=== PATIENT | female | born 1960 | race African-American/Black ===

== ENCOUNTER 2017-10-23 12:53 | Emergency (ER) | payer MEDICARE, MEDICAID ==
[2017-10-23 13:30] LABS: #Eosinphils 0.1 thou/uL (0.0-0.7); #Lymphocytes 1.9 thou/uL (1.20-3.40); #Monocytes 0.5 thou/uL (0.11-0.59); #Neutrophils 2.9 thou/uL (1.40-6.50); %Basophils 0.7 % (0.0-1.0); %Lymphocytes 34.4 % (21.0-51.0); %Monocytes 9.3 % (0.0-10.0); %Neutrophils 53.6 % (42.0-75.0); Hemoglobin 14.3 g/dL (12.0-16.0); Mean Corpuscular HGB CONC 33.9 g/dL (32.0-36.0); Mean Corpuscular Volume 85.5 fl (81.0-99.0); Mean Platelet Volume 9.1 fL (7.4-10.4); Platelet Count 198 thou/uL (130-400); RBC Distribution Width 12.7 % (11.5-14.5); Red Blood Cell (RBC) Count 4.93 mill/uL (4.20-5.40); White Blood Cell (WBC) Count 5.4 thou/uL (4.8-10.8)
[2017-10-23 13:50] LABS: ALT (SGPT) 30 U/L (8-55); AST (SGOT) 22 U/L (5-34); Albumin 3.6 g/dL (3.5-5.0); Alkaline Phosphatase 57 U/L (40-150); Anion Gap 14 mmol/L (10-20); BUN (Urea Nitrogen) 12 mg/dL (9.8-20.1); Bilirubin, Total 0.2 mg/dL (0.2-1.2); CK (CPK) 47 U/L (29-168); CKMB 0.8 ng/mL (0-6.6); Calc. Creatinine Clearance 0 mL/min (70-130); Calcium 10.7 mg/dL (7.8-10.44); Carbon Dioxide 22 mmol/L (22-29); Chloride 106 mmol/L (98-107); Estimated GFR-MDRD Greater than 90; Globulin 3.6 g/dL (2.4-3.5); Glucose 102 mg/dL (70-105); Lipase 40 U/L (8-78); Protein, Total 7.2 g/dL (6.0-8.3); Sodium 138 mmol/L (136-145); Troponin I Less than 0.010 ng/mL (< 0.028)
--- NOTE | 2017-10-23 13:58 | RAD ---
PORTABLE CHEST: HISTORY: Cough. FINDINGS: Comparison is made to a chest film from May 2012. There is new left perihilar opacity worrisome for left perihilar infiltrate or mass lesion. This nadir uld be closely followed with medical treatment to ensure clearing. The lungs are otherwise clear. No effusion. Heart size within normal range. IMPRESSION: Abnormal left perihilar opacity, probably representing perihilar infiltrate given history of cough. Close followup is recommended to ensure clearing. Followup exam should be performed with upright PA and lateral views of chest. POS: [facility]
[2017-10-23] MEDS ORDERED: ISOVUE-370 76%-LOCM 1 ML ONE (15:08)
--- NOTE | 2017-10-23 15:26 | CT ---
CT ANGIO CHEST WITH CONTRAST: INDICATIONS: Left perihilar mass/infiltrate noted on plain film. Assess the damage performed to assess for pulmon carl embolus and further assess this mass density seen on plain film. TECHNIQUE: Multiple axial tomograms obtained through the chest with arterial enhancement, following pulmonary an vicenta protocol. Multiplanar reconstruction and 3D post processing performed. FINDINGS: The pulmonary arteries show adequate opacification. No evidence of pulmonary embolus identified. The thoracic aorta shows atherosclerotic change and some irregularity of the lumen of the descending thoracic aorta. No dissection. There is a left infrahilar mass, measuring approximately 4 cm in diameter. This mass encircles the l eft descending pulmonary artery. The lungs are otherwise clear. The mediastinum is unremarkable. The imaged upper abdomen is unremar kable. The osseous structures are unremarkable. IMPRESSION: 1. No evidence of pulmonary embolus. 2. Left infrahilar mass, suspicious for neoplasm. Surrounding infiltrate cannot be excluded. Findi ngs were discussed with Dr. Yoon. POS: [facility]
--- NOTE | 2017-11-10 15:43 | EKG ---
Test Reason : Blood Pressure : / mmHG Vent. Rate : 086 BPM Atrial Rate : 086 BPM P-R Int : 140 ms QRS Dur : 084 ms QT Int : 386 ms P-R-T Axes : 069 065 074 degrees QTc Int : 461 ms Sinus rhythm with occasional Premature ventricular complexes Possible Left atrial enlargement Borderline ECG Confirmed by PRINCE ALFREDO, TAMIE ([id number]), scientific publications editor HARLEY CID ([id number]) on 11/10/2017 3:43:06 PM Referred By: Confirmed By:TAMIE MORRISON MD
== END 2017-10-23 15:21 | disposition home or self-care (01) ==
LOC: ERS 12:53
DX: R91.8 Other nonspecific abnormal finding of lung field (principal); E11.9 Type 2 diabetes mellitus without complications; I10 Essential (primary) hypertension; F17.210 Nicotine dependence, cigarettes, uncomplicated; Z79.899 Other long term (current) drug therapy; Z79.84 Long term (current) use of oral hypoglycemic drugs; Z86.718 Personal history of other venous thrombosis and embolism
CPT/HCPCS: 36416; 71045; 71275; 80053; 82550; 82553; 83690; 83880; 84484; 85025; 93005; 96360

== ENCOUNTER 2017-10-26 23:30 | Inpatient (IN) | payer MEDICARE, MEDICAID ==
[2017-10-26 23:57] LABS: #Basophils 0.1 thou/uL (0.0-0.2); #Eosinphils 0.2 thou/uL (0.0-0.7); #Lymphocytes 2.2 thou/uL (1.20-3.40); #Monocytes 0.7 thou/uL (0.11-0.59); #Neutrophils 3.9 thou/uL (1.40-6.50); %Basophils 1.3 % (0.0-1.0); %Eosinophils 2.1 % (0.0-10.0); %Lymphocytes 31.4 % (21.0-51.0); %Monocytes 10.1 % (0.0-10.0); %Neutrophils 55.1 % (42.0-75.0); Hemoglobin 14.6 g/dL (12.0-16.0); Mean Corpuscular HGB CONC 36.3 g/dL (32.0-36.0); Mean Corpuscular Hemoglobin 30.4 pg (27.0-31.0); Mean Corpuscular Volume 83.9 fl (81.0-99.0); Mean Platelet Volume 8.5 fL (7.4-10.4); Platelet Count 187 thou/uL (130-400); RBC Distribution Width 12.5 % (11.5-14.5)
[2017-10-27 00:03] LABS: PTT 27.9 SEC (22.9-36.1)
[2017-10-27 00:13] LABS: ALT (SGPT) 39 U/L (8-55); AST (SGOT) 28 U/L (5-34); Albumin 3.8 g/dL (3.5-5.0); Alkaline Phosphatase 54 U/L (40-150); Anion Gap 13 mmol/L (10-20); BUN (Urea Nitrogen) 18 mg/dL (9.8-20.1); Bilirubin, Total 0.3 mg/dL (0.2-1.2); CK (CPK) 53 U/L (29-168); Calc. Creatinine Clearance 0 mL/min (70-130); Carbon Dioxide 20 mmol/L (22-29); Chloride 106 mmol/L (98-107); Estimated GFR-MDRD 85; Globulin 3.7 g/dL (2.4-3.5); Glucose 118 mg/dL (70-105); Potassium 4.1 mmol/L (3.5-5.1); Protein, Total 7.5 g/dL (6.0-8.3); Sodium 135 mmol/L (136-145)
[2017-10-27 00:14] LABS: CKMB 1.3 ng/mL (0-6.6); Troponin I Less than 0.010 ng/mL (< 0.028)
[2017-10-27 00:33] LABS: Acetaminophen Less than 6.0 mcg/mL (10.0-30.0); Alcohol 79 mg/dL (Less than 10); Salicylate Less than 8.0 mg/dL (15.0-30.0)
[2017-10-27 00:49] LABS: Bilirubin Negative (Negative); Blood, Urine Negative (Negative); Clarity CLEAR (Clear); Glucose, Urine (Dipstick) Negative (Negative); Leukocyte Negative (Negative); Nitrite Negative (Negative); Protein, Urine (Dipstick) Negative (Neg-Trace); Specific Gravity, Urine 1.007 (1.002-1.036); pH, Urine 5.5 (5.0-9.0)
[2017-10-27 00:59] LABS: Amphetamine Not Detected (NotDetected); Barbiturates Screen Not Detected (NotDetected); Benzodiazepine Screen Not Detected (NotDetected); Cocaine Metabolite Screen Not Detected (NotDetected); Medtox Control Line Valid? VALID (VALID); Medtox Reader # READER 4; Methadone Not Detected (NotDetected); Methamphetamine Not Detected (NotDetected); Opiate Screen Not Detected (NotDetected); Oxycodone Screen Not Detected (NotDetected); Phencyclidine (PCP) Not Detected (NotDetected); THC/Cannabinoid Screen Detected (NotDetected); Tricyclic Screen Not Detected (NotDetected)
[2017-10-27] MEDS ORDERED: HumaLOG 300 UNITS/3 ML VIAL SC PRN ×2 (04:48→09:08)
[2017-10-27] MEDS ORDERED: Dextrose 50% Abboject 50 ML SYRINGE SLOW IVP PRN ×2 (04:48→09:08)
[2017-10-27] MEDS ORDERED: Dextrose 5% in Water 1,000 ML IV PRN ×2 (04:48→09:08)
[2017-10-27 04:54] LABS: Troponin I Less than 0.010 ng/mL (< 0.028)
[2017-10-27 05:00] LABS: Lavender RECEIVED; Red RECEIVED
[2017-10-27 06:54] VITALS: BMI 30.9
[2017-10-27 07:59] LABS: Troponin I Less than 0.010 ng/mL (< 0.028)
[2017-10-27] MEDS ORDERED: Aspirin 81 mg Enteric Coated Tablet PO SCH (09:00)
--- NOTE | 2017-10-27 09:06 | PDOC.PN ---
- Subjective Encounter Start Date: 10/27/17 Encounter Start Time: 09:05 Subjective: poor historian, i'm ok. oriented X 3 - Objective MAR Reviewed: Yes Vital Signs & Weight: Vital Signs (12 hours) Temp Pulse Resp BP Pulse Ox 10/27/17 07:34 97.4 F L 69 20 139/66 95 10/27/17 06:12 98.1 F 79 20 136/89 96 Weight Weight 174 lb 14.4 oz Result Diagrams: 10/26/17 23:48 10/26/17 23:48 Phys Exam - Physical Examination Neck: no JVD Respiratory: clear to auscultation bilateral Cardiovascular: RRR, no significant murmur Gastrointestinal: soft, positive bowel sounds Musculoskeletal: edema present L 7th palsy, weak L arm, follows directions poorly Dx/Plan (1) CVA (cerebral vascular accident) Code(s): I63.9 - CEREBRAL INFARCTION, UNSPECIFIED Status: Acute Qualifiers: CVA mechanism: unspecified Qualified Code(s): I63.9 - Cerebral infarction, unspecified (2) Hypercalcemia Code(s): E83.52 - HYPERCALCEMIA Status: Acute (3) DM type 2 (diabetes mellitus, type 2) Status: Acute Qualifiers: Diabetes mellitus snf insulin use: unspecified snf insulin use status Diabetes mellitus complication status: with unspecified complications Qualified Code(s): E11.8 - Type 2 diabetes mellitus with unspecified complications (4) HTN (hypertension) Code(s): I10 - ESSENTIAL (PRIMARY) HYPERTENSION Status: Chronic (5) Lung mass Code(s): R91.8 - OTHER NONSPECIFIC ABNORMAL FINDING OF LUNG FIELD Status: Acute - Plan MRI brain, ASA, Statin -: accu/ss -: need home meds, FU -: Bx lung mass ordered * .
--- NOTE | 2017-10-27 09:39 | CT ---
PRELIMINARY REPORT/[facility]/EMERGENCY AFTER HOURS PROCEDURE: EXAM: CT Head Without Intravenous Contrast CLINICAL HISTORY: 57 years old, female; Signs and symptoms; Altered mental status/memory loss; Patient HX: AMS f59 pres ents to the ed with family who states that pt. Has been confused and has not been acting normal today . Pt. Family states that pt. Was seen in the ed 3 days ago. Pt. Denies having pain anywhere. Pt. Stat es that cough has persisted for several days. Pt. Denies having any trouble w her eyes or ears. Pt. A dmits to having consumed alcohol today. TECHNIQUE: Axial computed tomography images of the head/brain without intravenous contrast. COMPARISON: No relevant prior studies available. FINDINGS: Brain: Scattered areas of hypoattenuation, likely chronic small vessel ischemic change, demyelination , or gliosis. Ventricles: Normal. Bones/joints: Normal. No acute fracture. Soft tissues: Normal. Sinuses: Normal. Mastoid air cells: Normal as visualized. No mastoid effusion. IMPRESSION: 1. No acute findings. 2. Non-acute findings are described above. Thank you for allowing us to participate in the care of your patient. Dictated and Authenticated by: Pasquale Chino MD 10/27/2017 1:08 AM Central Time ([place] & [place]) FINAL REPORT CT HEAD NONCONTRAST: DATE: 10/27/17. TIME: Performed on an emergency basis at 0036 hours. HISTORY: Altered mental status. COMPARISON: 06/11/12. FINDINGS: Agree with the preliminary report by Dr. Chino range of [facility]. Chronic-type find ings are stable. No acute intracranial abnormalities are demonstrated on noncontrast CT head. POS: [facility]
--- NOTE | 2017-10-27 09:41 | RAD ---
CHEST 1 VIEW: History Dyspnea. Altered mental status. COMPARISON: 10/23/17. FINDINGS: Cardiac silhouette is magnified by projection. Pulmonary vasculature upper limits of normal. Promin ence of the right hilum is less apparent. No lobar consolidation or evidence of pneumothorax. Posto perative changes left neck. IMPRESSION: No active cardiopulmonary abnormalities are demonstrated. POS: [facility]
--- NOTE | 2017-10-27 10:44 | HP ---
CHIEF COMPLAINT: Generalized weakness/altered mental status. HISTORY OF PRESENT ILLNESS: Patient is a 57-year-old female with a history of strokes, hypertension, history of diabetes who comes in to the hospital with some altered mental status. Patient's family is at the bedside, which is her brother and her [id number] who states that patient has been living with a roommate who called and stated that they were concerned since the patient has been acting str anastasiia. The patient upon review of the documents was here in the ER a couple days ago for hypoglycem ia. Patient's family states that she has been acting strange and has not been able to do certain thi ngs for the past 2-3 days. Patient has been having trouble opening jars, also has been having worsen ing weakness of her right side. Patient's family stated that she has had a stroke with right-sided w eakness in the past; however, normally she is able to ambulate without any difficulties. No weight l oss has been noticed per family and patient. The patient denies any abdominal pain or diarrhea or an y chest pain or shortness of breath. PAST MEDICAL HISTORY: History of diabetes and also hypertension. There is a mention of deep vein th rombosis; however, the family is not sure about that and there is some history of vascular disease. PAST SURGICAL HISTORY: She has had a left carotid endarterectomy and bilateral neck surgery for bloo d clots, partial hysterectomy. SOCIAL HISTORY: The patient drinks socially and also smokes and has used occasional marijuana in the past. ALLERGIES: She is allergic to CODEINE. HOME MEDICATIONS: Gabapentin 300 mg 3 capsules at bedtime, Ventolin HFA 1 inhalation twice a day, pr avastatin 40 mg daily, lisinopril 10 mg daily, metformin 500 mg daily. PHYSICAL EXAMINATION: VITAL SIGNS: Temperature of 97.7, 20, pulse 92, 96% on room air, blood pressure 161/99. GENERAL: She is awake, oriented x2; however, cognitive ability is decline. She is unable to continu e a normal conversation with me. HEENT: Normocephalic, atraumatic. Mucous membranes are dry and intact. NECK: No lymphadenopathy noted. LUNGS: Clear to auscultation. No rhonchi, wheezes noted. CARDIOVASCULAR: S1, S2 present. No murmurs, rubs or gallops. ABDOMEN: Obese. Bowel sounds are present x2. EXTREMITIES: No edema. Pedal pulses are present x2. NEUROVASCULAR: She has got some decreased strength on the right side in the upper extremity and decr eased strength on her right lower extremity. She does follow commands. Cranial nerves II through XI are intact. Unable to do cerebellum test. The patient is unable to focus. SKIN: No lesions noted. PSYCHIATRIC: Her affect is flat. REVIEW OF SYSTEMS: All negative except for the ones mentioned above in the HPI. LABORATORY DATA AND IMAGING: WBC of 7.0, hemoglobin of 14.6, hematocrit of 40.3, and platelets of 18 7. Sodium 135, potassium of 4.1, bicarbonate of 20, gap of 13, BUN of 18, creatinine of 0.83. Her c alcium level is 11. Her BNP is normal at 15. TSH is 2.8. Her urine that was done yesterday was neg ative. Urine that was done today indicated marijuana and her plasma alcohol level was 79. The patie nt had a CT head, which was negative. Chest x-ray indicated some left hilar prominence. ASSESSMENT AND PLAN: The patient is a very pleasant 57-year-old female who comes to the hospital wit h altered mental status. 1. Altered mental status, could be secondary to electrolyte abnormalities like hypercalcemia versus stroke versus something metabolic. Upon reviewing the patient's chart, the patient was in the ER on 10/23 of this year, just a few days ago. She came in with hypoglycemia. X-ray indicated some left h ilar prominence, so she underwent a CTA of the chest which indicated a left hilar mass. At this time , the patient was notified about this mass and indicated to follow up with Oncology and Oncology also was called about this. We will get a CT-guided biopsy of this mass. The patient has a known histor y of smoking. We will also check a paraneoplastic syndrome panel. I am not sure if maybe that could be causing the patient's change in mentation since she is not taking any new medications. She does not have a UTI. Also, hypercalcemia could be causing the patient's confusion. We will check a PTH l evel. Also, we will start the patient on some IV hydration. In terms of a stroke, CT head was negat maria e. The patient has had a history of strokes in the past. We will also do an MRI just to make sure that she did not have a new stroke. In terms of aspirin, we will kind hold her aspirin for now. Gi umberto the fact of doing a CT-guided biopsy, if radiology feels that the aspirin does not need to be hel d, we will continue the aspirin and also go ahead with the CT-guided biopsy of her lung. 2. Hypercalcemia could be secondary to dehydration or elevated PTH. We will check a PTH. We will a lso hydrate the patient. We will check a vitamin D. 3. Diabetes. We will put the patient on sliding scale insulin and continue to monitor. 4. Hypertension. We will start the patient's home medications and continue to monitor. 5. Deep venous thrombosis prophylaxis. We will hold subcutaneous heparin. We will put the patient on sequential compression devices. Of note, there is a mention that the patient has had deep venous thrombosis in the past. I would want to clarify in regards to this and the patient is currently not on any anticoagulation at home either.
[2017-10-27 10:47] LABS: Troponin I Less than 0.010 ng/mL (< 0.028)
--- NOTE | 2017-10-27 11:36 | MRI ---
MRI BRAIN NONCONTRAST: History CVA. Altered mental status. FINDINGS: Centered within the cortex of the anterior aspect left parietal lobe is a gyriform focus of restricte d diffusion measuring up to 2.1 cm with corresponding defect on the ADC mapping images. Smaller foci of acute infarct are also present within the left parietal and frontal white matter. There is no ma ss effect or shift of midline structures. Chronic ischemic small-vessel disease is apparent within t he periventricular white matter of each cerebral hemisphere. IMPRESSION: 1. Small areas of acute infarct involving the left parietal and frontal lobes as detailed above, lik erick related to a recent showering phenomenon with small peripheral arterial occlusions. No large ves ana distribution defect is apparent. 2. Additional chronic ischemic small-vessel disease is consistent with vascular disease. POS: [facility]
[2017-10-27] MEDS: Sodium Chloride 0.9% 1,000 ML IV SCH ×2 (11:55→15:04)
--- NOTE | 2017-10-27 13:03 | CON ---
DATE OF CONSULTATION: 10/26/2017 CONSULTING PHYSICIAN: Hospitalist Service. IMPRESSION: 1. Prior history of stroke with extensive small vessel ischemic changes. 2. Hypercalcemia. PLAN: 1. Continue aspirin. 2. Address hypercalcemia. HISTORY OF PRESENT ILLNESS: Ms. Piña is a 57-year-old black female, who reports having a past his tory of a stroke several years ago, resulting in some left-sided weakness. She has not had any recur rent focal symptoms recently. She came to the hospital with a vague complaint that she did not feel well. There were notable abnormalities on her lab work with a calcium level of 11 and an elevated PT H. She had her CT done, which showed fairly extensive small vessel changes on the right more so than on the left. She denies any risk factors for stroke, but she reportedly was taking medication for d iabetes as well as hypertension and hyperlipidemia. PAST MEDICAL HISTORY: Reportedly negative despite her medication list. ALLERGIES: CODEINE. SOCIAL HISTORY: Positive for tobacco and alcohol use. She denies any illicit drug use. FAMILY HISTORY: Noncontributory. REVIEW OF SYSTEMS: No complaint of headache, nausea, vomiting, chest pain, abdominal pain, shortness of breath, lateralized weakness, or numbness. PHYSICAL EXAMINATION: GENERAL: She is a well-nourished middle-aged woman, who is resting and otherwise appropriate in her demeanor. She seemed a bit sleepy, but followed commands appropriately. HEENT: Pupils are equal and reactive. Conjunctivae clear. Oropharynx clear. NECK: Supple. EXTREMITIES: No cyanosis or edema noted. NEUROLOGIC EXAM: She was alert and cooperative. She was oriented to person, place, and time. Her s peech was fluent and clear. Cranial nerves II-XII are intact. Motor exam showed symmetric strength. Sensation was symmetric to light touch. There was no tremor or dysmetria present. No abnormal mov ements were seen. Reflexes were symmetric. IMAGING: Reviewed. SUMMARY: This is a middle-aged woman with apparent well-controlled hypertension, diabetes, and hyper lipidemia with a prior stroke. There was apparently some alteration of consciousness reported by gómez corby, but there is nothing clear at this point based on her history from her. She feels like things are better today than yesterday. Workup thus far is only notable for the hypercalcemia and prior sma ll vessel ischemia, but continue addressing risk factors and patient can be discharged home at your d iscretion.
--- NOTE | 2017-10-27 14:22 | ULT ---
CAROTID DUPLEX SONOGRAM: HISTORY: TIA. Vascular disease. FINDINGS: RIGHT: Mild plaque. Color and spectral Doppler evaluation, peak systolic velocity of 103 cm/s, and IC to CC ratio of 1.1 suggests no hemodynamically significant stenosis within the extracranial right ICA. An tegrade flow within the vertebral artery. LEFT: Prominent plaque at the carotid bifurcation. No flow visible within the internal carotid artery. No rmal velocities within the common carotid and external carotid artery. No flow is apparent within th e vertebral artery. IMPRESSION: 1. Complete or near-complete occlusion of the left internal carotid artery. Please consider correla tion with conventional or CT arteriography. 2. Nonvisualization left vertebral artery. POS: [facility]
[2017-10-27] MEDS ORDERED: ISOVUE-370 76%-LOCM 1 ML ONE (16:39)
--- NOTE | 2017-10-27 16:40 | PDOC.EVN ---
Event Note - Event Note Event Note: MRI pos for acute CVA. carotid US near or complete L carotid stonosis. will get CTA of neck
--- NOTE | 2017-10-27 19:55 | CT ---
CT ANGIOGRAM NECK WITH CONTRAST: 10/27/17 HISTORY: Left sided carotid stenosis. COMPARISON: Ultrasound same day. FINDINGS: CT angiogram of the neck performed after the intravenous administration of contrast. 3D rendering pro vided. There is an abnormal mass within the superior segment left lower lobe incompletely evaluated o n this examination. Moderate emphysematous changes in the lung apices. Thyroid is unremarkable. There are surgical clips along the left anterior neck. Mild degenerative disc space narrowing at C5-6. VESSELS: RIGHT SIDE: The right vertebral artery is patent. The right common carotid artery is patent. Mild atherosclerotic plaque. Internal carotid artery is patent. No hemodynamically significant stenosis using NASCET criteria. The re is approximately 40-50% stenosis of the cavernous right ICA. LEFT SIDE: The vertebral artery is patent. The vertebral arteries are codominant. The visualized portions of the basilar artery is patent. There is multilevel less than 50% area of stenosis due to soft plaque of the left common carotid ray ry. Complete occlusion of the left internal carotid artery with multiple adjacent surgical clips. Rec onstitution is seen at the level of the carotid terminus. IMPRESSION: 1. Complete occlusion left internal carotid artery with left neck surgical clips. 2. Incompletely evaluated mass in the superior segment left lower lobe concerning for malignancy . POS: [facility]
[2017-10-27] MEDS ORDERED: Atorvastatin Calcium 20 MG TAB PO SCH (21:00)
[2017-10-28] MEDS: hydrALAZINE 20 MG/ML VIAL SLOW IVP PRN ×2 (00:15→10:52)
[2017-10-28] MEDS: Sodium Chloride 0.9% 1,000 ML IV SCH ×2 (00:19→10:49)
[2017-10-28 05:16] LABS: Cardiac Risk 4.5 (Less than 4.5)
[2017-10-28 07:07] LABS: ALT (SGPT) 36 U/L (8-55); AST (SGOT) 26 U/L (5-34); Albumin 3.5 g/dL (3.5-5.0); Alkaline Phosphatase 52 U/L (40-150); Anion Gap 11 mmol/L (10-20); BUN (Urea Nitrogen) 10 mg/dL (9.8-20.1); Bilirubin, Total 0.5 mg/dL (0.2-1.2); Calc. Creatinine Clearance 126 mL/min (70-130); Calcium 10.7 mg/dL (7.8-10.44); Carbon Dioxide 21 mmol/L (22-29); Chloride 109 mmol/L (98-107); Estimated GFR-MDRD Greater than 90; Globulin 3.4 g/dL (2.4-3.5); Glucose 116 mg/dL (70-105); Potassium 3.9 mmol/L (3.5-5.1); Protein, Total 6.9 g/dL (6.0-8.3); Sodium 137 mmol/L (136-145)
--- NOTE | 2017-10-28 08:12 | PDOC.PN ---
- Subjective Encounter Start Date: 10/28/17 (f/u stroke) Encounter Start Time: 08:11 Subjective: Pt denies any pain or problems, states her strength feels normal this morn -: She denies any problems speaking/swallowing - Objective MAR Reviewed: Yes Vital Signs & Weight: Vital Signs (12 hours) Temp Pulse Resp BP Pulse Ox 10/28/17 03:14 98.4 F 96 20 142/70 H 92 L 10/28/17 00:55 146/110 H 10/27/17 23:35 97.9 F 85 20 184/104 H 95 I&O: 10/27/17 10/28/17 10/29/17 06:59 06:59 06:59 Intake Total 3090 Balance 3090 Result Diagrams: 10/26/17 23:48 10/28/17 04:55 Additional Labs: Accuchecks 10/28/17 10/27/17 10/27/17 04:59 20:25 17:25 POC Glucose 121 H 112 H 126 H Radiology Reviewed by me: Yes (MRI - acute infarct left parietal/frontal with showering phenomena) EKG Reviewed by me: Yes (tele -sinus 60's, occ pvc's) Phys Exam - Physical Examination Constitutional: NAD HEENT: moist MMs, sclera anicteric pupils equal and round Respiratory: no wheezing, no rales, no rhonchi Cardiovascular: RRR, no significant murmur Gastrointestinal: soft, non-tender, no distention, positive bowel sounds Musculoskeletal: no edema clubbing of fingers right side 4/5 upper and lower extremity Deviation from normal: speech slowed -uncertain if this is new or normal, pt appears to comprehend Skin: no rash Dx/Plan (1) CVA (cerebral vascular accident) Code(s): I63.9 - CEREBRAL INFARCTION, UNSPECIFIED Status: Acute Qualifiers: CVA mechanism: unspecified Qualified Code(s): I63.9 - Cerebral infarction, unspecified (2) Mass of left lung Code(s): R91.8 - OTHER NONSPECIFIC ABNORMAL FINDING OF LUNG FIELD Status: Acute (3) Occlusion of left internal carotid artery Code(s): I65.22 - OCCLUSION AND STENOSIS OF LEFT CAROTID ARTERY Status: Chronic (4) Dyslipidemia Code(s): E78.5 - HYPERLIPIDEMIA, UNSPECIFIED Status: Chronic (5) DM type 2 (diabetes mellitus, type 2) Status: Chronic Qualifiers: 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 Follow mental status - uncertain if pt is at baseline or this is new related to stroke or something else. * Hx of breathing problems - uncertain if asthma/copd - resume albuterol for prn use * Lung mass - CT guided bx ordered for tomorrow - concern for malignancy per CT report * DM - controlled, mild ssi * Dyslipidemia - increase statin * Left ICA occlusion - with complete occlusion no tx available per discussion with Vascular surgery. * * dvt prophy - scd's * GI prophy - not indicated * code status - full * * Reviewed the plan of care with patient who demonstrated understanding. Offered to contact family - she declines. No questions or further needs at end of eval.
[2017-10-28] MEDS: Lisinopril 5 MG TAB PO SCH (09:00)
[2017-10-28] MEDS: Aspirin 325 MG TAB PO SCH (09:00)
[2017-10-28] MEDS: Albuterol Sulfate 1.25 MG/3 ML NEB NEB SCH ×4 (10:29→23:20)
[2017-10-28] MEDS ORDERED: Labetalol HCl 100 MG/20 ML VIAL SLOW IVP PRN (11:07)
--- NOTE | 2017-10-28 12:20 | CON ---
DATE OF ADMISSION: 10/27/2017 DATE OF CONSULTATION: 10/28/2017 HISTORY OF PRESENT ILLNESS: Ms. Piña was admitted through the emergency department on 10/27/2017. She has history of previous strokes, hypertension, diabetes, and a left carotid endarterectomy in 2012. On review of Dr. Falcon's operative report, the carotid at the time of the endarterectomy was small distally, admitting only #8 shunt. Endarterectomy was performed with patch angioplasty without incident or postoperative problem. The patient never followed up with Dr. Falcon postoperatively. The patient has had worsening weakness of her right side over the past 3 to 4 days and also had speech problems. She has had a stroke in the past with right- sided weakness. She currently is having decreased strength on her right upper extremity and the lower extremity. She also had speech difficulties. She has had a carotid ultrasound followed by a CT angiogram confirming left internal carotid artery occlusion. The right carotid system has a less than 50% of stenosis. PAST MEDICAL HISTORY: 1. Diabetes. 2. Hypertension. 3. Carotid disease. 4. ? DVT history. 5. Vascular disease. 6. Left Lung mass. PAST SURGICAL HISTORY: 1. Left carotid endarterectomy. 2. Hysterectomy. SOCIAL HISTORY: She continues to smoke and use marijuana in the past. ALLERGIES: CODEINE. HOME MEDICINES: 1. Gabapentin 300 mg 3 capsules at bedtime. 2. Ventolin inhaler twice a day. 3. Pravastatin 40 mg at bedtime. 4. Lisinopril 10 mg every day. 5. Metformin 500 mg every day. PHYSICAL EXAMINATION: VITAL SIGNS: Temperature is 97.4, pulse is 87 and regular, blood pressure is 200/90. NECK: Supple. She has soft bruits. LUNGS: Clear bilaterally with diminished breath sounds. HEART: Rhythm is regular. ABDOMEN: Soft and nontender. NEUROLOGIC: She has a weak right upper and lower extremity and difficulty with her speech, difficulty focusing. ASSESSMENT AND PLAN: Status post cerebrovascular accident involving the left hemisphere with an occluded left carotid. I have reviewed her US and CTA and agree with the assessment. There is no treatment available for an occluded carotid. She also has a left lung mass, for which she is due to get a left CT-guided biopsy on tomorrow. [facility]
[2017-10-28] MEDS: Atorvastatin Calcium 40 MG TAB PO SCH (21:20)
[2017-10-29] MEDS: Albuterol Sulfate 1.25 MG/3 ML NEB NEB SCH ×6 (03:50→23:17)
[2017-10-29 05:01] LABS: #Eosinphils 0.1 thou/uL (0.0-0.7); #Lymphocytes 1.8 thou/uL (1.20-3.40); #Monocytes 0.7 thou/uL (0.11-0.59); #Neutrophils 3.1 thou/uL (1.40-6.50); %Basophils 0.5 % (0.0-1.0); %Eosinophils 2.6 % (0.0-10.0); %Lymphocytes 31.1 % (21.0-51.0); %Monocytes 11.6 % (0.0-10.0); %Neutrophils 54.3 % (42.0-75.0); Hemoglobin 13.5 g/dL (12.0-16.0); Mean Corpuscular HGB CONC 35.9 g/dL (32.0-36.0); Mean Corpuscular Hemoglobin 30.1 pg (27.0-31.0); Mean Corpuscular Volume 83.9 fl (81.0-99.0); Mean Platelet Volume 9.1 fL (7.4-10.4); Platelet Count 179 thou/uL (130-400); RBC Distribution Width 12.5 % (11.5-14.5); White Blood Cell (WBC) Count 5.6 thou/uL (4.8-10.8)
[2017-10-29 05:05] LABS: Anion Gap 11 mmol/L (10-20); BUN (Urea Nitrogen) 7 mg/dL (9.8-20.1); Calc. Creatinine Clearance 120 mL/min (70-130); Calcium 10.3 mg/dL (7.8-10.44); Carbon Dioxide 22 mmol/L (22-29); Chloride 109 mmol/L (98-107); Estimated GFR-MDRD Greater than 90; Glucose 122 mg/dL (70-105); Potassium 3.8 mmol/L (3.5-5.1); Sodium 138 mmol/L (136-145)
[2017-10-29] MEDS: Sodium Chloride 0.9% 1,000 ML IV SCH ×3 (05:36→21:41)
--- NOTE | 2017-10-29 08:22 | PDOC.PN ---
- Subjective Encounter Start Date: 10/29/17 Encounter Start Time: 08:21 Still has a cough. Mentation is better, but she is not sure if she is at her baseline. She has a good understanding of the clinical situation. - Objective Vital Signs & Weight: Vital Signs (12 hours) Temp Pulse Resp BP Pulse Ox 10/29/17 08:00 98.5 F 90 18 94 L 10/29/17 07:07 83 16 95 10/29/17 04:00 98.1 F 84 16 176/86 H 96 10/29/17 03:50 95 10/28/17 23:56 98.0 F 87 16 151/78 H 97 10/28/17 23:20 95 10/28/17 21:10 137/87 10/28/17 21:00 97.9 F 84 16 188/87 H 94 L 10/28/17 20:59 97.9 F 84 16 94 L I&O: 10/28/17 10/29/17 10/30/17 06:59 06:59 06:59 Intake Total 3090 Balance 3090 Result Diagrams: 10/29/17 04:16 10/29/17 04:16 Additional Labs: Accuchecks 10/29/17 10/28/17 10/28/17 05:22 22:00 16:41 POC Glucose 105 126 H 127 H 10/28/17 10:38 POC Glucose 106 Phys Exam - Physical Examination Constitutional: NAD HEENT: PERRLA, oral pharynx no lesions Neck: no nodes, no JVD Respiratory: no wheezing Mild, scattered rales Cardiovascular: RRR, no significant murmur Gastrointestinal: soft, non-tender, no distention Musculoskeletal: no edema, pulses present Profound clubbing of the fingers Very minimal weakness RUE Psychiatric: normal affect Skin: no rash Dx/Plan (1) CVA (cerebral vascular accident) Code(s): I63.9 - CEREBRAL INFARCTION, UNSPECIFIED Status: Acute Qualifiers: CVA mechanism: unspecified Qualified Code(s): I63.9 - Cerebral infarction, unspecified Plan: Appears stable after the acute CVA. Mentation appears to be close to baseline. Continue therapy, statin, asa, bp control. (2) Hypercalcemia Code(s): E83.52 - HYPERCALCEMIA Status: Acute Plan: Improved with hydration. Suspect related to lung mass. (3) Mass of left lung Code(s): R91.8 - OTHER NONSPECIFIC ABNORMAL FINDING OF LUNG FIELD Status: Acute Plan: CT guided biopsy of lung mass. Suspicious for malignancy. 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 Continue SSI. (5) Dyslipidemia Code(s): E78.5 - HYPERLIPIDEMIA, UNSPECIFIED Status: Chronic Plan: High potency statin. (6) HTN (hypertension) Code(s): I10 - ESSENTIAL (PRIMARY) HYPERTENSION Status: Chronic Qualifiers: Hypertension type: essential hypertension Qualified Code(s): I10 - Essential (primary) hypertension Plan: On appropriate meds. May need further titration. Continue to monitor. (7) Occlusion of left internal carotid artery Code(s): I65.22 - OCCLUSION AND STENOSIS OF LEFT CAROTID ARTERY Status: Chronic Plan: Evaluated by vasc surg. No good interventional options. - Plan * As above.
[2017-10-29] MEDS: Lisinopril 5 MG TAB PO SCH (08:56)
[2017-10-29] MEDS ORDERED: Atropine Sulfate 0.4 mg/1 ml Vial IM SCH (10:30)
[2017-10-29] MEDS ORDERED: Lidocaine 4% PF 5 ML AMP NEB SCH (10:30)
[2017-10-29] MEDS: Aspirin 325 MG TAB PO SCH (11:29)
--- NOTE | 2017-10-29 16:06 | CON ---
DATE OF CONSULTATION: 10/29/2017 Entirety of the consultation was 70 minutes. At that time, greater than 50% was spent with the patie nt and/or in the patient's unit in the hospital. REASON FOR CONSULTATION: Lung mass. CONSULTING PHYSICIAN: Dr. Luis Antonio Osborne from Radiology. HISTORY OF PRESENT ILLNESS: This is a 57-year-old female, who was hospitalized at this facility 2 da ys ago. At that time, she was having a right-sided weakness. Workup demonstrated a left hilar lung mass. Initially, Dr. Ciro Bowers was consulted and ordered a CT needle biopsy of the lung mass. I was called by Dr. Osborne this morning stating he thought that this lesion might be more amenable to b ronchoscopy. The CT shows a mass in the left hilum. It looks like it is circumferentially around the takeoff to t he left lower lobe. She has had no hemoptysis or weight loss. She says she has a 1 pack per day his tory of smoking for the last 40 years. She also smokes marijuana. PAST MEDICAL HISTORY: 1. Diabetes mellitus. 2. Hypertension. 3. Stroke. 4. Carotid artery disease. 5. Deep venous thrombosis. 6. Left carotid endarterectomy. 7. Hysterectomy. SOCIAL HISTORY: See above. The patient would not state her occupation. ALLERGIES: CODEINE. MEDICATIONS PRIOR TO ADMISSION: Gabapentin, Ventolin metered dose inhaler, pravastatin, lisinopril, metformin. INPATIENT MEDICATIONS: Have the additional component of aspirin 325 mg daily. REVIEW OF SYSTEMS: She says her right side is weak, but she is able to walk, grasp things with her r ight arm. PHYSICAL EXAMINATION: VITAL SIGNS: Temperature is 98.5, pulse 90, respirations 16, O2 sat 94%, and blood pressure 178/86. GENERAL: The patient is awake, alert, fully conversant, is in no distress. HEENT: Remarkable for slight left facial droop. Oropharynx is clear. NECK: Without adenopathy, JVD, or bruits. LUNGS: Clear without wheezing or rhonchi. CARDIAC: S1 and S2 regular. No audible murmur, rub, or gallop. ABDOMEN: Soft, nontender, nondistended. EXTREMITIES: No clubbing, cyanosis, or edema. 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 She also has clubbing noted in all fingers. LABORATORY DATA: White blood cell count 5.6, hematocrit 37.8, platelet count 179. INR 1.0, sodium 1 30, potassium 3.8, chloride 109, CO2 of 22, BUN 7, creatinine 0.6, glucose 122. Drug screen was posi tive for marijuana. CT, I have reviewed the report and the films in detail. ASSESSMENT: 1. Left hilar lung mass. 2. Recent stroke. 3. Peripheral vascular disease. 4. Tobacco abuse. RECOMMENDATIONS: Discussed with the patient about the prospect perform bronchoscopy to diagnose the lung mass. Described the potential complications including bleeding, infection, accidental lung punc ture, and reaction to sedation. She understands the complications and agrees to undergo the procedur e tomorrow. I will ask Anesthesia to be involved for general endotracheal anesthesia for the procedu re. Aspirin will continue in the perioperative period.
[2017-10-29] MEDS: Atorvastatin Calcium 40 MG TAB PO SCH (21:41)
[2017-10-29] MEDS: hydrALAZINE 20 MG/ML VIAL SLOW IVP PRN (22:11)
[2017-10-30] MEDS: hydrALAZINE 20 MG/ML VIAL SLOW IVP PRN ×2 (03:17→11:30)
[2017-10-30] MEDS: Albuterol Sulfate 1.25 MG/3 ML NEB NEB SCH ×6 (03:50→23:43)
[2017-10-30] MEDS: Sodium Chloride 0.9% 1,000 ML IV SCH ×3 (05:36→17:51)
[2017-10-30] MEDS ORDERED: Fentanyl 100 MCG/2 ML VIAL ONE (08:01)
--- NOTE | 2017-10-30 09:26 | OP ---
DATE OF PROCEDURE: 10/30/2017 PROCEDURE: Bronchoscopy. PREOPERATIVE DIAGNOSIS: Left hilar lung mass. POSTOPERATIVE DIAGNOSIS: Left hilar lung mass. ANESTHESIA: General endotracheal anesthesia. DESCRIPTION OF PROCEDURE: The patient was brought to the OR and placed on cardiopulmonary monitoring . She was intubated by Anesthesia with 8.0 endotracheal tube and placed under general anesthesia for the procedure. A 2.8-mm Olympus bronchoscope was placed through an adapter into the patient's endot nils tube while she was on mechanical ventilation. The distal trachea was normal in appearance. The right mainstem bronchus, right upper lobe, right middle lobe, and right lower lobe were normal in appearance. The left mainstem bronchus was normal in appearance. The left upper lobe including the superior lingular segment was normal in appearance. The left lower lobe looked normal aside from st enotic superior segment of the left lower lobe. A series of transbronchial biopsies and endobronchia l brushings were performed in the superior segment. There was a small amount of bleeding resulted in the procedure, which was self-limited. Scope was then withdrawn. The patient was extubated and sen t to the recovery room in stable condition.
[2017-10-30 10:05] LABS: Ref Lab Test Ordered PAVAL
[2017-10-30] MEDS: Lisinopril 5 MG TAB PO SCH (10:31)
[2017-10-30] MEDS: Aspirin 325 MG TAB PO SCH (10:31)
--- NOTE | 2017-10-30 10:59 | PDOC.PN ---
- Subjective Encounter Start Date: 10/30/17 Encounter Start Time: 10:56 Feels fine. Tolerated bronch well. Upon questioning, the patient feels that she is back to her baseline neurologically and functionally. She feels she is well enough to care for herself at home. She lives with a roommate. Her sister is visiting her and has concerns about her ability to care for herself. - Objective Vital Signs & Weight: Vital Signs (12 hours) Temp Pulse Resp BP BP Pulse Ox 10/30/17 10:31 90 16 138/73 100 10/30/17 09:42 97.9 F 82 16 138/73 95 10/30/17 05:22 172/94 H 10/30/17 04:00 98.7 F 101 H 18 192/84 H 94 L 10/30/17 03:50 97 10/30/17 03:17 100 192/84 H 10/30/17 00:00 97.7 F 100 18 178/92 H 95 10/29/17 23:17 97 I&O: 10/29/17 10/30/17 10/31/17 06:59 06:59 06:59 Intake Total 1339 Balance 1339 Result Diagrams: 10/29/17 04:16 10/29/17 04:16 Additional Labs: Accuchecks 10/30/17 10/30/17 10/29/17 10:29 05:27 20:16 POC Glucose 113 H 143 H 141 H 10/29/17 10/29/17 16:45 10:44 POC Glucose 151 H 119 H Phys Exam - Physical Examination Constitutional: NAD HEENT: PERRLA, oral pharynx no lesions Respiratory: no wheezing, no rales, no rhonchi, clear to auscultation bilateral Cardiovascular: RRR, no significant murmur Gastrointestinal: soft, non-tender, no distention, positive bowel sounds Musculoskeletal: no edema Some right sided weakness, but 4/5. Psychiatric: normal affect Dx/Plan (1) CVA (cerebral vascular accident) Code(s): I63.9 - CEREBRAL INFARCTION, UNSPECIFIED Status: Acute Qualifiers: CVA mechanism: unspecified Qualified Code(s): I63.9 - Cerebral infarction, unspecified Plan: APPEARS STABLE. FEELS LIKE SHE IS BACK TO HER BASELINE. ANTICIPATE SHE WILL BE ABLE TO RETURN HOME. WILL CHECK WITH PT AND CM. (2) Hypercalcemia Code(s): E83.52 - HYPERCALCEMIA Status: Resolved (3) Mass of left lung Code(s): R91.8 - OTHER NONSPECIFIC ABNORMAL FINDING OF LUNG FIELD Status: Acute Plan: HAD BRONCH WITH BIOPSIES TODAY. LIKELY CANCER GIVEN THE CLINICAL PICTURE. AWAIT BIOPSY RESULTS. DOES NOT NEED TO STAY IN HOSPITAL FOR THAT. (4) DM type 2 (diabetes mellitus, type 2) Status: Chronic Qualifiers: Diabetes mellitus longterm insulin use: unspecified acid condenser insulin use status Diabetes mellitus complication status: with circulatory complication (5) Dyslipidemia Code(s): E78.5 - HYPERLIPIDEMIA, UNSPECIFIED Status: Chronic (6) HTN (hypertension) Code(s): I10 - ESSENTIAL (PRIMARY) HYPERTENSION Status: Chronic Qualifiers: Hypertension type: essential hypertension Qualified Code(s): I10 - Essential (primary) hypertension (7) Occlusion of left internal carotid artery Code(s): I65.22 - OCCLUSION AND STENOSIS OF LEFT CAROTID ARTERY Status: Chronic Plan: NO INTERVENTION POSSIBLE. - Plan * DISCUSSED WITH CM. PATIENT IS AMBULATING WELL. SHE WILL NEED TO GO HOME WITH HOME HEALTH. WILL OBSERVE HER TODAY AND MAKE SURE SHE DOES OK AFTER THE BIOPSY. HOME LATER TODAY OR IN AM.
[2017-10-30] MEDS ORDERED: Lidocaine 1% PF 5 ML VIAL ONE (13:21)
[2017-10-30] MEDS ORDERED: PHENYLEPHRINE-NS 100 MCG/ML 10 ML SYRINGE ONE (13:21)
[2017-10-30] MEDS ORDERED: PROPOFOL 200 MG/20 ML VIAL ONE (13:21)
[2017-10-30] MEDS: Atorvastatin Calcium 40 MG TAB PO SCH (21:36)
[2017-10-31] MEDS: hydrALAZINE 20 MG/ML VIAL SLOW IVP PRN (00:24)
[2017-10-31] MEDS: Albuterol Sulfate 1.25 MG/3 ML NEB NEB SCH ×2 (02:04→06:34)
[2017-10-31] MEDS: Sodium Chloride 0.9% 1,000 ML IV SCH ×3 (03:22→03:24)
[2017-10-31 07:58] VITALS: BP 145/93; TEMP 98.9
--- NOTE | 2017-10-31 09:05 | PRG ---
DATE OF SERVICE: 10/31/2017 She is doing well, had no acute complaints. PHYSICAL EXAMINATION: VITAL SIGNS: Temperature 98.9, pulse 92, respirations 18, O2 sat 95%, blood pressure 145/93. HEENT: Unremarkable except for slight left facial droop. NECK: No JVD. LUNGS: Clear. CARDIAC: S1 and S2 regular. ABDOMEN: Soft. EXTREMITIES: No edema. ASSESSMENT: 1. Lung mass -- biopsy results still pending. 2. Stroke. PLAN: Awaiting results of bronchoscopy. The patient gave me her cell phone number and I will call h er. There is a conceivable chance that the bronchoscopy will be negative and she will require a CT n eedle biopsy at a later date.
[2017-10-31] MEDS: Lisinopril 5 MG TAB PO SCH (09:12)
[2017-10-31] MEDS: Aspirin 325 MG TAB PO SCH (09:13)
--- NOTE | 2017-11-01 06:07 | DIS ---
DATE OF ADMISSION: 10/27/2017 DATE OF DISCHARGE: 10/31/2017 DISCHARGE DIAGNOSES: 1. Cerebrovascular accident with right-sided weakness. 2. Hypercalcemia. 3. Left lung mass. 4. Diabetes mellitus. 5. Dyslipidemia. 6. Hypertension. 7. Occlusion of the left internal carotid artery. HISTORY: This patient is a 57-year-old female with a history of prior strokes who was having some al terations in mentation and possibly some increased difficulty with her right-sided weakness. She was brought to the hospital initially a couple of days prior and her workup at that time revealed hyperc alcemia with a right-sided possible hilar lung mass. On presentation at this time, the patient was n oted to have the hypercalcemia and concern for possible worsening of cerebrovascular accident. She h ad a CT and ultimately MRI of the brain which revealed a small area of acute infarct involving the le ft parietal and frontal lobes that was likely related to showering phenomenon peripheral arterial occ lusion. The patient had additional chronic ischemic small vessel disease consistent with vascular di sease. Subsequently, the patient had evaluation by Neurology. He felt the patient should be treated for her hypercalcemia. A followup carotid Doppler revealed complete occlusion of the left carotid a rtery. Vascular Surgery was consulted and felt that there was no surgical intervention possible for this patient given the complete occlusion of the artery. CT angiogram of the neck was obtained to fu rther evaluate carotids and confirm the complete occlusion. The patient's lung mass was initially to be biopsied through a percutaneous transthoracic biopsy; however, it was felt that this might be mor e amenable to bronchoscopic evaluation and Pulmonology was consulted. Subsequently, the patient did undergo a bronchoscopic biopsy of the lesion. She tolerated this well. Also, the patient's calcium improved as she was hydrated throughout her hospital stay and it normalized. She did have an elevate d PTH level. This is concerning for possibly being related to her lung mass. The patient was contin uing to work with physical therapy, up and ambulating the halls well. She felt like she was back to her baseline and could function normally at home. She was desirous of going home and it was felt mariza t she would be stable to do this. DISPOSITION: PHYSICAL EXAMINATION: VITAL SIGNS: On the day of discharge, temperature 98.9, pulse 92, respirations 18, O2 sat 95% on louann m air, BP 145/93. GENERAL: The patient was awake and alert, oriented and pleasant. HEART: Regular rate and rhythm without murmurs. LUNGS: Slightly diminished, but otherwise clear. ABDOMEN: Soft, nontender. EXTREMITIES: Warm and dry with significant clubbing of the fingertips. She is to be discharged to home. She is to have home health. She will continue with aspirin 81 mg e very day, atorvastatin 40 mg every day, gabapentin 300 mg at bedtime, lisinopril 10 mg every day, met formin 500 mg every day, Ventolin inhaler 1 puff b.i.d. p.r.n. She is to follow up with her PCP to have results of the biopsy and she should return to the emergency department should she have any problems prior to that time.
== END 2017-10-31 10:17 | disposition home health service (06) | DRG 65 ==
LOC: ERS 23:30 → 2SE 10-27 04:35 → OBSVTOIN 10-27 12:13
PROVIDERS: ADMIT Internal Medicine; ATTEND Internal Medicine
PROC: 0BDG8ZX Extraction of Left Upper Lung Lobe, Via Natural or Artificial Opening Endoscopic, Diagnostic (ICD-10-PCS; principal; 2017-10-30)
DX: I63.232 Cerebral infarction due to unspecified occlusion or stenosis of left carotid arteries (principal); G81.91 Hemiplegia, unspecified affecting right dominant side; E83.52 Hypercalcemia; R29.708 NIHSS score 8; R47.1 Dysarthria and anarthria; E11.51 Type 2 diabetes mellitus with diabetic peripheral angiopathy without gangrene; E11.649 Type 2 diabetes mellitus with hypoglycemia without coma; I10 Essential (primary) hypertension; J42 Unspecified chronic bronchitis; R91.8 Other nonspecific abnormal finding of lung field; F17.210 Nicotine dependence, cigarettes, uncomplicated; Z86.718 Personal history of other venous thrombosis and embolism; Z79.84 Long term (current) use of oral hypoglycemic drugs; Z88.6 Allergy status to analgesic agent
CPT/HCPCS: 36415; 36416; 51701; 70450; 70498; 70551; 71045; 76000; 80048; 80053; 80061; 80306; 80307; 81003; 82140; 82306; 82310; 82553; 83690; 83880; 83970; 84443; 84484; 85025; 85610; 85730; 88112; 88305; 93005; 93880; 94640; 94760; 96360; 96361; A4216; A4353; G8978-GP-CK; G8979-GP-CJ; G8987-GO-CI; G8988-GO-CI; G8989-GO-CI; G8996-GN-CJ; G8996-GN-CK; G8997-GN-CH; G8997-GN-CI; J0360; J2001; J2704; J3010

== ENCOUNTER 2017-11-06 13:28 | Outpatient (CLI) | payer MEDICARE, MEDICAID ==
--- NOTE | 2017-11-06 16:36 | PET ---
PET CT: 11/06/18 HISTORY: 57-year-old female with suspected lung cancer. Left lung mass on CT angiogram of 11/06/17. TECHNIQUE: PET scan with CT attenuation correction was performed from the base of the brain through the proximal thighs following the intravenous administration of 13 millicuries of 15-fluorodeoxyglucose in the le ft antecubital fossa. Imaging was performed after an uptake interval of 55 minutes. COMPARISON: None. CORRELATION: CTA neck of 10/27/17. FINDINGS: A 4.3 cm left hilar/perihilar mass is seen. There is intense FDG localization in the lateral 2 cm of this mass with an SUV of 19.3. The medial aspect has lower FDG uptake with SUV of 5.5. No hypermetabolic lymph nodes are seen in the neck, mediastinum, right hilar regions, bilateral axill carl regions, abdomen or pelvis. No hypermetabolic right sided lung nodules, liver, adrenal glands, or skeletal lesions are seen. There is physiologic activity in the GI and tracts and visualized portions of the brain. The CT scan used for attenuation correction demonstrates no evidence of pleural effusions or ascites. There is colonic diverticulosis. IMPRESSION: Hypermetabolic left hilar/perihilar mass consistent with malignancy. No evidence of distant metastase s. POS: [facility]
== END 2017-11-06 13:29 | disposition home or self-care (01) ==
LOC: PET 13:28
PROVIDERS: ATTEND Internal Medicine Critical Care Medicine
DX: C34.90 Malignant neoplasm of unspecified part of unspecified bronchus or lung (principal)
CPT/HCPCS: 78815; A9552

== ENCOUNTER 2017-12-04 08:47 | Day surgery (SDC) | payer MEDICARE, MEDICAID ==
[2017-11-16 13:10] VITALS: BMI 32.1
[2017-12-04 09:10] LABS: #Eosinphils 0.1 thou/uL (0.0-0.7); #Lymphocytes 1.9 thou/uL (1.20-3.40); #Monocytes 0.4 thou/uL (0.11-0.59); #Neutrophils 2.3 thou/uL (1.40-6.50); %Basophils 0.8 % (0.0-1.0); %Eosinophils 2.4 % (0.0-10.0); %Lymphocytes 39.6 % (21.0-51.0); %Monocytes 7.8 % (0.0-10.0); %Neutrophils 49.5 % (42.0-75.0); Hemoglobin 14.1 g/dL (12.0-16.0); Mean Corpuscular HGB CONC 35.7 g/dL (32.0-36.0); Mean Corpuscular Hemoglobin 29.4 pg (27.0-31.0); Mean Corpuscular Volume 82.4 fL (78.0-98.0); Mean Platelet Volume 8.3 fL (7.4-10.4); Platelet Count 199 thou/uL (130-400); RBC Distribution Width 12.3 % (11.5-14.5); White Blood Cell (WBC) Count 4.7 thou/uL (4.8-10.8)
[2017-12-04 09:16] LABS: PTT 28.9 SEC (22.9-36.1)
[2017-12-04] MEDS ORDERED: Midazolam HCl 2 mg/2 ml Vial ONE (10:16)
[2017-12-04] MEDS ORDERED: Sodium Bicarbonate 2.5 MEQ/5 ML VIAL ONE (10:16)
[2017-12-04] MEDS ORDERED: Fentanyl 100 MCG/2 ML VIAL ONE (10:17)
[2017-12-04] MEDS ORDERED: HYDROcodone/Acetaminophen 5/325 mg Tablet ONE (10:19)
--- NOTE | 2017-12-04 11:41 | RAD ---
TWO VIEW CHEST SERIES INSPIRATORY/EXPIRATORY VIEWS: Indication: Status post left lung biopsy. FINDINGS: Inspiratory and expiratory views reveal no evidence of significant pneumothorax. There is left perihi lar density related to patient's recent biopsied nodule. IMPRESSION: No significant post procedural pneumothorax. POS: [facility]
[2017-12-04 11:49] VITALS: BP 164/82; TEMP 96.8
--- NOTE | 2017-12-04 12:17 | CT ---
CT GUIDED LEFT LUNG MASS BIOPSY: HISTORY: Left lung mass. TECHNIQUE: After explaining the procedure and answering all questions, the patient was placed on the CT table in the left lateral decubitus position. Limited CT imaging was performed. A left posterior approach w as planned. A sterile technique, buffered local anesthesia, CT guidance, and a posterior intercostal approach were used to carefully advance a 19 gauge needle to the left hilar mass. Position was conf irmed with CT. A total of three 20 gauge core biopsy specimens were obtained and eventually submitte d to pathology for evaluation. The needle was removed. FINDINGS: Post procedure imaging showed a small amount of hemorrhage within the lung parenchyma immediately yamil rounding the biopsy site. No evidence of pneumothorax. The patient tolerated the procedure well and was returned to the holding area in good condition for further monitoring. IMPRESSION: Technically successful CT guided biopsy, left lung mass. Pathology is pending. POS: MELANIE
--- NOTE | 2017-12-04 13:03 | RAD ---
SINGLE VIEW OF THE CHEST: Comparison: 12-04-17 at 11:14 a.m. History: Two hours status post left lung biopsy. FINDINGS: Single view of the chest shows normal sized cardiomediastinal silhouette. There is no evidence of con solidation, pleural effusion, or pneumothorax. There is fullness in the left infrahilar region which represents the abnormality biopsied. IMPRESSION: No evidence of pneumothorax status post left lung mass biopsy. POS: [facility]
== END 2017-12-04 13:10 | disposition home or self-care (01) ==
LOC: CT 08:47
PROVIDERS: ATTEND Internal Medicine Critical Care Medicine
PROC: 0BBL3ZX Excision of Left Lung, Percutaneous Approach, Diagnostic (ICD-10-PCS; principal; 2017-12-04)
DX: C34.92 Malignant neoplasm of unspecified part of left bronchus or lung (principal); I10 Essential (primary) hypertension; E11.9 Type 2 diabetes mellitus without complications; E78.5 Hyperlipidemia, unspecified; Z87.891 Personal history of nicotine dependence; Z86.73 Personal history of transient ischemic attack (TIA), and cerebral infarction without residual deficits; Z88.5 Allergy status to narcotic agent
CPT/HCPCS: 32405; 36415; 71045; 77012; 85025; 85610; 85730; 88305; 88313; 88341; 88342; J2250; J3010

== ENCOUNTER 2017-12-10 12:11 | Emergency (ER) | payer MEDICARE, MEDICAID ==
[2017-12-10 13:11] LABS: #Eosinphils 0.1 thou/uL (0.0-0.7); #Lymphocytes 1.7 thou/uL (1.20-3.40); #Monocytes 0.4 thou/uL (0.11-0.59); #Neutrophils 2.5 thou/uL (1.40-6.50); %Basophils 0.6 % (0.0-1.0); %Eosinophils 1.7 % (0.0-10.0); %Lymphocytes 35.8 % (21.0-51.0); %Monocytes 8.6 % (0.0-10.0); %Neutrophils 53.4 % (42.0-75.0); Hemoglobin 13.8 g/dL (12.0-16.0); Mean Corpuscular HGB CONC 36.1 g/dL (32.0-36.0); Mean Corpuscular Hemoglobin 29.5 pg (27.0-31.0); Mean Corpuscular Volume 81.6 fL (78.0-98.0); Mean Platelet Volume 8.5 fL (7.4-10.4); Platelet Count 206 thou/uL (130-400); RBC Distribution Width 12.3 % (11.5-14.5); Red Blood Cell (RBC) Count 4.68 mill/uL (4.20-5.40); White Blood Cell (WBC) Count 4.7 thou/uL (4.8-10.8)
[2017-12-10 13:32] LABS: ALT (SGPT) 53 U/L (8-55); AST (SGOT) 28 U/L (5-34); Albumin 3.7 g/dL (3.5-5.0); Alkaline Phosphatase 69 U/L (40-150); Anion Gap 12 mmol/L (10-20); BUN (Urea Nitrogen) 12 mg/dL (9.8-20.1); Bilirubin, Total 0.5 mg/dL (0.2-1.2); CK (CPK) 51 U/L (29-168); Calc. Creatinine Clearance 0 mL/min (70-130); Calcium 10.9 mg/dL (7.8-10.44); Carbon Dioxide 23 mmol/L (22-29); Chloride 106 mmol/L (98-107); Estimated GFR-MDRD Greater than 90; Globulin 3.7 g/dL (2.4-3.5); Glucose 112 mg/dL (70-105); Lipase 39 U/L (8-78); Potassium 3.8 mmol/L (3.5-5.1); Protein, Total 7.4 g/dL (6.0-8.3); Sodium 137 mmol/L (136-145)
[2017-12-10 13:38] LABS: Troponin I Less than 0.010 ng/mL (< 0.028)
[2017-12-10] MEDS ORDERED: HYDROcodone/Acetaminophen 10/325 mg Tablet ONE (14:26)
--- NOTE | 2017-12-10 14:33 | CT ---
CT ANGIO CHEST WITH CONTRAST: Technique: Multiple contiguous axial images were obtained through the chest with IV enhancement [facility] pulmonary angio protocol with multiplanar reconstruction and 3D post processing. Indications: Cough, shortness of breath. Patient has known left lung mass and is post CT biopsy from 12-04-17. FINDINGS: The left perihilar lung mas is again seen and is unchanged in size and appearance when compared to 10-23-17. Both lungs are well expanded there is no evidence of pneumothorax or effusion. No evidence of a cute infiltrate. The pulmonary arteries show adequate enhancement. No evidence of pulmonary embolus identified. Slight rib deformity is seen posteriorly involving the posterior left 11th and 12th ribs. These are s table from 10-23-17 exam and probably represent old fractures sites. IMPRESSION: 1. Left perihilar lung mass is unchanged. 2. No evidence of acute lung process. 3. No evidence of pulmonary embolus. POS: [facility]
[2017-12-10] MEDS ORDERED: ISOVUE-370 76%-LOCM 1 ML ONE (14:40)
== END 2017-12-10 14:25 | disposition home or self-care (01) ==
LOC: ERS 12:11
DX: G89.18 Other acute postprocedural pain (principal); M54.9 Dorsalgia, unspecified; E11.9 Type 2 diabetes mellitus without complications; I10 Essential (primary) hypertension; Z87.891 Personal history of nicotine dependence; Z79.899 Other long term (current) drug therapy; Z79.84 Long term (current) use of oral hypoglycemic drugs
CPT/HCPCS: 36415; 71275; 80053; 82553; 83690; 83880; 84484; 85025; 93005; 99406

== ENCOUNTER → 2017-12-26 | Day surgery (SDC) | payer MEDICARE, MEDICAID ==
--- NOTE | 2017-12-25 12:08 | HP ---
HISTORY: Opal Piña, 57-year-old female with left lung adenocarcinoma, needs MediPort right subcla vian vein for chemotherapy access and planned radiation therapy, followed by Dr. Bell and oncologi , Dr. Lawrence. Stroke in 2012 with left hemiparesis, stroke 2 to 3 weeks or stroke earlier this ye ar, undergoing physical therapy. Smoked 1 pack per day until tobacco cessation four weeks ago. CT-g uided biopsy reveals adenocarcinoma. PAST MEDICAL HISTORY: Diabetes mellitus noninsulin dependent, elevated cholesterol, hypertension. PAST SURGICAL HISTORY: Left carotid endarterectomy, DVT in 2015. Partial hysterectomy in 2005. FAMILY HISTORY: Father has a history of cancer of unknown type, history of diabetes and hypertension . REVIEW OF SYSTEMS: Noncontributory. GYNECOLOGIC HISTORY: Menarche 2013, menopause 2005; 23 years of age first . MEDICATIONS: Ellipta 62.5 mcg inhalation powder, aspirin 81 mg a day, gabapentin 300 mg at bedtime, lisinopril 10 a day, metformin 500 mg a day, Ventolin inhaler. ALLERGIES: CODEINE, pruritus. ALCOHOL: Rarely. PHYSICAL EXAMINATION: VITAL SIGNS: Weight 172 pounds, 83, 191/89, 81, 97.2 degrees. HEENT: Remarkable. LUNGS: Clear to auscultation. ASSESSMENT: Left lung adenocarcinoma. PLAN: MediPort right subclavian vein. Risks and benefits discussed.
[2017-12-25 13:01] VITALS: BMI 29.5
[~2017-12-26] MED LIST: Bupivacaine HCl 0.5%/Epinephrine 1:200,000/PF 30 ml Vial ONE; CEFAZOLIN/Water 2 GM/20 ML SYRINGE ONE; Fentanyl 100 MCG/2 ML VIAL ONE; Lidocaine 2% Jelly 5 ML TUBE ONE; Lidocaine 2% w/Epinephrine 1:200K 20 ML VIAL ONE; Midazolam HCl 2 mg/2 ml Vial ONE; PROPOFOL 200 MG/20 ML VIAL ONE; Propofol 500 MG/50 ML VIAL ONE
--- NOTE | 2017-12-26 09:41 | RAD ---
CHEST 1 VIEW: Date: 12/26/17 HISTORY: MediPort insertion. FINDINGS: Right-sided MediPort catheter with distal tip over the superior vena cava. No pneumothorax. There is a left hilar mass. Atherosclerosis of aorta is noted. Normal cardiac silhouette. No significant pleur al fluid. IMPRESSION: 1. Right-sided MediPort catheter placement. No pneumothorax. 2. Left hilar mass. POS: [facility]
--- NOTE | 2017-12-26 11:38 | OP ---
DATE OF OPERATION: 12/26/2017 PREOPERATIVE DIAGNOSIS: Left lung adenocarcinoma. POSTOPERATIVE DIAGNOSIS: Left lung adenocarcinoma. PROCEDURE: Right subclavian vein low profile MediPort. SURGEON: Jason Victor M.D. ANESTHESIA: TIVA. Local 0.5% Marcaine with epinephrine, 30 mL, mixed with 2% Xylocaine, 10 mL. Fluoroscopy used. PROCEDURE: The patient was taken to the operating room under intravenous sedation, neck and chest pr epared with ChloraPrep, draped in routine fashion. Local anesthetic infiltrated in the skin and subc utaneous tissue about the operative site. Infraclavicular approach used to cannulate the right subcl rebeca vein obtaining good return of venous blood. J-wire threaded, trocar catheter removed. Skin in cised and enlarged sharply to accommodate the MediPort, carried down skin and subcutaneous tissue and subcutaneous pocket dissected free with blunt and sharp dissection using cautery for hemostasis. Di lator and pull-away sheath placed over the J-wire into the subclavian vein and dilator and J-wire rem vinay. Catheter placed through the pull-away sheath and fluoroscopic images revealed good placement o f the tip of the catheter as the catheter connected to the MediPort and the MediPort secured to the s ubcutaneous tissues with interrupted sutures of 3-0 Prolene and subcutaneous tissues approximated wit h 3-0 Monocryl, skin with subdermal 4-0 Monocryl and DermaGlue applied. Femur needle used to access the MediPort aspirating blood, flushed with heparinized saline solution. Fluoroscopic images reveale d good line placement and MediPort placement.
--- NOTE | 2018-03-18 16:56 | EKG ---
Test Reason : PREOP Blood Pressure : / mmHG Vent. Rate : 072 BPM Atrial Rate : 072 BPM P-R Int : 150 ms QRS Dur : 086 ms QT Int : 396 ms P-R-T Axes : 069 068 077 degrees QTc Int : 433 ms Normal sinus rhythm Normal ECG Confirmed by TERA DE SOUZA M.D. ([id number]) on 03/18/2018 4:55:46 PM Referred By: EMILY Confirmed By:TERA DE SOUZA M.D.
== END ==
LOC: SDC 05:37
PROVIDERS: ATTEND Specialist
PROC: 05H533Z Insertion of Infusion Device into Right Subclavian Vein, Percutaneous Approach (ICD-10-PCS; principal; 2017-12-26)
DX: C34.92 Malignant neoplasm of unspecified part of left bronchus or lung (principal); E11.9 Type 2 diabetes mellitus without complications; I10 Essential (primary) hypertension; E78.00 Pure hypercholesterolemia, unspecified; Z88.5 Allergy status to narcotic agent; Z79.82 Long term (current) use of aspirin; Z79.84 Long term (current) use of oral hypoglycemic drugs; Z79.899 Other long term (current) drug therapy
CPT/HCPCS: 36561; 71045; 93005; C1788; 93010; J0670; J1642; J2250; J2704; J3010

== ENCOUNTER 2018-02-07 11:10 | Observation (INO) | payer MEDICARE, MEDICAID ==
[2018-02-07] MEDS ORDERED: ISOVUE-370 76%-LOCM 1 ML ONE (11:14)
--- NOTE | 2018-02-07 11:27 | CT ---
NONCONTRAST HEAD CT: Date: 02/07/18 COMPARISON: 10/27/17. HISTORY: Stroke alert. Left-sided weakness, starting at 0700 hours. History of breast cancer. TECHNIQUE: A noncontrast head CT is performed from the skull base to the skull vertex. FINDINGS: There is evidence of malacic change involving the right frontal lobe and posterolateral left frontal lobe. Remainder of the cerebrum demonstrates preservation of cortical alas-white matter differentiati on. No evidence of hydrocephalus. Remote lacunar infarct involving the left lentiform nucleus. Chroni c small vessel ischemic changes of the white matter identified. Calvarium is intact. Adequate aeration of the sinuses and mastoid air cells. IMPRESSION: Areas of malacia in the right frontal lobe and left frontal lobe are noted. The right frontal lobe ar ea of malacia is unchanged. The findings in the left frontal lobe have developed since the previous e xamination. Chronic small vessel ischemic changes of the white matter. No acute intracranial process. Results of study discussed with Dr. Mcnamara on 02/07/18 at 1122 hours. CODE CR. POS: [facility]
[2018-02-07 11:32] LABS: #Lymphocytes 0.5 thou/uL (1.20-3.40); #Monocytes 0.3 thou/uL (0.11-0.59); %Basophils 0.1 % (0.0-1.0); %Eosinophils 0.3 % (0.0-10.0); %Lymphocytes 11.1 % (21.0-51.0); %Monocytes 6.6 % (0.0-10.0); %Neutrophils 81.9 % (42.0-75.0); Mean Corpuscular HGB CONC 34.4 g/dL (32.0-36.0); Mean Corpuscular Hemoglobin 28.8 pg (27.0-31.0); Mean Corpuscular Volume 83.7 fL (78.0-98.0); Mean Platelet Volume 8.7 fL (7.4-10.4); Platelet Count 131 thou/uL (130-400); RBC Distribution Width 15.3 % (11.5-14.5); Red Blood Cell (RBC) Count 3.83 mill/uL (4.20-5.40); White Blood Cell (WBC) Count 4.9 thou/uL (4.8-10.8)
[2018-02-07 11:37] LABS: Prothrombin Time 13.2 SEC (12.0-14.7)
[2018-02-07 11:39] LABS: PTT 22.1 SEC (22.9-36.1)
[2018-02-07 11:55] LABS: CKMB 1.3 ng/mL (0-6.6); Troponin I Less than 0.010 ng/mL (< 0.028)
[2018-02-07 12:00] LABS: ALT (SGPT) 22 U/L (8-55); AST (SGOT) 13 U/L (5-34); Albumin 3.9 g/dL (3.5-5.0); Alkaline Phosphatase 62 U/L (40-150); Anion Gap 9 mmol/L (10-20); BUN (Urea Nitrogen) 12 mg/dL (9.8-20.1); Bilirubin, Total 0.6 mg/dL (0.2-1.2); CK (CPK) 45 U/L (29-168); Calc. Creatinine Clearance 0 mL/min (70-130); Calcium 10.6 mg/dL (7.8-10.44); Carbon Dioxide 26 mmol/L (22-29); Chloride 107 mmol/L (98-107); Estimated GFR-MDRD Greater than 90; Globulin 3.4 g/dL (2.4-3.5); Glucose 88 mg/dL (70-105); Potassium 4.2 mmol/L (3.5-5.1); Protein, Total 7.3 g/dL (6.0-8.3); Sodium 138 mmol/L (136-145)
--- NOTE | 2018-02-07 12:01 | CT ---
CT ANGIOGRAM OF THE HEAD CT ANGIOGRAM OF THE NECK: HISTORY: Left-sided weakness, starting at 7:00. Stroke alert. History of breast cancer. COMPARISON: None. TECHNIQUE: A CT angiogram of the head and neck is performed in the axial plane. Three-dimensional reformatted i mages are submitted for interpretation. FINDINGS: Postcontrast head CT demonstrates preservation of cortical alas-white matter differentiation with the exception of the left frontal and right frontal lobe which have also been described on the noncontra st head CT. Adequate aeration of the visualized sinuses and mastoid air cells. Aerodigestive tract is patent. No mucosal abnormality. Midline fatty raphae of the tongue is preser hitesh. Epiglottis is normal caliber. Preepiglottic fat is preserved. There is no prevertebral soft tissue swelling. Parotid and submandibular glands are unremarkable. Symmetric attenuation of the sternocleidomastoid muscles. No evidence of lymphadenopathy by size criteria. Cervical spine vertebral body height is maintained. No mild fracture. There is mild degenerative ch mohinder throughout the cervical spine with varying degrees of central canal stenosis and neural foramina l narrowing. Upper mediastinum is unremarkable. There is an incompletely evaluated left hilar mass measuring 1.[address] ANGIOGRAM: There is a common origin to the left and right carotid artery. The common origin is unremarkable. RIGHT CAROTID: The right common carotid artery, carotid bifurcation, and internal carotid artery have appropriate en hancement and luminal diameter. LEFT CAROTID: There is adequate contrast opacification and luminal diameter of the left common carotid artery. Lef t carotid bifurcation is unremarkable. There is occlusion of the entire left internal carotid artery which may be chronic. Surgical clips due to previous endarterectomy are suggested. Bilateral subclavian arteries are unremarkable. Both cervical vertebra arteries appear to be patent throughout the course of the neck. The right vertebral artery is dominant. CT ANGIOGRAM: There is atherosclerosis with mild to moderate narrowing of the right cavernous segment and right par aclinoid segment. Absence of contrast in the left intracranial internal carotid artery. ANTERIOR CIRCULATION: There is irregular appearance with mild enhancement of the left A1 and M1 segments, likely due to col lateral flow via what is likely the ophthalmic artery. The right A2 segment is unremarkable. The ri ght M1 segment is absent. There is still evidence of some vascular flow in the right MCA distributio n. POSTERIOR CIRCULATION: Both PICA artery origins appear to be unremarkable. Both vertebral arteries supply a normal-appearin g basilar artery. The left and right P1 segments have symmetric enhancement and luminal diameter. IMPRESSION: 1. Likely chronic occlusion of the left internal carotid artery. 2. There is absence of opacification of the right M1 segment suggesting occlusion. There is still e vidence of some vascular flow in the right MCA distribution. 3. Spiculated left perihilar mass. 4. Results of the study were discussed with Dr. Mcnamara 02/07/18 at 11:39 a.m. CODE DAVID POS: [facility]
[2018-02-07 14:11] LABS: Bilirubin Negative (Negative); Blood, Urine Negative (Negative); Clarity CLEAR (Clear); Glucose, Urine (Dipstick) Negative (Negative); Leukocyte Negative (Negative); Nitrite Negative (Negative); Protein, Urine (Dipstick) Negative (Neg-Trace)
[2018-02-07] MEDS ORDERED: Acetaminophen 325 MG TAB PO PRN (16:42)
[2018-02-07] MEDS ORDERED: Ondansetron HCl/PF 4 MG/2 ML Vial IVP PRN (16:42)
[2018-02-07] MEDS ORDERED: Ondansetron ODT 4 MG TAB SL PRN (16:42)
[2018-02-07] MEDS ORDERED: Dextrose 50% Abboject 50 ML SYRINGE SLOW IVP PRN (17:05)
[2018-02-07] MEDS ORDERED: Dextrose 5% in Water 1,000 ML IV PRN (17:05)
[2018-02-07 17:23] VITALS: BMI 31.7
[2018-02-07] MEDS ORDERED: Gabapentin 300 MG CAP PO SCH (21:15)
[2018-02-07] MEDS ORDERED: Promethazine HCl 6.25 MG/5 ML Syrup PO SCH (21:15)
[2018-02-07] MEDS ORDERED: Promethazine HCl 6.25 MG/5 ML Syrup PO PRN (21:43)
[2018-02-07] MEDS ORDERED: Dextromethorphan Polistirex 30 MG/5 ML (89 ML BOTTLE) PO PRN (21:45)
[2018-02-07] MEDS ORDERED: Dextromethorphan Polistirex 30 MG/5 ML (89 ML BOTTLE) PO SCH (21:45)
--- NOTE | 2018-02-07 22:54 | HP ---
CHIEF COMPLAINT: Left-sided weakness. HISTORY OF PRESENT ILLNESS: The patient is a 57-year-old female with a lung cancer, undergoing chemo therapy and radiation therapy treatment. The patient got up this morning and walked her dog and star kenisha experiencing some weakness and numbness in her left side. Affecting both her arm and her leg. S he does not believe it involved her face at all and she is unaware of any changes in her speech patlynne rn. When she got back to her home, she went to her kitchen and tried to make a cup of coffee and sta kenisha that she was swaying back and forth, and her sister was concerned she was having a stroke and mad e her sit down when she did her symptoms resolved. She went on to radiation treatment as scheduled t his morning. She told her with a physician there about it and she was referred to the Emergency Depa rtment. In the Emergency Department, the patient appeared to be essentially resolved of all of her s ymptoms and at her baseline. Presently, the patient believes she has no further symptoms. Of note, the patient has history of peripheral vascular disease with apparent aortobifemoral bypasses and she also has a history of left carotid stenosis with complete occlusion based on workup that was done her e in October, at which time the patient was admitted for stroke affecting her right side. At that time, MRI findings did indicate that there was some new area of stroke. The patient has also had a PET sc an, which did not reveal any metastases other than the primary lung tumor. She also had an MRI of th e brain in October, which did not reveal any evidence of metastases. It did show a small area of infarc t involving the left parietal and frontal lobes concerning for a "showering phenomenon." Also, durin g her October admission, the patient had significant hypercalcemia with elevated PTH presumed to be rela kenisha to the lung cancer. REVIEW OF SYSTEMS: Notable for some chronic diarrhea since she has been on chemotherapy. Otherwise, a 10-system review was negative except for those things mentioned in the history of present illness. PAST MEDICAL HISTORY: Notable for the lung cancer without evidence of metastases on PET scan, histor y of diabetes, hypertension, peripheral vascular disease, and left carotid stenosis with complete occ lusion of the left carotid and the recent CVA as described above. PAST SURGICAL HISTORY: Left carotid endarterectomy, partial hysterectomy, and aortobifemoral bypass. FAMILY HISTORY: Reviewed and noncontributory. SOCIAL HISTORY: Social drinker. Prior history of smoking and marijuana use. The patient is a FULL CODE. ALLERGIES: CODEINE. CURRENT MEDICATIONS: Gabapentin 300 mg 3 p.o. at bedtime, Ventolin inhaler b.i.d. p.r.n., lisinopril 10 mg q. day, metformin 500 mg q. day, [place] t.i.d. p.r.n., aspirin 81 mg q. day, and Lipitor 40 mg at bedtime. PHYSICAL EXAMINATION: VITAL SIGNS: BP was 148/91, pulse 71, respirations 24, temperature 98.6, and O2 sat 100% on room air . GENERAL APPEARANCE: Age appropriate female, very pleasant, cooperative. She is in no distress. HEENT: She has some arcus senilis. No OP lesions, missing a number of teeth. NECK: Supple and symmetric, trachea is midline. CARDIOVASCULAR: Regular rate and rhythm without murmurs, gallops, or rubs. LUNGS: Clear to auscultation bilaterally with good chest wall expansion and air exchange. ABDOMEN: Soft, nontender, nondistended, positive bowel sounds. No organomegaly. Well-healed midlin e abdominal surgical incisional scar. EXTREMITIES: Warm and dry without edema. NEUROLOGIC: Patient's cranial nerves appear to be intact. She is awake, alert, and oriented. She h as 5/5 strength in all extremities with no ataxia noted. LABORATORY DATA: White count 4.9, hemoglobin 11.0, platelets 131. INR is 1.0, PTT 22.1. Sodium 138 , potassium 4.2, chloride 107, CO2 of 26, BUN 12, creatinine 0.73, glucose 88, calcium 10.6, AST 13, ALT 22, troponin less than 10. Albumin is 3.9. Urinalysis is negative. CT brain shows areas of mal acia in the right frontal lobe and left frontal lobe. The right frontal lobe area malacia is unchang ed. Findings of the left frontal lobe have developed since the previous exam. Chronic small vessel ischemic changes of the white matter. A CT angio shows likely chronic occlusion of the left internal carotid artery, absence of opacification of the right M1 segment, suggesting occlusion with some viola dence of vascular flow in the right MCA distribution. The spiculated hilar mass is also noted. IMPRESSION AND PLAN: 1. Transient ischemic attack. The patient had significant left-sided weakness, which completely res olved on its own. The only concerning factor in the workup thus far as the fact that she is showing some frontal malacia bilaterally, which is new from her previous exams. Unclear what the etiology of this is unless it is ischemic in nature. The patient previously had a full workup when she had her stroke symptoms back in October. At that time, she had a complete occlusion of the left internal caroti d artery without significant stenosis on the right. However, the patient seems to be a purely depend ent on the right carotid flow and symptoms that would impact that would likely affect the left side o f the brain prior to substantially affecting the right unless this was more of a small vessel event. We will recommend increasing her aspirin from 81 to 325 and consult Neurology. Keep the patient in observation for now. 2. Diabetes mellitus. We will continue with her metformin dose and monitor blood sugars. 3. Hypertension. Continue with the lisinopril. 4. Hyperlipidemia. Continue Lipitor. 5. Diabetic neuropathy. Continue gabapentin 900 mg at bedtime. 6. Pulmonary: The patient appears to have some underlying smoking-related chronic obstructive pulmo nary disease. We will continue with her bronchodilators as needed.
[2018-02-08] MEDS: Aspirin 325 MG TAB PO SCH (09:08)
--- NOTE | 2018-02-08 12:51 | PDOC.PN ---
- Subjective Encounter Start Date: 02/08/18 Encounter Start Time: 10:35 Subjective: has trouble finding and spelling words this am -: chronically weak on right side -: is sitting on bed, not in distress - Objective Resuscitation Status: Resuscitation Status FULL:Full Resuscitation MAR Reviewed: Yes Vital Signs & Weight: Vital Signs (12 hours) Temp Pulse Resp BP Pulse Ox 02/08/18 11:34 98.7 F 91 18 141/80 H 92 L 02/08/18 07:56 98.3 F 85 18 161/93 H 94 L 02/08/18 04:00 98.1 F 82 16 158/87 H 99 Weight Weight 173 lb 8 oz I&O: 02/07/18 02/08/18 02/09/18 06:59 06:59 06:59 Intake Total 240 50 Balance 240 50 Result Diagrams: 02/07/18 11:12 02/07/18 11:12 Additional Labs: Accuchecks 02/08/18 02/08/18 02/07/18 10:15 06:10 20:43 POC Glucose 152 H 114 H 226 H 02/07/18 02/07/18 18:06 14:16 POC Glucose 188 H 106 Phys Exam - Physical Examination HEENT: PERRLA, moist MMs Neck: no JVD, supple Respiratory: no wheezing, no rales rhonchi+ Cardiovascular: RRR, no significant murmur Gastrointestinal: soft, non-tender, positive bowel sounds Musculoskeletal: no edema, pulses present right hemiparesis with strength of 3-4/5 Dx/Plan (1) CVA (cerebral vascular accident) Code(s): I63.9 - CEREBRAL INFARCTION, UNSPECIFIED Status: Acute Qualifiers: CVA mechanism: unspecified Qualified Code(s): I63.9 - Cerebral infarction, unspecified Comment: b/l frontal lobe infarcts, likely right is new/subacute (2) Lung cancer Code(s): C34.90 - MALIGNANT NEOPLASM OF UNSP PART OF UNSP BRONCHUS OR LUNG Status: Chronic Qualifiers: Laterality: left Comment: on chemo/radiation (3) PVD (peripheral vascular disease) Code(s): I73.9 - PERIPHERAL VASCULAR DISEASE, UNSPECIFIED Status: Chronic Comment: h/o carotid disease, aortobifemoral bypass (4) DM type 2 (diabetes mellitus, type 2) Status: Chronic Qualifiers: Diabetes mellitus prison insulin use: without prison use Diabetes mellitus complication status: with circulatory complication (5) Dyslipidemia Code(s): E78.5 - HYPERLIPIDEMIA, UNSPECIFIED Status: Chronic (6) HTN (hypertension) Code(s): I10 - ESSENTIAL (PRIMARY) HYPERTENSION Status: Chronic Qualifiers: Hypertension type: essential hypertension Qualified Code(s): I10 - Essential (primary) hypertension (7) Occlusion of left internal carotid artery Code(s): I65.22 - OCCLUSION AND STENOSIS OF LEFT CAROTID ARTERY Status: Chronic - Plan is on asp and lipitor -: hold metformin due to contrast -: continue lisinopril -: has severe clubbing -: await neurology opinion, MRI with contrast * . Review of Systems - Medications/Allergies Allergies/Adverse Reactions: Allergies Allergy/AdvReac Type Severity Reaction Status Date / Time codeine Allergy Verified 02/07/18 17:13 Medications: Current Medications Aspirin (Aspirin) 325 mg PO DAILY [facility] Last Admin: 02/08/18 09:08 Dose: 325 mg Dextromethorphan Polistirix (Delsym) 15 mg PO HSPRN PRN PRN Reason: Cough Dextrose/Water (Dextrose 50%) 25 gm SLOW IVP PRN PRN PRN Reason: Hypoglycemia Glucagon (Glucagon) 1 mg IM PRN PRN PRN Reason: Hypoglycemia Dextrose/Water (D5w) 1,000 mls @ 0 mls/hr IV .Q0M PRN PRN Reason: Hypoglycemia Insulin Human Lispro (Humalog) 0 units SC .MILD SLIDING SCALE PRN PRN Reason: Mild Correctional Scale Promethazine HCl (Phenergan 6.25 Mg/5ml Syrup) 6.25 mg PO HSPRN PRN PRN Reason: Cough Sodium Chloride (Flush - Normal Saline) 10 ml IVF Q12HR [facility] Last Admin: 02/08/18 09:08 Dose: 10 ml Sodium Chloride (Flush - Normal Saline) 10 ml IVF PRN PRN PRN Reason: Saline Flush
[2018-02-08] MEDS ORDERED: PROVENTIL INHALER 6.7 G (200 INHALATIONS) INH PRN (12:54)
[2018-02-08] MEDS: HumaLOG 300 UNITS/3 ML VIAL SC PRN (13:54)
[2018-02-08] MEDS ORDERED: Enoxaparin Sodium 40 MG/0.4 ML SYRINGE SC SCH (16:30)
[2018-02-08] MEDS ORDERED: Gabapentin 300 MG CAP PO SCH (21:00)
[2018-02-09 08:30] VITALS: TEMP 97.4
[2018-02-09] MEDS: Aspirin 325 MG TAB PO SCH (08:52)
[2018-02-09] MEDS ORDERED: Atorvastatin Calcium 40 MG TAB PO SCH (09:00)
[2018-02-09] MEDS ORDERED: Enoxaparin Sodium 40 MG/0.4 ML SYRINGE SC SCH (09:00)
[2018-02-09] MEDS ORDERED: Calcium Carbonate 600 MG TAB PO SCH (09:00)
[2018-02-09] MEDS ORDERED: Lisinopril 10 MG TAB PO SCH (09:00)
--- NOTE | 2018-02-09 12:53 | MRI ---
MRI OF THE BRAIN WITHOUT AND WITH CONTRAST: COMPARISON: 10/27/17. HISTORY: History of stroke with left-sided weakness that has resolved. TECHNIQUE: Multiplanar, multisequence MR images were obtained of the brain without and with IV contrast. FINDINGS: There are multiple scattered foci of high FLAIR signal in the subcortical and periventricular white m atter, likely secondary to small-vessel ischemic disease. There are multifocal areas of restricted d iffusion associated with high FLAIR signal in the left subcortical and periventricular white matter, more prominent in the parietal region. The largest area measures 10 mm in size. When compared to th e prior examination, the areas of FLAIR signal and restricted diffusion are in a slightly different l ocation than on the prior examination and the areas of high FLAIR signal have increased in number com pared to the prior examination. These multifocal areas of restricted diffusion likely represent new multifocal infarcts. No restricted diffusion is seen in the right cerebral hemisphere. There is no evidence of hydrocephalus, intracranial hemorrhage, or extraaxial fluid collection. The left internal carotid artery flow void is abnormal. The right internal carotid artery flow void is p resent as well as the vertebral artery flow voids. The calvarium and overlying soft tissues are unremarkable. The visualized paranasal sinuses and mast oid air cells are well aerated. IMPRESSION: New multifocal infarctions in the left periventricular white matter. As noted previously, the patien t has an occluded left internal carotid artery and this may represent an area to an embolic phenomeno n. POS: [facility]
--- NOTE | 2018-02-09 13:04 | PDOC.PN ---
- Subjective Encounter Start Date: 02/09/18 Encounter Start Time: 09:20 Subjective: no new complaints, is amb in room -: is wanting to go home - Objective Resuscitation Status: Resuscitation Status FULL:Full Resuscitation MAR Reviewed: Yes Vital Signs & Weight: Vital Signs (12 hours) Temp Pulse Resp BP BP Pulse Ox 02/09/18 10:10 100 195/104 H 02/09/18 08:53 198/95 H 02/09/18 08:00 97.4 F L 93 18 198/95 H 98 02/09/18 07:19 79 12 02/09/18 03:57 98.0 F 94 16 182/83 H 98 02/09/18 01:51 97 Weight Weight 173 lb 8 oz I&O: 02/08/18 02/09/18 02/10/18 06:59 06:59 06:59 Intake Total 240 1450 240 Balance 240 1450 240 Result Diagrams: 02/07/18 11:12 02/07/18 11:12 Additional Labs: Accuchecks 02/09/18 02/09/18 02/08/18 10:57 05:46 20:44 POC Glucose 186 H 140 H 142 H 02/08/18 16:26 POC Glucose 136 H Phys Exam - Physical Examination HEENT: PERRLA, moist MMs Neck: no JVD, supple Respiratory: no wheezing, no rales Cardiovascular: RRR, no significant murmur Gastrointestinal: soft, non-tender, positive bowel sounds Musculoskeletal: no edema, pulses present Neurological: non-focal, moves all 4 limbs Psychiatric: normal affect, A&O x 3 Dx/Plan (1) CVA (cerebral vascular accident) Code(s): I63.9 - CEREBRAL INFARCTION, UNSPECIFIED Status: Acute Qualifiers: CVA mechanism: unspecified Qualified Code(s): I63.9 - Cerebral infarction, unspecified Comment: has periventricular ac infarcts, h/o b/l frontal lobe infarcts (2) Lung cancer Code(s): C34.90 - MALIGNANT NEOPLASM OF UNSP PART OF UNSP BRONCHUS OR LUNG Status: Chronic Qualifiers: Laterality: left Comment: on chemo/radiation (3) PVD (peripheral vascular disease) Code(s): I73.9 - PERIPHERAL VASCULAR DISEASE, UNSPECIFIED Status: Chronic Comment: h/o carotid disease, aortobifemoral bypass (4) DM type 2 (diabetes mellitus, type 2) Status: Chronic Qualifiers: Diabetes mellitus intermission coordinator insulin use: without intermission coordinator use Diabetes mellitus complication status: with circulatory complication (5) Dyslipidemia Code(s): E78.5 - HYPERLIPIDEMIA, UNSPECIFIED Status: Chronic (6) HTN (hypertension) Code(s): I10 - ESSENTIAL (PRIMARY) HYPERTENSION Status: Chronic Qualifiers: Hypertension type: essential hypertension Qualified Code(s): I10 - Essential (primary) hypertension (7) Occlusion of left internal carotid artery Code(s): I65.22 - OCCLUSION AND STENOSIS OF LEFT CAROTID ARTERY Status: Chronic - Plan MRI results noted -: is on asp and lipitor -: has occluded left carotids from many years -: dc pt home * . Review of Systems - Medications/Allergies Allergies/Adverse Reactions: Allergies Allergy/AdvReac Type Severity Reaction Status Date / Time codeine Allergy Verified 02/07/18 17:13 Medications: Current Medications Albuterol Sulfate (Proventil Hfa) 2 puff INH BID PRN PRN Reason: Wheezing or Cough Albuterol/Ipratropium (Duoneb) 3 ml NEB [id number] Last Admin: 02/09/18 07:19 Dose: 3 ml Aspirin (Aspirin) 325 mg PO DAILY [facility] Last Admin: 02/09/18 08:52 Dose: 325 mg Atorvastatin Calcium (Lipitor) 40 mg PO DAILY [facility] Last Admin: 02/09/18 08:53 Dose: 40 mg Calcium Carbonate (Caltrate) 600 mg PO DAILY [facility] Last Admin: 02/09/18 08:52 Dose: 600 mg Dextromethorphan Polistirix (Delsym) 15 mg PO HSPRN PRN PRN Reason: Cough Last Admin: 02/08/18 21:21 Dose: 15 mg Dextrose/Water (Dextrose 50%) 25 gm SLOW IVP PRN PRN PRN Reason: Hypoglycemia Enoxaparin Sodium (Lovenox) 40 mg SC 0900 [facility] Last Admin: 02/09/18 08:52 Dose: 40 mg Gabapentin (Neurontin) 900 mg PO HS [facility] Last Admin: 02/08/18 21:20 Dose: 900 mg Glucagon (Glucagon) 1 mg IM PRN PRN PRN Reason: Hypoglycemia Dextrose/Water (D5w) 1,000 mls @ 0 mls/hr IV .Q0M PRN PRN Reason: Hypoglycemia Insulin Human Lispro (Humalog) 0 units SC .MILD SLIDING SCALE PRN PRN Reason: Mild Correctional Scale Last Admin: 02/08/18 13:54 Dose: 2 unit Lisinopril (Zestril) 10 mg PO DAILY [facility] Last Admin: 02/09/18 08:53 Dose: 10 mg Promethazine HCl (Phenergan 6.25 Mg/5ml Syrup) 6.25 mg PO HSPRN PRN PRN Reason: Cough Last Admin: 02/08/18 21:21 Dose: 6.25 mg Sodium Chloride (Flush - Normal Saline) 10 ml IVF Q12HR [facility] Last Admin: 02/09/18 08:51 Dose: 10 ml Sodium Chloride (Flush - Normal Saline) 10 ml IVF PRN PRN PRN Reason: Saline Flush
[2018-02-09 13:05] VITALS: BP 185/99
[2018-02-09] MEDS: HumaLOG 300 UNITS/3 ML VIAL SC PRN (14:08)
--- NOTE | 2018-02-09 20:07 | DIS ---
DATE OF ADMISSION: 02/07/2018 DATE OF DISCHARGE: 02/09/2018 DISCHARGE DISPOSITION: To home. PRIMARY DISCHARGE DIAGNOSES: 1. Acute cerebrovascular accident in the periventricular area. 2. History of bilateral frontal lobe infarcts 3. History of lung cancer on chemo and radiation therapy. 4. Chronic occlusion of left carotid artery. 5. Hypertension. 6. Dyslipidemia. 7. Diabetes mellitus type 2. 8. Peripheral vascular disease with prior history of aortobifemoral bypass. PROCEDURES DONE DURING HOSPITALIZATION: CT angio of the brain done showed likely chronic occlusion o f left internal carotid artery. There was absence of opacification of the right M1 segment, suggesti ng occlusion. There is still evidence of some vascular flow in the right MCA distribution, spiculate d left perihilar mass was seen. CT brain without contrast on admission showed areas of malacia in th e right frontal lobe and left frontal lobe. Right frontal lobe malacia was unchanged. The findings in the left frontal lobe has developed since the previous examination. Chronic small vessel ischemic changes of the white matter. No acute intracranial process was seen. MRI with and without contrast done showed new multifocal infarcts in the left periventricular white matter, likely this is due to an area of an embolic phenomenon due to chronic occlusion of left internal carotid artery. H&H 11 an d 32, platelet count 131, BUN 12, creatinine 0.7. DISCHARGE MEDICATIONS: Aspirin 325 mg p.o. daily, Lipitor 40 mg p.o. daily, calcium carbonate 600 mg p.o. daily, gabapentin 900 mg p.o. at bedtime, lisinopril 10 mg daily, metformin 500 mg p.o. daily t o start from day after due to contrast given with MRI, Ventolin inhaler twice daily p.r.n. ALLERGIES: CODEINE. INPATIENT CONSULTS: Dr. Christianson for Neurology. BRIEF COURSE DURING HOSPITALIZATION: Patient initially got admitted on 02/07/2018 with complaints of left-sided weakness. She has known history of bilateral frontal lobe infarcts in the past. Patient also has chronic occlusion of left carotid artery. In view of this, she was initially placed under observation for TIA. The patient has history of lung cancer and is on chemo and radiation therapy. In view of this, an MRI with and without contrast was obtained, which revealed left periventricular a cute infarcts. Patient was adamant of going home. She has been ambulating in the hallway per staff without any difficulty. She is also tolerating oral solid diet. The patient's acute infarct, likely is due to chronic occlusion of the internal carotid artery. She is neurologically stable at the torrey e of discharge. Please see a [id number] documentation on [facility] for the day of discharge. The ramón valerio needs follow up with Oncology group here with Dr. Lawrence as before.
--- NOTE | 2018-02-10 18:06 | CON ---
DATE OF CONSULTATION: 02/08/2018 REFERRING PHYSICIAN: Vargas West M.D. REASON FOR CONSULTATION: Left-sided weakness. HISTORY OF PRESENT ILLNESS: Ms. Piña is a 57-year-old female, who has been consulted for evaluation of left-sided weakness. History is obtained from the patient as well as her medical chart. The patient has multiple medical problems including lung cancer who is undergoing chemo and radiation therapy. She also had a recent stroke, which resulted in right-sided weakness. She was found to have bilateral cerebral hemispheric stroke with more prominent on the left middle cerebral artery distribution. She reports that she was doing well over the past week; however, yesterday, she had sudden onset of numbness on her left side. Left upper and left lower extremity numbness, but did not have any weakness. She did not have any changes in her speech or vision. There was no difficulty with her gait and balance. As these symptoms came on, she decided to present to the [facility] emergency room. She reports that her symptoms have now resolved since being admitted to the hospital. She currently denies any headache, chest pain, palpitation, fever or chills. PAST MEDICAL HISTORY: Significant for lung cancer, hypertension, diabetes, peripheral vascular disease, history of left carotid artery stenosis with occlusion. PAST SURGICAL HISTORY: Significant for left carotid endarterectomy, partial hysterectomy and aortofemoral bypass surgery. FAMILY HISTORY: Noncontributory. SOCIAL HISTORY: She does report of having a history of smoking and marijuana use. Social drinker. REVIEW OF SYSTEMS: As mentioned above in HPI, otherwise negative. PHYSICAL EXAMINATION: VITAL SIGNS: Blood pressure of 160/80, temperature 99.1, respirations of 18, O2 sats of 93% on room air. GENERAL: Well-developed, well-nourished female, in no apparent distress. RESPIRATORY: Clear to auscultation bilaterally. CARDIOVASCULAR: Regular rate and rhythm. NEUROLOGIC: Mental status: The patient is awake, alert and oriented x3. Speech and language, fluent speech. Cranial nerves: Pupils are 3 mm and reactive. Visual nielsen are intact. Extraocular muscle movement are intact. No nystagmus noted. Face is symmetric. Tongue and uvula are midline. Motor exam showed increased tone of the right upper and right lower extremities. She has a 3-4/5 strength in the right upper and right lower extremities. Strength in the left upper and left lower extremities is 5/5. Sensory: Sensation is intact and symmetric in both upper and lower extremities. Deep tendon reflexes , somewhat brisk reflexes on the right upper extremity. Gait and Romberg are not tested. Coordination, intact to [id number] and finger tapping bilaterally. LABORATORY DATA: I reviewed, which included CBC, CMP and urinalysis, which is significant for hemoglobin of 11, hematocrit of 32.1, otherwise unremarkable. IMAGING STUDIES: CT head without contrast was reviewed, which showed bilateral MCA distribution ischemic infarct, more so on the left than the right. CT angiogram of the neck was reviewed, which showed chronic occlusion of the left internal carotid artery. There is also absence of opacification in the right M1 segment suggesting occlusion. IMPRESSION: 1. Left-sided numbness, now resolved, likely suggestive of transient ischemic attack. 2. Right M1 occlusion. 3. Hypertension. ASSESSMENT AND PLAN: Ms. Piña is a pleasant 57-year-old female who presented with acute onset of left-sided numbness, this has now resolved. Based on the presentation this could be transient ischemic attack or acute ischemic infarct involving the right side. I would recommend obtaining MRI brain without contrast. If this does not show any acute ischemic event, then patient is okay to be discharged to home. The patient will continue on current antiplatelet therapy. I have discussed with the patient about secondary stroke risk factors and explained that she needs to control them to prevent future stroke. Consult PT, OT for rehab evaluation. No further neurological workup needed from my standpoint. Thank you for your consultation. NELLY
== END 2018-02-09 15:15 | disposition home or self-care (01) ==
LOC: ERS 11:10 → 2SE 14:56
PROVIDERS: ADMIT Internal Medicine; ATTEND Internal Medicine
DX: I63.9 Cerebral infarction, unspecified (principal); C34.90 Malignant neoplasm of unspecified part of unspecified bronchus or lung; I65.22 Occlusion and stenosis of left carotid artery; I10 Essential (primary) hypertension; E78.5 Hyperlipidemia, unspecified; E11.40 Type 2 diabetes mellitus with diabetic neuropathy, unspecified; I73.9 Peripheral vascular disease, unspecified; Z86.73 Personal history of transient ischemic attack (TIA), and cerebral infarction without residual deficits; Z87.891 Personal history of nicotine dependence; Z79.82 Long term (current) use of aspirin; Z79.84 Long term (current) use of oral hypoglycemic drugs; Z79.899 Other long term (current) drug therapy; Z88.5 Allergy status to narcotic agent
CPT/HCPCS: 70450; 70496; 70498; 70553; 80053; 81003; 82550; 82553; 82962 ×3; 84484; 85025; 85610; 85730; 93005; 94640 ×2; 96372 ×2; 99285; G0378 ×2; 36416; A4216; J1650; J7620

== ENCOUNTER 2018-04-25 08:23 | Outpatient (CLI) | payer MEDICARE, MEDICAID ==
--- NOTE | 2018-04-25 13:08 | PET ---
NUCLEAR MEDICINE FDG PET CT: (Positron Emission Tomography) DATE: 04/25/18 HISTORY: 57-year-old female with left lower lobe lung cancer. Restaging. COMPARISON: 11/06/17. TECHNIQUE: IV injection F-18 Fluorodeoxyglucose (FDG) dose: 12.9 mCi PET and attenuation-correction CT performed from skull base to proximal thighs. FINDINGS: SUV (standard uptake value) numbers given are QCLR maximum SUV's: The previously demonstrated hypermetabolic activity in the left hilum and parahilar lower lobe lung p kimyma, which had previous SUV of 19.3, is now smaller in size. Measurements are difficult to obta ined because there is no IV contrast that would allow separation of central hilar blood vessels from the mass, but it is approximately 2 cm currently. SUV is now 3.5, whereas previously it was 19.3. There are no hypermetabolic mediastinal lymph nodes. No other abnormally hypermetabolic lesions in th e rest of the chest, abdomen, or pelvis. In the neck, there is asymmetrical hypermetabolic activity in the lingual tonsil, left nasopharyngeal airway, and left palatine tonsil. The region of the left palatine tonsil appears larger than the rig ht on the current study. These are nonspecific findings and could represent infectious/inflammatory c hanges. Recommend direct visualization. These findings were present previously, but the asymmetry of the left palatine tonsil appears greater on the current study compared to previous. IMPRESSION: 1. Partial response to therapy. The left hilar/perihilar superior segment left lower lobe mass has d ecreased in size and greatly decreased in the degree of FDG uptake compared to 11/06/17. 2. No evidence of distant metastasis. 3. Increased uptake in Waldeyer's ring. Recommend clinical correlation and direct visualization, ted ecially of the left palatine tonsil region. KELTON Cox POS: MELANIE
== END 2018-04-25 08:24 | disposition home or self-care (01) ==
LOC: PET 08:23
PROVIDERS: ATTEND Internal Medicine Hematology & Oncology
DX: C34.92 Malignant neoplasm of unspecified part of left bronchus or lung (principal)
CPT/HCPCS: 78815; A9552

== ENCOUNTER 2018-05-23 13:46 | Day surgery (SDC) | payer MEDICARE, MEDICAID ==
[2018-05-23] MEDS ORDERED: Sodium Chloride 0.9% 10 ML ONE (14:27)
[2018-05-23] MEDS ORDERED: SODIUM CHLORIDE 0.9% IV SCH (14:30)
[2018-05-23] MEDS ORDERED: DURVALUMAB IV SCH (14:30)
== END 2018-05-23 15:57 | disposition home or self-care (01) ==
LOC: ONC/OP 13:46
PROVIDERS: ATTEND Internal Medicine Hematology & Oncology
DX: Z51.11 Encounter for antineoplastic chemotherapy (principal); C34.82 Malignant neoplasm of overlapping sites of left bronchus and lung; Z88.5 Allergy status to narcotic agent; Z79.899 Other long term (current) drug therapy
CPT/HCPCS: 36415; 80053; 82248; 83615; 84100; 84436; 84443; 84550; 96413; C9492; J1642; J7050; J9173

== ENCOUNTER 2018-06-06 13:23 | Day surgery (SDC) | payer MEDICARE, MEDICAID ==
[2018-06-06 13:39] VITALS: BP 134/80; TEMP 98.8
[2018-06-06] MEDS ORDERED: Sodium Chloride 0.9% 20 ML ONE (13:48)
[2018-06-06] MEDS ORDERED: SODIUM CHLORIDE 0.9% IV SCH ×2 (14:00)
[2018-06-06] MEDS ORDERED: DURVALUMAB IV SCH ×2 (14:00)
== END 2018-06-06 17:19 | disposition home or self-care (01) ==
LOC: ONC/OP 13:23
PROVIDERS: ATTEND Internal Medicine Hematology & Oncology
DX: Z51.11 Encounter for antineoplastic chemotherapy (principal); C34.82 Malignant neoplasm of overlapping sites of left bronchus and lung; Z88.5 Allergy status to narcotic agent; Z79.84 Long term (current) use of oral hypoglycemic drugs; Z79.82 Long term (current) use of aspirin; Z79.899 Other long term (current) drug therapy
CPT/HCPCS: 96413; C9492; J1642; J7050; J9173

== ENCOUNTER 2018-06-20 10:51 | Day surgery (SDC) | payer MEDICARE, MEDICAID ==
[2018-06-20] MEDS ORDERED: Sodium Chloride 0.9% 20 ML ONE (10:56)
[2018-06-20 11:04] VITALS: BP 135/79; TEMP 97.4
[2018-06-20] MEDS ORDERED: SODIUM CHLORIDE 0.9% IV SCH (11:15)
[2018-06-20] MEDS ORDERED: DURVALUMAB IV SCH (11:15)
== END 2018-06-20 12:55 | disposition home or self-care (01) ==
LOC: ONC/OP 10:51
PROVIDERS: ATTEND Internal Medicine Hematology & Oncology
DX: Z51.12 Encounter for antineoplastic immunotherapy (principal); C34.82 Malignant neoplasm of overlapping sites of left bronchus and lung; I69.351 Hemiplegia and hemiparesis following cerebral infarction affecting right dominant side; I10 Essential (primary) hypertension; E11.9 Type 2 diabetes mellitus without complications; E78.00 Pure hypercholesterolemia, unspecified; Z87.891 Personal history of nicotine dependence; Z79.82 Long term (current) use of aspirin; Z79.84 Long term (current) use of oral hypoglycemic drugs; Z79.899 Other long term (current) drug therapy; Z88.5 Allergy status to narcotic agent
CPT/HCPCS: 36415; 80053; 82248; 83615; 84100; 84436; 84443; 84550; 96413; C9492; J1642; J7050; J9173

== ENCOUNTER 2018-07-04 01:13 | Day surgery (SDC) | payer MEDICARE, MEDICAID ==
[2018-07-04] MEDS ORDERED: SODIUM CHLORIDE 0.9% IV SCH (06:00)
[2018-07-04] MEDS ORDERED: DURVALUMAB IV SCH (06:00)
[2018-07-04] MEDS ORDERED: Sodium Chloride 0.9% 20 ML ONE (12:51)
[2018-07-04 12:59] VITALS: BP 158/76; TEMP 98.4
== END 2018-07-04 14:35 | disposition home or self-care (01) ==
LOC: ONC/OP 01:13
PROVIDERS: ATTEND Internal Medicine Hematology & Oncology
DX: Z51.12 Encounter for antineoplastic immunotherapy (principal); C34.82 Malignant neoplasm of overlapping sites of left bronchus and lung; I69.351 Hemiplegia and hemiparesis following cerebral infarction affecting right dominant side; E11.9 Type 2 diabetes mellitus without complications; I10 Essential (primary) hypertension; E78.00 Pure hypercholesterolemia, unspecified; Z88.2 Allergy status to sulfonamides; Z87.891 Personal history of nicotine dependence
CPT/HCPCS: 96413; C9492; J1642; J7050; J9173

== ENCOUNTER 2018-07-18 10:35 | Day surgery (SDC) | payer MEDICARE, MEDICAID ==
[~2018-07-18 10:35] MED LIST changes: -Bupivacaine HCl 0.5%/Epinephrine 1:200,000/PF 30 ml Vial ONE; -CEFAZOLIN/Water 2 GM/20 ML SYRINGE ONE; +DURVALUMAB IV SCH; -Fentanyl 100 MCG/2 ML VIAL ONE; -Lidocaine 2% Jelly 5 ML TUBE ONE; -Lidocaine 2% w/Epinephrine 1:200K 20 ML VIAL ONE; -Midazolam HCl 2 mg/2 ml Vial ONE; -PROPOFOL 200 MG/20 ML VIAL ONE; -Propofol 500 MG/50 ML VIAL ONE; +SODIUM CHLORIDE 0.9% IV SCH; +Sodium Chloride 0.9% 20 ML ONE
[2018-07-18 14:00] VITALS: BP 161/90; TEMP 97.6
== END 2018-07-18 14:01 | disposition home or self-care (01) ==
LOC: ONC/OP 10:35
PROVIDERS: ATTEND Internal Medicine Hematology & Oncology
DX: Z51.12 Encounter for antineoplastic immunotherapy (principal); C34.82 Malignant neoplasm of overlapping sites of left bronchus and lung; E11.9 Type 2 diabetes mellitus without complications; I10 Essential (primary) hypertension; E78.00 Pure hypercholesterolemia, unspecified; Z86.73 Personal history of transient ischemic attack (TIA), and cerebral infarction without residual deficits; Z79.84 Long term (current) use of oral hypoglycemic drugs; Z79.82 Long term (current) use of aspirin; Z79.899 Other long term (current) drug therapy; Z88.5 Allergy status to narcotic agent
CPT/HCPCS: 36415; 80053; 82248; 83615; 84100; 84436; 84443; 84550; 96413; C9492; J1642; J7050; J9173

== ENCOUNTER 2018-08-01 13:28 | Day surgery (SDC) | payer MEDICARE, MEDICAID ==
[~2018-08-01 13:28] MED LIST changes: -Sodium Chloride 0.9% 20 ML ONE
[2018-08-01 13:37] VITALS: BP 169/80; TEMP 98
== END 2018-08-01 15:53 | disposition home or self-care (01) ==
LOC: ONC/OP 13:28
PROVIDERS: ATTEND Internal Medicine Hematology & Oncology
DX: Z51.12 Encounter for antineoplastic immunotherapy (principal); C34.82 Malignant neoplasm of overlapping sites of left bronchus and lung; Z88.5 Allergy status to narcotic agent
CPT/HCPCS: 96413; C9492; J7050; J9173

== ENCOUNTER 2018-08-15 12:07 | Day surgery (SDC) | payer MEDICARE, MEDICAID ==
[2018-08-15 12:20] VITALS: BP 132/81; TEMP 97.6
[2018-08-15] MEDS ORDERED: Sodium Chloride 0.9% 30 ML ONE (12:24)
== END 2018-08-15 14:44 | disposition home or self-care (01) ==
LOC: ONC/OP 12:07
PROVIDERS: ATTEND Internal Medicine Hematology & Oncology
DX: Z51.12 Encounter for antineoplastic immunotherapy (principal); C34.82 Malignant neoplasm of overlapping sites of left bronchus and lung; I10 Essential (primary) hypertension; E11.9 Type 2 diabetes mellitus without complications; E78.00 Pure hypercholesterolemia, unspecified; Z90.711 Acquired absence of uterus with remaining cervical stump; Z88.5 Allergy status to narcotic agent; Z79.84 Long term (current) use of oral hypoglycemic drugs; Z79.82 Long term (current) use of aspirin; Z79.899 Other long term (current) drug therapy; Z98.890 Other specified postprocedural states
CPT/HCPCS: 36415; 80053; 82248; 83615; 84100; 84436; 84443; 84550; 96413; C9492; J1642; J7050; J9173

== ENCOUNTER 2018-08-29 13:06 | Day surgery (SDC) | payer MEDICARE, MEDICAID ==
[2018-08-29 13:56] VITALS: BP 180/77; TEMP 98.1
[2018-08-29] MEDS ORDERED: Sodium Chloride 0.9% 20 ML ONE (14:07)
== END 2018-08-29 15:28 | disposition home or self-care (01) ==
LOC: ONC/OP 13:06
PROVIDERS: ATTEND Internal Medicine Hematology & Oncology
DX: Z51.12 Encounter for antineoplastic immunotherapy (principal); C34.82 Malignant neoplasm of overlapping sites of left bronchus and lung; Z88.5 Allergy status to narcotic agent
CPT/HCPCS: 96413; C9492; J1642; J3490; J9173

== ENCOUNTER 2018-09-12 14:05 | Day surgery (SDC) | payer MEDICARE, MEDICAID ==
[2018-09-12] MEDS ORDERED: Sodium Chloride 0.9% 20 ML ONE (14:16)
[2018-09-12 14:20] VITALS: BP 115/69; TEMP 97.7
== END 2018-09-12 15:30 | disposition home or self-care (01) ==
LOC: ONC/OP 14:05
PROVIDERS: ATTEND Internal Medicine Hematology & Oncology
DX: Z51.12 Encounter for antineoplastic immunotherapy (principal); C34.82 Malignant neoplasm of overlapping sites of left bronchus and lung; Z88.5 Allergy status to narcotic agent
CPT/HCPCS: 36415; 80053; 82248; 83615; 84100; 84436; 84443; 84550; 96413; C9492; J1642; J3490; J9173

== ENCOUNTER 2018-09-13 16:16 | Observation (INO) | payer MEDICARE, MEDICAID ==
--- NOTE | 2018-09-13 17:01 | CT ---
CT Brain WO Con: 09/13/2018 12:00 AM CLINICAL HISTORY: Stroke, weakness. COMPARISON: None. FINDINGS: Hemorrhage: None. Ventricular system: Normal in size and morphology for the patient's age. Cerebral parenchyma: Microvascular ischemic disease, with superimposed multifocal encephalomalacia Midline shift: None. Mass: No mass effect. Calvarium: Normal. Visualized Paranasal sinuses: Clear. IMPRESSION: No acute intracranial hemorrhage or mass effect Notification placed to ER physician at time of dictation, 1635 hours
[2018-09-13 17:06] LABS: #Basophils 0.1 thou/uL (0.0-0.2); #Eosinphils 0.1 thou/uL (0.0-0.7); #Lymphocytes 1.6 thou/uL (1.20-3.40); #Monocytes 0.6 thou/uL (0.11-0.59); #Neutrophils 2.5 thou/uL (1.40-6.50); %Basophils 1.5 % (0.0-1.0); %Eosinophils 2.3 % (0.0-10.0); %Lymphocytes 32.7 % (21.0-51.0); %Monocytes 12.5 % (0.0-10.0); %Neutrophils 50.9 % (42.0-75.0); Hemoglobin 12.2 g/dL (12.0-16.0); Mean Corpuscular HGB CONC 34.5 g/dL (32.0-36.0); Mean Corpuscular Hemoglobin 28.2 pg (27.0-31.0); Mean Corpuscular Volume 81.9 fL (78.0-98.0); Mean Platelet Volume 9.1 fL (7.4-10.4); Platelet Count 189 thou/uL (130-400); RBC Distribution Width 13.9 % (11.5-14.5); Red Blood Cell (RBC) Count 4.33 mill/uL (4.20-5.40)
[2018-09-13 17:37] LABS: ALT (SGPT) 43 U/L (8-55); AST (SGOT) 22 U/L (5-34); Albumin 3.7 g/dL (3.5-5.0); Alkaline Phosphatase 57 U/L (40-150); Anion Gap 11 mmol/L (10-20); BUN (Urea Nitrogen) 24 mg/dL (9.8-20.1); Bilirubin, Total 0.4 mg/dL (0.2-1.2); Calc. Creatinine Clearance 0 mL/min (70-130); Calcium 10.9 mg/dL (7.8-10.44); Carbon Dioxide 25 mmol/L (22-29); Chloride 106 mmol/L (98-107); Estimated GFR-MDRD 48; Globulin 3.5 g/dL (2.4-3.5); Glucose 101 mg/dL (70-105); Potassium 4.4 mmol/L (3.5-5.1); Protein, Total 7.2 g/dL (6.0-8.3); Sodium 138 mmol/L (136-145)
[2018-09-13] MEDS ORDERED: Aspirin Chewable 81 MG TAB ONE (18:57)
[2018-09-13] MEDS ORDERED: Sodium Chloride 0.9% 1,000 ML IV SCH (21:32)
[2018-09-13] MEDS ORDERED: Acetaminophen 325 MG TAB PO PRN (21:32)
[2018-09-13] MEDS ORDERED: Ondansetron ODT 4 MG TAB SL PRN (21:32)
[2018-09-13] MEDS ORDERED: Ondansetron PF 4 MG/2 ML Vial IVP PRN (21:32)
[2018-09-13] MEDS ORDERED: Dextrose 50% Abboject 50 ML SYRINGE SLOW IVP PRN (21:37)
[2018-09-13] MEDS ORDERED: Dextrose 5% in Water 1,000 ML IV PRN (21:37)
[2018-09-13] MEDS ORDERED: HumaLOG 300 UNITS/3 ML VIAL SC PRN (21:37)
[2018-09-13 22:48] LABS: Bilirubin Negative (Negative); Blood, Urine Negative (Negative); Clarity CLEAR (Clear); Glucose, Urine (Dipstick) Negative (Negative); Leukocyte Negative (Negative); Nitrite Negative (Negative); Protein, Urine (Dipstick) Negative (Neg-Trace); Specific Gravity, Urine 1.021 (1.002-1.036)
[2018-09-13 22:50] LABS: Bacteria/HPF None Seen HPF (None Seen); Hyaline Casts/LPF 0-3 HYALINE CAST LPF (0-3 Hyaline); Pathc Cast-AUWi Flag 0.54 (0-2.49); RBC/HPF 0-3 HPF (0-3)
--- NOTE | 2018-09-13 23:09 | HP ---
PRIMARY CARE PHYSICIAN: The patient goes to [facility]. CODE STATUS: Full code. TIME OF EVALUATION: 8:00 p.m. CHIEF COMPLAINT: Change in mental status and aphasia. HISTORY OF PRESENT ILLNESS: This is a 57-year-old female patient with past medical history of previous DVTs, diabetes type 2, hypertension, lung cancer, still on chemo, came to the hospital after having acute aphasia. The patient was unable to find words, associated with some change in mental status reported as per family. These symptoms have been getting worse during the day; however, has been fluctuating. By the time of my examination, the patient has had some recovery. Still not at baseline. No other significant deficits were found. No clear triggers, no alleviating factors, symptoms were severe. The patient was unable to talk. REVIEW OF SYSTEMS: CONSTITUTIONAL: No fever, chills, or generalized weakness. RESPIRATORY: No cough, sputum production, or shortness of breath. CARDIOVASCULAR: No chest pain, or palpitation. GASTROINTESTINAL: No nausea, vomiting, diarrhea, or abdominal pain. 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 By the time of my examination, this has improved. No headache, or feeling lightheaded. GENITOURINARY: No burning on urination. EXTREMITIES: No leg swelling. All other systems were reviewed and negative except for the findings mentioned above. PAST MEDICAL HISTORY: As mentioned in the HPI. FAMILY HISTORY: Reviewed, noncontributory to this case. PAST SURGICAL HISTORY: Positive for left carotid endarterectomy, bilateral leg surgery for blood clot, surgical history of partial hysterectomy, left neck artery surgery, recent lung biopsy. PSYCHIATRIC HISTORY: No previous psychiatric history. SOCIAL HISTORY: The patient denies alcohol use, or drug use. Former tobacco user. Smokes cigarettes. The patient quit smoking in the past year. Lives at home alone. KNOWN ALLERGIES: Codeine phosphate. REPORTED MEDICATIONS: 1. Gabapentin. 2. Ventolin. 3. Pravastatin. 4. Lisinopril. 5. Metformin. 6. Aspirin. PHYSICAL EXAMINATION: VITAL SIGNS: On presentation, blood pressure 169/88 with heart rate 99, respiratory rate was 18, temperature 98.7, oxygen saturation was 97% on room air. GENERAL APPEARANCE: The patient is alert, oriented, not in acute distress. HEENT: Eyes, normal conjunctivae. Moist oral mucosa. Anicteric. No JVD. RESPIRATORY: Bilateral air entry. No rales. No wheezes. Symmetric expansion. CARDIOVASCULAR: Normal rate, regular rhythm. No murmurs. No gallop. No edema. ABDOMEN: Soft. Normal bowel sounds. MUSCULOSKELETAL: Baseline range of motion and strength. No tenderness. SKIN: Warm, intact. No pallor. No rash. No redness. Peripheral pulses are present. Capillary refill seems to be intact. NEUROLOGIC: The patient has still some aphasia, although she is able to express herself that was not the case earlier. No any specific focal weakness. Cranial nerves seems to be intact. PSYCHIATRIC: The patient is in good mood. No anxiety. Optimal judgment. DIAGNOSTIC DATA: EKG was reviewed. The patient has normal sinus rhythm, ventricular rate 90, NE 136, QRS 82, QT corrected 445. Radiology; head CT was negative. Hematology, white count 5.0, hemoglobin 12.2, MCV 81.9, platelet count 289. Chemistry; sodium 138, potassium 4.4, chloride 106 carbon dioxide 25, anion gap 11, BUN 24, creatinine 1.37, previous creatinine was 0.81, GFR was 48, glucose 101, calcium 10.9, total bilirubin 0.4. AST was 22, ALT was 43, alkaline phosphatase 57. Troponin was negative. Serum total protein 7.2, albumin 3.7, globulin 3.5, albumin globulin ratio is 1.1. ASSESSMENT AND PLAN: The patient will be placed in the hospital with following medical problems: 1. Possible transient ischemic attack. The patient has some infusion that was complete, she was unable to speak. Symptoms were severe. These have recovered by the time of my examination. She still have some changes, but she is able to speak, we will do a stroke workup, we will consult Neurology. 2. Acute kidney injury. The patient has 1.37 creatinine that initially was 0.8 yesterday. We will monitor kidney function, we will treat accordingly. 3. History of lung cancer, receiving chemo, MRI is warranted just to rule out metastatic disease. 4. Controlled diabetes. We will reconcile home medications, we will adjust sliding scale for optimal control. 5. Uncontrolled hypertension on presentation with systolic blood pressure 169. We will allow permissive hypertension due to new onset of neurological symptoms. 6. Deep venous thrombosis prophylaxis. Job ID: [id number] [facility]
[2018-09-14 05:25] LABS: #Eosinphils 0.1 thou/uL (0.0-0.7); #Lymphocytes 1.4 thou/uL (1.20-3.40); #Monocytes 0.5 thou/uL (0.11-0.59); %Basophils 1.1 % (0.0-1.0); %Eosinophils 3.3 % (0.0-10.0); %Lymphocytes 34.3 % (21.0-51.0); %Monocytes 12.3 % (0.0-10.0); Hemoglobin 11.1 g/dL (12.0-16.0); Mean Corpuscular HGB CONC 34.7 g/dL (32.0-36.0); Mean Corpuscular Hemoglobin 29.3 pg (27.0-31.0); Mean Corpuscular Volume 84.2 fL (78.0-98.0); Mean Platelet Volume 8.9 fL (7.4-10.4); Platelet Count 170 thou/uL (130-400); Red Blood Cell (RBC) Count 3.81 mill/uL (4.20-5.40); White Blood Cell (WBC) Count 4.1 thou/uL (4.8-10.8)
[2018-09-14 05:57] LABS: Anion Gap 9 mmol/L (10-20); BUN (Urea Nitrogen) 17 mg/dL (9.8-20.1); Calc. Creatinine Clearance 103 mL/min (70-130); Calcium 10.3 mg/dL (7.8-10.44); Carbon Dioxide 26 mmol/L (22-29); Chloride 109 mmol/L (98-107); Cholesterol 178 mg/dl (< 200 Desired); Estimated GFR-MDRD Greater than 90; Glucose 98 mg/dL (70-105); HDL Cholesterol 44 mg/dL (>60 Neg Risk); LDL Cholesterol, Calculated 122 mg/dL; Potassium 4.6 mmol/L (3.5-5.1); Sodium 138 mmol/L (136-145); Triglycerides 60 mg/dL (Less than 150)
[2018-09-14] MEDS: Enoxaparin Sodium 40 MG/0.4 ML SYRINGE SC SCH (08:55)
[2018-09-14] MEDS: Aspirin 81 mg Enteric Coated Tablet PO SCH (08:55)
--- NOTE | 2018-09-14 10:30 | ULT ---
BILATERAL CAROTID DUPLEX ULTRASOUND: Date: 09/14/18 HISTORY: TIA. FINDINGS: Real-time color Doppler evaluation of the right and left carotid systems was performed. On the right side, there is intimal thickening involving the common carotid and internal carotid ray ry. Patient has a known left ICA occlusion. On the right side, peak systolic velocities of the common carotid were 84 cm/second. Internal carotid velocities were 79 cm/second and external carotid velocities were 91 cm/second. On the left side, peak systolic velocities of the common carotid were 41 cm/second. No flow seen with in the internal carotid. External carotid velocities were 161 cm/second. IMPRESSION: 1. Occlusion of the left internal carotid artery. 2. No significant stenosis of the right internal carotid artery noted. 3. Vertebral flow antegrade bilaterally. POS: C
[2018-09-14] MEDS ORDERED: ISOVUE-370 76%-LOCM 1 ML ONE (11:34)
--- NOTE | 2018-09-14 12:04 | MRI ---
MRI BRAIN WITHOUT CONTRAST: Date: 09/14/18 Multiplanar, multisequential imaging of brain obtained. INDICATION: TIA. Comparison made to prior brain MRI from 10/27/17. That exam revealed acute infarct in the left fronto parietal region. FINDINGS: On today's exam, there is moderately severe chronic ischemic white matter changes seen in both cerebr al hemispheres. There is gliosis and volume loss in the left frontoparietal lobe region at the site o f the previously noted infarct. There is no evidence of restricted diffusion seen today. No acute infarct identified on today's study . There is no mass, edema, or hemorrhage identified. IMPRESSION: Severe chronic ischemic white matter changes seen. Evidence of old left parietal infarct. No acute pr ocess. POS: OFF
--- NOTE | 2018-09-14 15:32 | CON ---
DATE OF CONSULTATION: CHIEF COMPLAINT: Speech difficulty. HISTORY OF PRESENT ILLNESS: The patient is a 57-year-old lady, who is currently going through chemotherapy for lung cancer. She reports she could not talk and those symptoms last about 2 hours yesterday. She also had similar episodes for the past 1 month and her family urged her to come to the hospital. The patient does not report any weakness. She also has been off balance and fell a few times. She has headaches for the last 2 days on and off. PREVIOUS MEDICAL HISTORY: Positive for lung cancer with chemotherapy and she had Mohs surgery for this lung cancer and she also has history of diabetes, previous history of DVTs, and hypertension. Three CVAs in the past with residual right-sided weakness and ambulates with a cane at baseline. PAST SURGICAL HISTORY: The patient had left carotid endarterectomy, bilateral leg surgery with blood clots, partial hysterectomy, and recent lung biopsy. FAMILY HISTORY: Positive for lung cancer in her father, who at 69. She does not know much about her mother because she was adopted. The patient has 3 biological brothers, one has diabetes. REVIEW OF SYSTEMS: PULMONARY: Negative for shortness of breath or cough. CARDIOVASCULAR: Negative for palpitations or chest pain. GI: Negative for bowel dysfunction such as diarrhea or vomiting or nausea. GENITOURINARY: Negative for bladder dysfunction. NEUROLOGIC: Positive for CVA and right-sided weakness and spells of aphasia. ENDOCRINE: Positive for diabetes. PULMONARY: Positive for lung cancer. LABORATORY WORKUP: White count 4.1, hemoglobin 11.1, hematocrit 32, platelets 170. Sodium 138, potassium 4.6, chloride 106, bicarb 26, BUN 17, creatinine 0.75, and glucose 98. Cholesterol panel and lipid profile are within normal limits. Liver functions are within normal limits. Her MRI of the brain was performed. MRI showed severe chronic white matter changes. Evidence of old left parietal infarct. No acute process. Echocardiogram shows EF at 55% to 60%, normal size left atrium and carotid Doppler study was also completed and there is occlusion of left ICA. No significant stenosis of the right ICA noted. PHYSICAL EXAMINATION: VITAL SIGNS: Blood pressure 135/83, temperature 97.6, pulse 77, respiratory rate 18, and O2 sats 98%. GENERAL APPEARANCE: Well-built, well-nourished lady. CHEST: Clear vesicular breathing. CARDIOVASCULAR: S1 and S2 heard. No murmurs. ABDOMEN: Soft. NEUROLOGICAL: Higher intellectual functions normal. Normal orientation to time, place, and person. Cranial nerves 2 through 12 are normal with normal extraocular movements. Decreased facial sensation on the right side normal. No facial asymmetry. Tongue midline. No atrophy noted. Normal elevation of palate. Normal hearing to finger rub bilaterally. Motor, bulk normal. Tone normal. Strength 5/5, mostly except for slight generalized weakness with 4/5 in the upper extremities as well as left lower extremity and 3/5 strength in the right leg. Muscle groups tested are deltoid, biceps, triceps, wrist extension and flexion, finger extension and flexion bilaterally. Deep tendon reflexes 2+ throughout. Cerebellar, normal [id number] and slight asymmetry with [id number] on the right side. Sensory decreased sensation on the right side, upper and lower extremities. IMPRESSION: The patient is a 57-year-old with numerous white matter ischemic changes on the MRI of the brain. She is presenting with 1-month history of intermittent aphasia. She is also having some balance problems. She is on chemotherapy, so it is unclear whether there is some effect from chemotherapy as well. However, on her carotid Dopplers, it is ICA occlusion which needs to be explored further. Her neurological examination shows generalized weakness and nonspecific sensory symptoms. RECOMMENDATIONS: I would like to obtain a CT angiogram of the neck and head, so we can confirm the ICA occlusion seen on the ultrasound. For now, continue her aspirin and statin and I will see her again tomorrow once CTA is complete. Job ID: [id number]
--- NOTE | 2018-09-14 22:17 | CT ---
CT BRAIN WITHOUT CONTRAST CTA BRAIN WITH IV CONTRAST AND 3D POSTPROCESSING CTA NECK WITH IV CONTRAST AND 3D POSTPROCESSING 09/14/18 HISTORY: CVA, TIA. COMPARISON: 02/07/18. Changes of old infarcts in the frontal lobes are again seen along with chronic small vessel ischemic disease in the periventricular white matter. The ventricular size is stable and the basilar cisterns patent. No evidence of acute infarct, hemorrhage, midline shift, or abnormal extra-axial fluid selvin ections noted. There is continued chronic occlusion of the left internal carotid artery and the right M1 segment. Co llateral flow into the left A1 and M1 segments is again seen. Remainder of the arteriogram is also stable. IMPRESSION: No CT evidence of acute intracranial process. Stable exam since 02/07/18. POS: MELANIE
[2018-09-14] MEDS ORDERED: PROVENTIL INHALER 6.7 G (200 INHALATIONS) INH PRN (22:32)
[2018-09-14] MEDS ORDERED: diphenhydrAMINE 25 MG CAP PO PRN (23:05)
[2018-09-14] MEDS ORDERED: Gabapentin 300 MG CAP PO SCH (23:15)
[2018-09-14] MEDS ORDERED: Lisinopril 10 MG TAB PO SCH (23:15)
--- NOTE | 2018-09-14 23:25 | PDOC.PN ---
- Subjective Encounter Start Date: 09/14/18 Encounter Start Time: 10:00 Doing well. completely back to baseline. no neuro deficits. - Objective Resuscitation Status - Order Detail: 09/13/18 21:33 Resuscitation Status Routine Resuscitation Status: FULL: Full Resuscitation Vital Signs & Weight: Vital Signs (12 hours) Temp Pulse Resp BP BP Pulse Ox 09/14/18 23:19 142/65 H 09/14/18 19:00 98.9 F 78 16 175/79 H 95 09/14/18 15:20 98.6 F 88 18 154/85 H 96 09/14/18 11:43 98.3 F 85 18 146/73 H 97 Weight Weight 178 lb 1.6 oz I&O: 09/13/18 09/14/18 09/15/18 06:59 06:59 06:59 Intake Total 1750 Output Total 700 Balance -700 1750 Result Diagrams: 09/14/18 04:54 09/14/18 04:54 Additional Labs: Accuchecks 09/14/18 09/14/18 09/14/18 20:43 16:41 10:35 POC Glucose 140 H 112 H 97 09/14/18 05:30 POC Glucose 108 Phys Exam - Physical Examination Constitutional: NAD Respiratory: no wheezing, no rhonchi mild rales left base Gastrointestinal: soft, non-tender, no distention Musculoskeletal: no edema Neurological: non-focal Psychiatric: normal affect, A&O x 3 Dx/Plan (1) TIA (transient ischemic attack) Code(s): G45.9 - TRANSIENT CEREBRAL ISCHEMIC ATTACK, UNSPECIFIED Status: Acute (2) DM type 2 (diabetes mellitus, type 2) Status: Chronic Qualifiers: Diabetes mellitus [facility] insulin use: without terminologist use Diabetes mellitus complication status: with circulatory complication (3) HTN (hypertension) Code(s): I10 - ESSENTIAL (PRIMARY) HYPERTENSION Status: Chronic Qualifiers: Hypertension type: essential hypertension Qualified Code(s): I10 - Essential (primary) hypertension (4) Lung cancer Code(s): C34.90 - MALIGNANT NEOPLASM OF UNSP PART OF UNSP BRONCHUS OR LUNG Status: Chronic Qualifiers: Laterality: left Comment: on chemo/radiation (5) Occlusion of left internal carotid artery Code(s): I65.22 - OCCLUSION AND STENOSIS OF LEFT CAROTID ARTERY Status: Chronic - Plan * Doing well overall. Patient occurs to be completely back to her baseline. Anticipated possible discharge today following echocardiogram results. Discussed with Benedict. Neurology has seen the patient and would like to follow up with the CT angiogram of the head and neck. Neurology will follow up with the patient tomorrow therefore she will stay until she has the follow up evaluation. Also discussed the case with Dr. Lawrence who is the patients primary oncologist.
[2018-09-15] MEDS: Enoxaparin Sodium 40 MG/0.4 ML SYRINGE SC SCH (08:18)
[2018-09-15] MEDS: Aspirin 81 mg Enteric Coated Tablet PO SCH (08:18)
[2018-09-15] MEDS ORDERED: Lisinopril 10 MG TAB PO SCH (09:00)
[2018-09-15] MEDS ORDERED: Carvedilol 3.125 MG TAB PO SCH ×2 (10:45→17:00)
[2018-09-15 15:39] VITALS: BP 171/86; TEMP 97.8
--- NOTE | 2018-09-15 18:00 | PRG ---
DATE OF SERVICE: 09/15/2018 SUBJECTIVE: Ms. Piña is a very pleasant 57-year-old female with past medical history significant for lung cancer, currently undergoing chemotherapy treatments, hypertension, and history of CVA, which was diagnosed in 2018, who presents to the hospital with complaints of altered mental status and aphasia. Her presenting symptoms have resolved. She has no complaints this morning. She denies any chest pain or shortness of breath. No nausea or vomiting. Her appetite is good. No complaints to me today. OBJECTIVE: VITAL SIGNS: Blood pressure 171/86, pulse is 76, O2 saturation is 96% on room air, respirations 16, and the patient is afebrile 97.8. GENERAL: The patient is a moderately obese female, resting comfortably in bed, in no acute distress. CV: S1 and S2. Regular rate and rhythm. No appreciable murmurs, rubs, or gallops, LUNGS: Regular respiratory rate and pattern, overall clear. No wheezes noted. ABDOMEN: Positive bowel sounds. Soft and nontender. EXTREMITIES: No edema. Warm and well perfused. SKIN: Warm and dry. No rashes. NEUROLOGIC: The patient is awake and oriented x3. LABORATORY DATA: Labs from September 14, 2018; hemoglobin 11.1, hematocrit 32, and platelet count is 170. Potassium 4.6, chloride 109, creatinine 0.75, GFR greater than 90, LDL 122, HDL 44, and total cholesterol 178. ASSESSMENT: 1. Altered mental status and aphasia at presentations, consistent with transient ischemic attack, resolved. 2. Chronic total occlusion of the left internal carotid artery per CTA consistent with previous CTA in 2018. 3. History of CVA in 2018. 4. Lung cancer, under going chemotherapy. 5. Hypertension, uncontrolled. PLAN: Neurology is requesting CV Surgery evaluation for the patient's occluded artery; however, the patient was not deemed to be a surgical candidate in the past secondary to 100% occlusion. In any case, her blood pressure is uncontrolled, and we will add carvedilol and titrate up. She will continue statin and aspirin. She is not currently on Plavix, and dual anti-platelet therapy may be appropriate in this patient given her carotid artery stenosis and cerebrovascular accident history, for optimal medical therapy if there are no contra- indications. Further recommendations based on hospital course. She will continue to titrate blood pressure medicines for better control. This case has been discussed with Dr. Vaughn, who also discussed the case with Dr. Miller. Job ID: [id number] [id number]
--- NOTE | 2018-09-15 18:48 | PRG ---
DATE OF SERVICE: 09/15/2018 CHIEF COMPLAINT: Episodes of inability to talk. INTERVAL HISTORY: The patient has not had any further episodes since being admitted. At this time, she is asymptomatic. WORKUP: Repeat CT angiogram shows abnormal ICA with chronic occlusion of the left ICA and right M1 segments, and brain MRI performed yesterday did not show any acute infarct, but she has chronic microvascular lesions. PHYSICAL EXAMINATION: VITAL SIGNS: Blood pressure 189/85, temperature 98.4, pulse 82, respiratory rate 24. GENERAL APPEARANCE: Well-built, well-nourished lady who is comfortable. NEUROLOGIC: Strength is 5/5 in upper and lower extremities. Cranial nerves, no facial asymmetry. Normal extraocular movements. IMPRESSION: The patient is a 57-year-old lady with chronic internal carotid artery occlusion, but she has had multiple episodes of aphasia and difficulty with her speech. She also has lung cancer. Her examination shows what is normal today. RECOMMENDATIONS: Please consult Vascular Surgery to make sure this ICA occlusion does not need any acute intervention. She can be discharged after vascular surgical evaluation. Please call if you have any further questions. Job ID: [id number]
[2018-09-15] MEDS ORDERED: Gabapentin 300 MG CAP PO SCH (21:00)
[2018-09-15] MEDS ORDERED: Atorvastatin Calcium 40 MG TAB PO SCH (21:00)
== END 2018-09-15 18:33 | disposition home or self-care (01) ==
LOC: ERS 16:16 → 2SW 18:29
PROVIDERS: ADMIT Emergency Medicine; ATTEND Emergency Medicine
DX: G45.9 Transient cerebral ischemic attack, unspecified (principal); E11.9 Type 2 diabetes mellitus without complications; I10 Essential (primary) hypertension; N17.9 Acute kidney failure, unspecified; C34.92 Malignant neoplasm of unspecified part of left bronchus or lung; I69.351 Hemiplegia and hemiparesis following cerebral infarction affecting right dominant side; Z86.718 Personal history of other venous thrombosis and embolism; Z87.891 Personal history of nicotine dependence; Z79.82 Long term (current) use of aspirin; Z79.84 Long term (current) use of oral hypoglycemic drugs; Z79.899 Other long term (current) drug therapy
CPT/HCPCS: 70450; 70496; 70498; 70551; 80048; 80053; 80061; 81001; 82962 ×3; 84484; 85025 ×2; 87086; 93005; 93306; 93880; 96360; 96361 ×2; 96372 ×2; 99285; G0378 ×2; 36415; 36416; J1650; Q0163; Q9966

== ENCOUNTER 2018-09-26 13:04 | Day surgery (SDC) | payer MEDICARE, MEDICAID ==
[2018-09-26] MEDS ORDERED: Sodium Chloride 0.9% 30 ML ONE (13:22)
[2018-09-26 15:24] VITALS: BP 131/84; TEMP 98.2
== END 2018-09-26 16:12 | disposition home or self-care (01) ==
LOC: ONC/OP 13:04
PROVIDERS: ATTEND Internal Medicine Hematology & Oncology
DX: Z51.12 Encounter for antineoplastic immunotherapy (principal); C34.82 Malignant neoplasm of overlapping sites of left bronchus and lung
CPT/HCPCS: 96413; C9492; J1642; J3490; J9173

== ENCOUNTER 2018-10-09 08:27 | Outpatient (CLI) | payer MEDICARE, MEDICAID ==
--- NOTE | 2018-10-09 09:57 | CT ---
CT CHEST WITH CONTRAST CLINICAL INDICATION: Lung cancer. COMPARISON: PET CT exam on 04/25/[address] angiogram thorax on 12/10/2017. FINDINGS: Vessels: Prominent vascular calcifications are again seen in the coronary arteries as well as involvi ng the thoracic aorta. The thoracic aorta is normal in caliber. A right subclavian Mediport catheter is again noted in place. Lungs: There are increased interstitial densities seen in the left perihilar region posteriorly at th e level of the mid lung zone. No discrete pulmonary nodule or mass is seen in the lungs bilaterally. Atelectasis is present in the lingula. The mass in the left hilar region on CTA on 2017 is significantly decreased in size. There is persistent small amount of soft tissue density seen in the left hilar region likely related to residual mass. Largest area of soft tissue density me asures 11 mm x 9 mm. Pleura: No pleural effusion is seen. There is slight pleural thickening at the left posterolateral as pect of the left mid lung zone. Mediastinum: No enlarged lymph nodes are seen by CT size criteria. Thyroid gland: Normal CT appearance. Osseous structures: No lytic or sclerotic osseous lesions are seen. Chest wall: No abnormality visualized. Upper abdomen: Within normal limits. No enlarged lymph nodes are seen in the visualized upper abdomen . IMPRESSION: 1. Decreased size of the left hilar mass with small amount residual soft tissue density present. This is probably is similar to the PET CT scan exam on 04/25/2018, but given the lack of intravenous contrast on the PET CT exam, this is difficult to directly compare. 2. Increased interstitial densities as well as more patchy linear density seen within the left perihi lar location predominantly posteriorly which may be related to posttreatment changes or less likely infectious process. 3. No discrete pulmonary nodule or mass is seen, and there is no evidence of lymphadenopathy. 4. Vascular calcifications.
[2018-10-09] MEDS ORDERED: ISOVUE-370 76%-LOCM 1 ML ONE (11:44)
== END 2018-10-09 08:28 | disposition home or self-care (01) ==
LOC: BICCT 08:27
PROVIDERS: ATTEND Internal Medicine Hematology & Oncology
DX: C34.82 Malignant neoplasm of overlapping sites of left bronchus and lung (principal); I70.0 Atherosclerosis of aorta; R91.8 Other nonspecific abnormal finding of lung field
CPT/HCPCS: 71260; Q9966

== ENCOUNTER 2018-10-10 12:19 | Day surgery (SDC) | payer MEDICARE, MEDICAID ==
[2018-10-10] MEDS ORDERED: Sodium Chloride 0.9% 30 ML ONE ×2 (12:25→12:41)
[2018-10-10 12:41] VITALS: BP 185/84; TEMP 97.7
[2018-10-10] MEDS ORDERED: DURVALUMAB IV SCH (12:45)
[2018-10-10] MEDS ORDERED: SODIUM CHLORIDE 0.9% IV SCH (12:45)
== END 2018-10-10 14:04 | disposition home or self-care (01) ==
LOC: ONC/OP 12:19
PROVIDERS: ATTEND Internal Medicine Hematology & Oncology
DX: Z51.12 Encounter for antineoplastic immunotherapy (principal); C34.82 Malignant neoplasm of overlapping sites of left bronchus and lung; Z88.5 Allergy status to narcotic agent
CPT/HCPCS: 36415; 80053; 82248; 83615; 84100; 84436; 84443; 84550; 96413; C9492; J1642; J3490; J9173

== ENCOUNTER 2018-10-24 13:22 | Day surgery (SDC) | payer MEDICARE, MEDICAID ==
[2018-10-24] MEDS ORDERED: Sodium Chloride 0.9% 30 ML ONE (13:27)
[2018-10-24 14:10] VITALS: BP 138/78; TEMP 98.6
== END 2018-10-24 16:32 | disposition home or self-care (01) ==
LOC: ONC/OP 13:22
PROVIDERS: ATTEND Internal Medicine Hematology & Oncology
DX: Z51.11 Encounter for antineoplastic chemotherapy (principal); C34.82 Malignant neoplasm of overlapping sites of left bronchus and lung; Z88.6 Allergy status to analgesic agent
CPT/HCPCS: 96413; C9492; J1642; J3490; J9173

== ENCOUNTER 2018-11-06 10:22 | Emergency (ER) | payer MEDICARE, MEDICAID ==
--- NOTE | 2018-11-06 11:03 | RAD ---
XR Chest 1 View Portable HISTORY: Cough COMPARISON: 12/26/2017 FINDINGS: The heart size is normal. Right subclavian Port-A-Cath remains in place. The lungs are well expanded without lobar consolidation, pneumothorax or pleural effusions. There is linear scarring in the left midlung. There is mild left perihilar infiltrate which may be due to acute or chronic fin dings.
[2018-11-06] MEDS ORDERED: Meclizine HCl 25 MG TAB ONE (11:51)
[2018-11-06 11:55] LABS: #Eosinphils 0.1 thou/uL (0.0-0.7); #Lymphocytes 1.3 thou/uL (1.20-3.40); #Monocytes 0.5 thou/uL (0.11-0.59); #Neutrophils 2.4 thou/uL (1.40-6.50); %Basophils 0.5 % (0.0-1.0); %Eosinophils 2.4 % (0.0-10.0); %Lymphocytes 30.1 % (21.0-51.0); %Monocytes 11.5 % (0.0-10.0); %Neutrophils 55.6 % (42.0-75.0); Hemoglobin 13.4 g/dL (12.0-16.0); Mean Corpuscular HGB CONC 33.9 g/dL (32.0-36.0); Mean Corpuscular Hemoglobin 28.3 pg (27.0-31.0); Mean Corpuscular Volume 83.4 fL (78.0-98.0); Mean Platelet Volume 9.1 fL (7.4-10.4); Platelet Count 173 thou/uL (130-400); RBC Distribution Width 13.7 % (11.5-14.5); Red Blood Cell (RBC) Count 4.76 mill/uL (4.20-5.40); White Blood Cell (WBC) Count 4.4 thou/uL (4.8-10.8)
[2018-11-06 12:20] LABS: ALT (SGPT) 61 U/L (8-55); AST (SGOT) 30 U/L (5-34); Albumin 3.9 g/dL (3.5-5.0); Alkaline Phosphatase 56 U/L (40-150); Anion Gap 12 mmol/L (10-20); BUN (Urea Nitrogen) 23 mg/dL (9.8-20.1); Bilirubin, Total 0.4 mg/dL (0.2-1.2); CK (CPK) 111 U/L (29-168); Calc. Creatinine Clearance 0 mL/min (70-130); Calcium 11.5 mg/dL (7.8-10.44); Carbon Dioxide 24 mmol/L (22-29); Chloride 107 mmol/L (98-107); Estimated GFR-MDRD 87; Globulin 3.3 g/dL (2.4-3.5); Glucose 98 mg/dL (70-105); Protein, Total 7.2 g/dL (6.0-8.3); Sodium 139 mmol/L (136-145)
--- NOTE | 2018-11-09 11:56 | EKG ---
Test Reason : Blood Pressure : / mmHG Vent. Rate : 104 BPM Atrial Rate : 104 BPM P-R Int : 134 ms QRS Dur : 080 ms QT Int : 354 ms P-R-T Axes : 061 055 087 degrees QTc Int : 465 ms Sinus tachycardia Otherwise normal ECG Confirmed by SIMBA ALFREDO, STEFAN Otoole ([id number]), design editor CITLALLI ALEGRIA ([id number]) on 11/09/2018 11:56:20 AM Referred By: Confirmed By:STEFAN COTTRELL MD
== END 2018-11-06 13:48 | disposition home or self-care (01) ==
LOC: ERS 10:22
DX: R42 Dizziness and giddiness (principal); E11.9 Type 2 diabetes mellitus without complications; I10 Essential (primary) hypertension; Z87.891 Personal history of nicotine dependence; Z79.84 Long term (current) use of oral hypoglycemic drugs; Z79.82 Long term (current) use of aspirin; Z79.899 Other long term (current) drug therapy
CPT/HCPCS: 36415; 71045; 80053; 82550; 84484; 85025; 93005; 96360; J8499

== ENCOUNTER 2018-11-07 14:46 | Day surgery (SDC) | payer MEDICARE, MEDICAID ==
[2018-11-07] MEDS ORDERED: Sodium Chloride 0.9% 30 ML ONE (14:52)
[2018-11-07 15:13] VITALS: BP 140/70; TEMP 98.5
[2018-11-07] MEDS ORDERED: SODIUM CHLORIDE 0.9% IV SCH (15:45)
[2018-11-07] MEDS ORDERED: DURVALUMAB IV SCH (15:45)
== END 2018-11-07 16:47 | disposition home or self-care (01) ==
LOC: ONC/OP 14:46
PROVIDERS: ATTEND Internal Medicine Hematology & Oncology
DX: Z51.12 Encounter for antineoplastic immunotherapy (principal); C34.82 Malignant neoplasm of overlapping sites of left bronchus and lung; Z88.5 Allergy status to narcotic agent
CPT/HCPCS: 36415; 80053; 82248; 83615; 84100; 84436; 84443; 84550; 96413; C9492; J1642; J3490

== ENCOUNTER 2018-11-20 13:25 | Day surgery (SDC) | payer MEDICARE, MEDICAID ==
[2018-11-20] MEDS ORDERED: Sodium Chloride 0.9% 20 ML ONE (13:32)
[2018-11-20] MEDS ORDERED: DURVALUMAB IV SCH (13:45)
[2018-11-20] MEDS ORDERED: SODIUM CHLORIDE 0.9% IV SCH (13:45)
[2018-11-20 15:23] VITALS: BP 141/80; TEMP 99
== END 2018-11-20 15:26 | disposition home or self-care (01) ==
LOC: ONC/OP 13:25
PROVIDERS: ATTEND Internal Medicine Hematology & Oncology
DX: Z51.12 Encounter for antineoplastic immunotherapy (principal); C34.82 Malignant neoplasm of overlapping sites of left bronchus and lung; Z88.5 Allergy status to narcotic agent
CPT/HCPCS: 96413; J1642; J3490; J9173

== ENCOUNTER 2018-12-05 11:30 | Day surgery (SDC) | payer MEDICARE, MEDICAID ==
[2018-12-05] MEDS ORDERED: Sodium Chloride 0.9% 20 ML ONE (12:31)
[2018-12-05 15:52] VITALS: BP 139/69; TEMP 98.7
== END 2018-12-05 15:52 | disposition home or self-care (01) ==
LOC: ONC/OP 11:30
PROVIDERS: ATTEND Internal Medicine Hematology & Oncology
DX: Z51.12 Encounter for antineoplastic immunotherapy (principal); C34.82 Malignant neoplasm of overlapping sites of left bronchus and lung; Z88.5 Allergy status to narcotic agent
CPT/HCPCS: 36415; 80053; 82248; 83615; 84100; 84436; 84443; 84550; 96413; J1642; J3490; J9173

== ENCOUNTER 2018-12-19 12:56 | Day surgery (SDC) | payer MEDICARE, MEDICAID ==
[2018-12-19] MEDS ORDERED: Sodium Chloride 0.9% 20 ML ONE (13:16)
[2018-12-19 13:20] VITALS: BP 148/66; TEMP 98.5
== END 2018-12-19 14:56 | disposition home or self-care (01) ==
LOC: ONC/OP 12:56
PROVIDERS: ATTEND Internal Medicine Hematology & Oncology
DX: Z51.11 Encounter for antineoplastic chemotherapy (principal); C34.82 Malignant neoplasm of overlapping sites of left bronchus and lung; Z88.5 Allergy status to narcotic agent
CPT/HCPCS: 96413; J1642; J3490; J9173

== ENCOUNTER 2019-01-02 13:48 | Day surgery (SDC) | payer MEDICARE, MEDICAID ==
[2019-01-02 15:11] VITALS: BP 156/69; TEMP 98.3
== END 2019-01-02 15:40 | disposition home or self-care (01) ==
LOC: ONC/OP 13:48
PROVIDERS: ATTEND Internal Medicine Hematology & Oncology
DX: Z51.12 Encounter for antineoplastic immunotherapy (principal); C34.82 Malignant neoplasm of overlapping sites of left bronchus and lung; Z88.5 Allergy status to narcotic agent; Z79.899 Other long term (current) drug therapy
CPT/HCPCS: 36415; 80053; 82248; 83615; 84100; 84436; 84443; 84550; 96413; J3490; J9173

== ENCOUNTER 2019-01-16 12:57 | Day surgery (SDC) | payer MEDICARE, MEDICAID ==
[~2019-01-16 12:57] MED LIST changes: +DURVALUMAB 500 MG, DURVALUMAB 240 MG in Sodium Chloride 0.9% 100 ML IV SCH
[2019-01-16] MEDS ORDERED: Sodium Chloride 0.9% 20 ML ONE (15:01)
== END 2019-01-16 16:59 | disposition home or self-care (01) ==
LOC: ONC/OP 12:57
PROVIDERS: ATTEND Internal Medicine Hematology & Oncology
DX: Z51.12 Encounter for antineoplastic immunotherapy (principal); C34.82 Malignant neoplasm of overlapping sites of left bronchus and lung; Z88.5 Allergy status to narcotic agent
CPT/HCPCS: 96413; J1642; J3490; J9173

== ENCOUNTER 2019-01-30 10:48 | Day surgery (SDC) | payer MEDICARE, MEDICAID ==
[~2019-01-30 10:48] MED LIST changes: -DURVALUMAB IV SCH; -SODIUM CHLORIDE 0.9% IV SCH
[2019-01-30 10:54] VITALS: BP 149/75; TEMP 98.3
[2019-01-30] MEDS ORDERED: Sodium Chloride 0.9% 20 ML ONE (10:58)
== END 2019-01-30 12:31 | disposition home or self-care (01) ==
LOC: ONC/OP 10:48
PROVIDERS: ATTEND Internal Medicine Hematology & Oncology
DX: Z51.12 Encounter for antineoplastic immunotherapy (principal); C34.82 Malignant neoplasm of overlapping sites of left bronchus and lung; I69.351 Hemiplegia and hemiparesis following cerebral infarction affecting right dominant side; E11.9 Type 2 diabetes mellitus without complications; E78.00 Pure hypercholesterolemia, unspecified; Z87.891 Personal history of nicotine dependence; Z79.84 Long term (current) use of oral hypoglycemic drugs; Z79.899 Other long term (current) drug therapy; Z88.5 Allergy status to narcotic agent
CPT/HCPCS: 80053; 82248; 83615; 84100; 84436; 84443; 84550; 96413; J1642; J3490; J9173

== ENCOUNTER 2019-02-13 09:35 | Day surgery (SDC) | payer MEDICARE, MEDICAID ==
[~2019-02-13 09:35] MED LIST changes: +DURVALUMAB IV SCH; +SODIUM CHLORIDE 0.9% IV SCH
[2019-02-13 12:14] VITALS: BP 128/62; TEMP 98.2
[2019-02-13] MEDS ORDERED: Prevnar 13-Val Conj/PF 0.5 ML SYRINGE IM ONE (12:15)
== END 2019-02-13 12:48 | disposition home or self-care (01) ==
LOC: ONC/OP 09:35
PROVIDERS: ATTEND Internal Medicine Hematology & Oncology
DX: Z51.12 Encounter for antineoplastic immunotherapy (principal); C34.82 Malignant neoplasm of overlapping sites of left bronchus and lung; Z88.5 Allergy status to narcotic agent
CPT/HCPCS: 96413; J3490; J9173

== ENCOUNTER 2019-02-27 14:20 | Day surgery (SDC) | payer MEDICARE, MEDICAID ==
[~2019-02-27 14:20] MED LIST changes: -DURVALUMAB 500 MG, DURVALUMAB 240 MG in Sodium Chloride 0.9% 100 ML IV SCH
[2019-02-27] MEDS ORDERED: Sodium Chloride 0.9% 20 ML ONE (14:54)
[2019-02-27 15:02] VITALS: BP 119/64; TEMP 98.4
== END 2019-02-27 15:54 | disposition home or self-care (01) ==
LOC: ONC/OP 14:20
PROVIDERS: ATTEND Internal Medicine Hematology & Oncology
DX: Z51.12 Encounter for antineoplastic immunotherapy (principal); C34.82 Malignant neoplasm of overlapping sites of left bronchus and lung; Z88.5 Allergy status to narcotic agent
CPT/HCPCS: 36415; 80053; 82248; 83615; 84100; 84436; 84443; 84550; 96413; J1642; J3490; J9173

== ENCOUNTER 2019-03-13 09:19 | Day surgery (SDC) | payer MEDICARE, MEDICAID ==
[~2019-03-13 09:19] MED LIST changes: +DURVALUMAB 500 MG, DURVALUMAB 240 MG in Sodium Chloride 0.9% 100 ML IV SCH
[2019-03-13] MEDS ORDERED: Sodium Chloride 0.9% 20 ML ONE ×2 (09:26→09:29)
[2019-03-13 09:38] VITALS: BP 159/79; TEMP 98.2
== END 2019-03-13 14:06 | disposition home or self-care (01) ==
LOC: ONC/OP 09:19
PROVIDERS: ATTEND Internal Medicine Hematology & Oncology
DX: Z51.12 Encounter for antineoplastic immunotherapy (principal); C34.82 Malignant neoplasm of overlapping sites of left bronchus and lung; Z88.5 Allergy status to narcotic agent
CPT/HCPCS: 96413; J1642; J3490; J9173

== ENCOUNTER 2019-03-27 10:32 | Day surgery (SDC) | payer MEDICARE, MEDICAID ==
[2019-03-27] MEDS ORDERED: Sodium Chloride 0.9% 20 ML ONE (10:37)
[2019-03-27 10:40] VITALS: BP 133/77; TEMP 98.3
== END 2019-03-27 12:52 | disposition home or self-care (01) ==
LOC: ONC/OP 10:32
PROVIDERS: ATTEND Internal Medicine Hematology & Oncology
DX: Z51.12 Encounter for antineoplastic immunotherapy (principal); C34.82 Malignant neoplasm of overlapping sites of left bronchus and lung; Z88.5 Allergy status to narcotic agent
CPT/HCPCS: 80053; 82248; 83615; 84100; 84436; 84443; 84550; 96413; J1642; J3490; J9173

== ENCOUNTER 2019-04-10 10:14 | Day surgery (SDC) | payer MEDICARE, MEDICAID ==
[~2019-04-10 10:14] MED LIST changes: -DURVALUMAB IV SCH; -SODIUM CHLORIDE 0.9% IV SCH
[2019-04-10] MEDS ORDERED: Sodium Chloride 0.9% 20 ML ONE (10:16)
[2019-04-10 10:27] VITALS: BP 145/73; TEMP 98.9
== END 2019-04-10 12:16 | disposition home or self-care (01) ==
LOC: ONC/OP 10:14
PROVIDERS: ATTEND Internal Medicine Hematology & Oncology
DX: Z51.12 Encounter for antineoplastic immunotherapy (principal); C34.82 Malignant neoplasm of overlapping sites of left bronchus and lung; Z88.5 Allergy status to narcotic agent
CPT/HCPCS: 96413; J1642; J3490; J9173

== ENCOUNTER 2019-04-15 11:09 | Inpatient (IN) | payer MEDICARE, MEDICAID ==
[2019-04-15] MEDS ORDERED: Acetaminophen 500 MG TAB ONE (11:49)
[2019-04-15 12:26] LABS: Hemoglobin 12.1 g/dL (12.0-16.0); Mean Corpuscular HGB CONC 34.6 g/dL (32.0-36.0); Mean Corpuscular Hemoglobin 28.4 pg (27.0-31.0); Mean Corpuscular Volume 82.1 fL (78.0-98.0); Mean Platelet Volume 9.7 fL (7.4-10.4); Platelet Count 141 thou/uL (130-400); Red Blood Cell (RBC) Count 4.26 mill/uL (4.20-5.40); White Blood Cell (WBC) Count 4.4 thou/uL (4.8-10.8)
[2019-04-15 12:52] LABS: Band 14 % (5-11); Eosinophils 4 % (0-10); Lymphocytes 11 % (21-51); MDiff Complete? YES; Monocytes 17 % (0-10); Neutrophil 53 % (42-75); Platelet Morphology Comment Appears Adequate; RBC Morphology Normal; Reactive Lymphocytes 1 % (0-10)
[2019-04-15 12:53] LABS: ALT (SGPT) 41 U/L (8-55); AST (SGOT) 28 U/L (5-34); Albumin 3.7 g/dL (3.5-5.0); Alkaline Phosphatase 58 U/L (40-110); Anion Gap 9 mmol/L (10-20); BUN (Urea Nitrogen) 11 mg/dL (9.8-20.1); Bilirubin, Total 0.5 mg/dL (0.2-1.2); CK (CPK) 136 U/L (29-168); Calc. Creatinine Clearance 0 mL/min (70-130); Calcium 10.3 mg/dL (7.8-10.44); Carbon Dioxide 25 mmol/L (22-29); Chloride 108 mmol/L (98-107); Estimated GFR-MDRD Greater than 90; Globulin 2.9 g/dL (2.4-3.5); Glucose 104 mg/dL (70-105); Potassium 4.2 mmol/L (3.5-5.1); Protein, Total 6.6 g/dL (6.0-8.3); Sodium 138 mmol/L (136-145)
--- NOTE | 2019-04-15 12:53 | RAD ---
Chest AP view INDICATION: Shortness of breath and headache COMPARISON: November 06, 2018 FINDINGS: Lungs:There is improved aeration left midlung. Cardiac silhouette:Mild cardiomegaly is stable Pulmonary vasculature:Normal Pleural spaces:No pleural effusion or pneumothorax is demonstrated. Upper abdomen:No abnormality seen. Osseous structures: No acute osseous abnormality. Additional findings:Right chest wall port is unchanged. IMPRESSION: No acute cardiopulmonary abnormality.
--- NOTE | 2019-04-15 12:54 | CT ---
CT ANGIOGRAM THORAX WITH IV CONTRAST AND 3-D RECONSTRUCTIONS CLINICAL INDICATION: Chest pain and shortness of breath as well as cough. History of lung cancer. COMPARISON: CT thorax on 10/09/2018. FINDINGS: Pulmonary arteries: No filling defects are seen in the pulmonary arteries to suggest a pulmonary embo cristian. Aorta: Vascular calcifications and atherosclerotic plaque is again seen in the thoracic and visualize d proximal abdominal aorta. The thoracic and visualized proximal abdominal aorta are normal in caliber without evidence of an aortic dissection. Prominent atherosclerotic plaque is seen involving the proximal left common carotid artery with mild degree of narrowing. There is also mild to moderate narrowing involving the origin of the left subclavian artery. Lungs: The interstitial opacities in the left lower lobe and in the region of the lingula are again s een. The masslike parenchymal density in the left hilar region measures approximately 4 cm x 3.1 cm which has enlarged when compared to the prior exam where there was a smaller nodular density present measuring 1.1 cm in maximal dimension. There is resultant narrowing of the left lower lobe bronchus. There is slightly greater parenchymal density in the left lower lobe compared to the prior exam; which could be related to postobstructive changes The right lung is clear. No discrete pulmonary nodule or mass is seen on the right. There is no evide nce of a pleural effusion bilaterally. Mediastinum: Trace pericardial effusion is present. No enlarged mediastinal lymph nodes are seen. The re is a mildly prominent right hilar lymph node measuring 10 mm in greatest dimension. Nonspecific and nonenlarged precarinal lymph nodes are visualized. Thyroid gland: Grossly normal in appearance where visualized. Right subclavian Mediport catheter scar ins in place. Osseous structures: No acute process. Chest wall: No abnormality visualized. Upper abdomen: Within normal limits for phase of imaging. IMPRESSION: 1. Interval enlargement of left hilar mass which measures approximately 4 cm x 3.1 cm with previous m easurement of 1.1 cm in maximal dimension. There is been mild interval increase in patchy parenchymal densities with persistent interstitial opacities also seen in the left lower lobe which c ould be related to postobstructive type changes or postobstructive pneumonitis. Associated lymphangitic spread of tumor cannot be entirely excluded. 2. Narrowing of the left lower lobe bronchus due to left hilar mass. 3. Trace pericardial effusion. 4. No CT evidence of a pulmonary embolus.
[2019-04-15] MEDS ORDERED: Iopamidol 370 76% 100 ML VIAL ONE (12:57)
[2019-04-15] MEDS ORDERED: Senokot S 8.6-50 MG TAB PO PRN (14:30)
[2019-04-15] MEDS ORDERED: Sodium Chloride 0.9% 1,000 ML IV SCH (14:30)
[2019-04-15] MEDS ORDERED: Ondansetron ODT 4 MG TAB PO PRN (14:30)
[2019-04-15 19:20] VITALS: BMI 34.0
[2019-04-15] MEDS: Vancomycin HCl 1.75 GM in Sodium Chloride 0.9% 500 ML IVPB SCH (19:29)
[2019-04-15] MEDS: Acetaminophen 325 MG TAB PO PRN (19:29)
[2019-04-15] MEDS: Guaifenesin DM 100-10/5 ML UDCUP PO PRN (20:06)
[2019-04-15] MEDS ORDERED: Vancomycin HCl 1 GM in Sodium Chloride 0.9% 250 ML 300 ML IVPB SCH (21:00)
[2019-04-15] MEDS: Piperacillin/Tazobactam 4.5 GM in Sodium Chloride 0.9% 100 ML IVPB SCH (21:10)
[2019-04-15] MEDS: Gabapentin 300 MG CAP PO SCH (21:11)
[2019-04-15] MEDS: Lisinopril 10 MG TAB PO SCH (21:11)
--- NOTE | 2019-04-15 22:02 | HP ---
CONSULTATIONS CALLED: Dr. Nikia Lawrence, [facility] in [place]. 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 The patient follows up with Dr. Lawrence as her primary oncologist. On my evaluation, according to the patient, the patient started to have symptomatology since 2 days associated with cough and shortness of breath, does not use oxygen at home, felt as if she was wheezing. Initially, she tried to treat herself with [id number] medications, but unfortunately, with her nonresolving symptoms, the patient presented to the emergency room today. Evaluation in the ER as described above, preliminarily diagnosed the patient with sepsis without any evidence of septic shock and was given IV hydration along with doing a septic workup of initial blood culture sensitivities as well as sputum culture sensitivities, after which the patient received prophylactic vancomycin and Zosyn. No other complaints of chest pain, abdominal pain. The patient did have fever of 100.1 degrees Fahrenheit with chills without any associated rigors, nausea, vomiting, diaphoresis, blurring of vision, tingling, numbness, burning, micturition, constipation, claudication, anxiety, depression, hematuria, hematochezia, cough, expectoration, syncope, seizures, paroxysmal nocturnal dyspnea, or orthopnea at this point of time. PAST MEDICAL HISTORY: 1. Diabetes mellitus type 2, on metformin. 2. Benign essential hypertension. 3. Stage III adenocarcinoma of the lung, on chemotherapy and radiation therapy. 4. History of previous DVTs. 5. History of TIAs. ALLERGIES: THE PATIENT IS ALLERGIC TO CODEINE. FAMILY HISTORY: No history of coronary artery disease or hypertension. PAST SURGICAL HISTORY: Includes positive for left carotid endarterectomy, bilateral leg surgery for blood clots. Surgical history of partial hysterectomy, left neck artery surgery, and recent lung biopsy. SOCIAL HISTORY: The patient quit smoking one year ago. Does not abuse any alcohol or recreational drugs. MEDICATIONS AT HOME: 1. Aspirin 81 mg daily. 2. Atorvastatin 40 mg daily. 3. Gabapentin 900 mg at bedtime. 4. Lisinopril 10 mg b.i.d. 5. Metformin 500 mg daily. 6. Anoro Ellipta 1 puff daily. 7. Ventolin HFA 1 inhalation b.i.d. REVIEW OF SYSTEMS: Except as documented all systems reviewed and negative. PHYSICAL EXAMINATION: GENERAL: This is a 58-year-old female lying in her hospital bed, complaining of shortness of breath and cough with some sinus tachycardia. HEENT: Atraumatic, normocephalic. NECK: Supple. No bruit. No lymphadenopathy. CV: S1, S2. Sinus tachycardia noted. CHEST: Bilateral air entry present. Basilar rhonchi noted. ABDOMEN: Soft, nontender. Bowel sounds are present. No organomegaly. EXTREMITIES: No cyanosis. Nonicteric. No pallor. 1+ edema noted. NEUROLOGIC: The patient is alert, oriented x3. No focal motor or sensory deficits noted. HEME: No ecchymosis or petechiae. PSYCH: No depression or anxiety. LABORATORY DATA: WBC of 44.4, hemoglobin of 12.1, hematocrit of 35.0, platelets are 141. Sodium 138, potassium 4.2, chloride 108, carbon dioxide 25, anion gap is 9, BUN 11, creatinine 0.71, glucose 104. Lactic acid is 1.0. AST 28, ALT 41. Troponin less than 0.01. Serum protein 6.6. She has an airway, which is clear. DIAGNOSTIC DATA: Two sets of blood culture and a sputum culture sensitivities have been sent. CTA of the chest shows interval enlargement of left hilar mass, which measures approximately 4 cm to 3.1 cm with previous measurements of 1.1 cm in maximal dimension. There has been mild interval increase in patchy parenchymal densities with persistent interstitial opacities also seen in the left lower lobe, which could be related to postobstructive pneumonia, pneumonitis, narrowing of the left lower lobe bronchus to the left hilar mass was noted. Trace pericardial effusion. No CT evidence of pulmonary embolism noted. ASSESSMENT: 1. Healthcare-associated pneumonia present on admission. The patient is currently on IV Zosyn and vancomycin. Blood culture sensitivities and sputum culture sensitivities have been ordered. We will follow official evaluation. Also, the patient states she has not been given a flu shot until this point of time, maybe on discharge we can provide one. 2. Stage III adenocarcinoma of the left lung with the patient currently on chemotherapy as well as radiation therapy, chemotherapy with Carbo, Taxol. 3. Benign essential hypertension. 4. Diabetes mellitus type 2. We will hold the patient's metformin and start the patient on sliding scale insulin protocol with hypoglycemia precautions. 5. History of carotid artery stenosis, status post endarterectomy. 6. History of tobacco abuse. The patient quit smoking 1 year ago. 7. Leukopenia likely secondary to recent chemotherapy, the patient is not neutropenic though. PLAN: Discussed in detail about the diagnosis, treatment, and followup with the patient. I have advised the patient about IV antibiotic therapy, culture sensitivity evaluations. I have consulted Dr. Nikia Lawrence, oncologist, at this point of time for recommendations in regard to the patient's leukopenia, which would be more supportive at this point of time and I have started the patient on IV hydration along with putting her on telemetry status. The patient's lactic acid levels are normal, though she does have sepsis without any septic shock. Discharge planning will depend on further hospital course. High risk patient with advanced directives being a full code. Prognosis is guarded. Job ID: [id number]
[2019-04-16] MEDS: Piperacillin/Tazobactam 4.5 GM in Sodium Chloride 0.9% 100 ML IVPB SCH ×5 (00:47→23:06)
[2019-04-16] MEDS: Acetaminophen 325 MG TAB PO PRN ×2 (01:30→09:13)
[2019-04-16] MEDS: Guaifenesin DM 100-10/5 ML UDCUP PO PRN (01:30)
[2019-04-16] MEDS ORDERED: hydrALAZINE 20 MG/ML VIAL SLOW IVP SCH (03:45)
[2019-04-16 05:16] LABS: ALT (SGPT) 34 U/L (8-55); AST (SGOT) 27 U/L (5-34); Albumin 3.3 g/dL (3.5-5.0); Alkaline Phosphatase 51 U/L (40-110); Anion Gap 11 mmol/L (10-20); BUN (Urea Nitrogen) 8 mg/dL (9.8-20.1); Bilirubin, Total 0.6 mg/dL (0.2-1.2); Calc. Creatinine Clearance 108 mL/min (70-130); Calcium 9.6 mg/dL (7.8-10.44); Carbon Dioxide 23 mmol/L (22-29); Chloride 109 mmol/L (98-107); Estimated GFR-MDRD Greater than 90; Globulin 3.2 g/dL (2.4-3.5); Glucose 104 mg/dL (70-105); Potassium 3.7 mmol/L (3.5-5.1); Protein, Total 6.5 g/dL (6.0-8.3); Sodium 139 mmol/L (136-145)
[2019-04-16 05:37] LABS: Band 17 % (5-11); Eosinophils 1 % (0-10); Hemoglobin 11.4 g/dL (12.0-16.0); Lymphocytes 16 % (21-51); MDiff Complete? YES; Mean Corpuscular HGB CONC 34.4 g/dL (32.0-36.0); Mean Corpuscular Hemoglobin 28.1 pg (27.0-31.0); Mean Corpuscular Volume 81.9 fL (78.0-98.0); Mean Platelet Volume 9.4 fL (7.4-10.4); Monocytes 16 % (0-10); Neutrophil 50 % (42-75); Platelet Count 133 thou/uL (130-400); RBC Distribution Width 12.9 % (11.5-14.5); Red Blood Cell (RBC) Count 4.06 mill/uL (4.20-5.40); White Blood Cell (WBC) Count 3.1 thou/uL (4.8-10.8)
[2019-04-16] MEDS: Vancomycin HCl 1.75 GM in Sodium Chloride 0.9% 500 ML IVPB SCH ×2 (06:04→18:27)
[2019-04-16] MEDS: Enoxaparin Sodium 40 MG/0.4 ML SYRINGE SC SCH (09:05)
[2019-04-16] MEDS: Lisinopril 10 MG TAB PO SCH ×2 (09:05→20:23)
[2019-04-16] MEDS: Sodium Chloride 0.9% 1,000 ML IV SCH (10:40)
--- NOTE | 2019-04-16 12:16 | CON ---
DATE OF CONSULTATION: REASON FOR CONSULTATION: Lung cancer. HISTORY OF PRESENT ILLNESS: Ms. Piña is a 58-year-old female, who has adenocarcinoma of the left lung. She was diagnosed in 11/2017, and underwent treatment with carboplatin, Taxol, and radiation. She was in complete remission in 04/2018, and went on maintenance Imfinzi. She will complete a year of Imfinzi next month. She had been tolerating it well with no new complaints. She came to the ER yesterday with worsening shortness of breath and cough. She underwent a CT angio of her chest. Her left hilar mass has grown and currently measures 4 by 3.1 cm compared to her last scan in September, when it measured 1.1 cm. There were some interstitial opacities in the left lower lobe, which could be pneumonitis. There was a question of lymphangitic spread. She was started on antibiotics and Solu-Medrol, and states she is feeling better this morning. She denies any chest pain. No shortness of breath. No abdominal discomfort. She is eating well. PAST MEDICAL HISTORY: 1. Stage III adenocarcinoma of the left lung. 2. History of CVA with residual right-sided weakness. 3. History of tobacco use. 4. Diabetes mellitus, 2. 5. Hypertension. 6. High cholesterol. PAST SURGICAL HISTORY: 1. Partial hysterectomy. 2. MediPort placement. 3. Lung biopsy. 4. Carotid endarterectomy. 5. Leg surgery for DVT. ALLERGIES: CODEINE. HOME MEDICATIONS: 1. Aspirin. 2. Lipitor. 3. Gabapentin. 4. Lisinopril. 5. Metformin. 6. Ellipta and Ventolin inhaler. FAMILY HISTORY: Father had unknown type of cancers. SOCIAL HISTORY: . Lives with her son. Former smoker. No alcohol or illicit drug use. REVIEW OF SYSTEMS: A 10-point review of systems is negative except for noted in HPI. PHYSICAL EXAMINATION: VITAL SIGNS: Temperature is 99, pulse is 107, respiratory rate 16, BP is 144/90, and she is 96% on room air. GENERAL: This is a well-developed, well-nourished female, in no acute distress. HEENT: Normocephalic and atraumatic. Pupils are equal and reactive to light. NECK: Supple. CV: Regular rate and rhythm. LUNGS: Clear. ABDOMEN: Soft and nontender. Bowel sounds are positive. EXTREMITIES: She has some clubbing, but no cyanosis or edema. SKIN: No rash. HEMATOLOGIC: No petechiae or purpura. NEUROLOGIC: Nonfocal. PERTINENT LABORATORY DATA AND X-RAYS: Current WBCs are 3.1, hemoglobin 11.4, hematocrit 33.3, and platelet count is 133,000, she got 50% neutrophils, 17% bands, and 16% lymphocytes. Sodium 139, potassium 3.7, chloride 109, CO2 is 8, creatinine is 0.69, and calcium is 9.6. Bilirubin 0.6, AST is 27, ALT is 34, alkaline phosphatase is 51, serum total protein 6.5, albumin 3.3, and globulin 3.2. Radiology per HPI assessment. ASSESSMENT: 1. Adenocarcinoma of the left lung with likely progression. 2. Possible pneumonia. DISCUSSION: The patient has been given antibiotics and started on IV steroids. Her Imfinzi will be discontinued. The plan is to get a PET scan in the next couple of weeks and have her follow up with Dr. Lawrence to discuss further treatment. I have discussed this with the patient. She is aware of the increase in size in her lung mass. She can be discharged home once stable and we will follow up in the clinic. Thank you for the consult. Job ID: [id number]
[2019-04-16] MEDS: methylPREDNISolone Sod Succ 40 MG VIAL IVP SCH ×3 (12:29→23:06)
[2019-04-16] MEDS ORDERED: Dextrose 5% in Water 1,000 ML IV PRN (13:45)
[2019-04-16] MEDS ORDERED: Dextrose 50% Abboject 50 ML SYRINGE SLOW IVP PRN (13:45)
[2019-04-16] MEDS ORDERED: HumaLOG 300 UNITS/3 ML VIAL SC PRN ×2 (13:45)
--- NOTE | 2019-04-16 15:59 | CON ---
DATE OF CONSULTATION: HISTORY OF PRESENT ILLNESS: Opal Piña is a 58-year-old woman, who has seen Dr. Stokes in our office before, who has seen Dr. Lawrence now for ongoing treatment for her adenocarcinoma of the left lung. She then presents to the hospital with increasing shortness of breath, cough, unresponsive to usual medication. She has received radiation. Sputum is relatively clear. She is having significant dyspnea. She can barely walk even 100 feet without getting markedly short of breath. She is a former smoker. PAST MEDICAL HISTORY: Pertinent for previous diabetes, hypertension, adenocarcinoma, and previous DVT. PAST SURGICAL HISTORY: Left carotid surgery, bilateral leg surgery, and hysterectomy. SOCIAL HISTORY: Alcohol, none. Tobacco, quit smoking about a year ago. MEDICATIONS: 1. Lipitor 40. 2. Aspirin 81. 3. Lisinopril 10. 4. Gabapentin 900. 5. Metformin 500. 6. Ventolin inhaler. 7. Anoro. ALLERGIES: CODEINE. FAMILY HISTORY: Unremarkable. REVIEW OF SYSTEMS: Ten-point negative. PHYSICAL EXAMINATION: GENERAL: On examination, she is a morbidly obese female. VITAL SIGNS: Saturations are 100% on room air, temperature 99, pulse 113, and blood pressure 140/90. CHEST: Bilateral wheezing. CARDIAC: Normal S1 and S2. No gallops. ABDOMEN: No masses. LABORATORY DATA: Creatinine is normal. White count of 3000, H and H of 11 and 33, and platelet count is normal. IMAGING DATA: Initial chest x-ray was unremarkable. No masses or infiltrates were seen. CT chest shows slightly increasing left lower lung mass, questionable infiltrate in the left base. ASSESSMENT: 1. Chronic obstructive pulmonary disease exacerbation. 2. Bronchitis. 3. Adenocarcinoma, chemoradiation. 4. Diabetes. PLAN: I have added steroids to her present neb treatment. Deescalate antibiotics once the cultures are back. We will notify Dr. Stokes. This is a 70 minutes of consultation note, 50% direct patient care. Job ID: [id number]
[2019-04-16] MEDS: Mometasone/Formoterol 120 PUFF INHALER INH SCH (18:13)
[2019-04-16] MEDS ORDERED: Labetalol HCl 100 MG/20 ML VIAL SLOW IVP PRN (19:18)
[2019-04-16] MEDS: guaiFENesin 200 MG TAB PO SCH (20:23)
[2019-04-16] MEDS: Gabapentin 300 MG CAP PO SCH (20:23)
[2019-04-16] MEDS ORDERED: FLU VACC QS2019-20(6MOS UP)/PF 60 MCG/0.5 ML SYRINGE IM ONE (21:00)
[2019-04-16] MEDS ORDERED: hydrALAZINE 20 MG/ML VIAL SLOW IVP PRN (21:55)
[2019-04-17] MEDS: Guaifenesin DM 100-10/5 ML UDCUP PO PRN (00:07)
[2019-04-17 05:39] LABS: #Lymphocytes 0.4 thou/uL (1.20-3.40); #Neutrophils 2.9 thou/uL (1.40-6.50); %Basophils 1.3 % (0.0-1.0); %Eosinophils 0.3 % (0.0-10.0); %Lymphocytes 10.6 % (21.0-51.0); %Neutrophils 86.9 % (42.0-75.0); Hemoglobin 10.9 g/dL (12.0-16.0); Mean Corpuscular HGB CONC 34.7 g/dL (32.0-36.0); Mean Corpuscular Hemoglobin 28.4 pg (27.0-31.0); Mean Corpuscular Volume 81.7 fL (78.0-98.0); Mean Platelet Volume 9.9 fL (7.4-10.4); Platelet Count 129 thou/uL (130-400); RBC Distribution Width 12.8 % (11.5-14.5); Red Blood Cell (RBC) Count 3.82 mill/uL (4.20-5.40); White Blood Cell (WBC) Count 3.3 thou/uL (4.8-10.8)
[2019-04-17] MEDS: Vancomycin HCl 1.75 GM in Sodium Chloride 0.9% 500 ML IVPB SCH (05:41)
[2019-04-17] MEDS: methylPREDNISolone Sod Succ 40 MG VIAL IVP SCH ×2 (05:41→11:32)
[2019-04-17] MEDS: Sodium Chloride 0.9% 1,000 ML IV SCH (05:41)
[2019-04-17] MEDS: Piperacillin/Tazobactam 4.5 GM in Sodium Chloride 0.9% 100 ML IVPB SCH ×2 (05:42→11:22)
[2019-04-17 05:58] LABS: Vancomycin, Trough 14.4 ug/mL
[2019-04-17 06:04] LABS: Anion Gap 5 mmol/L (10-20); BUN (Urea Nitrogen) 9 mg/dL (9.8-20.1); Calc. Creatinine Clearance 106 mL/min (70-130); Calcium 9.9 mg/dL (7.8-10.44); Carbon Dioxide 26 mmol/L (22-29); Chloride 112 mmol/L (98-107); Estimated GFR-MDRD Greater than 90; Glucose 177 mg/dL (70-105); Potassium 3.3 mmol/L (3.5-5.1); Sodium 140 mmol/L (136-145)
[2019-04-17] MEDS ORDERED: Lorazepam 1 MG TAB PO PRN (08:18)
[2019-04-17] MEDS ORDERED: Aspirin 81 mg Enteric Coated Tablet PO SCH (09:00)
[2019-04-17] MEDS ORDERED: Non-Formulary Item 1 EACH (Umeclidinium/Vilanterol [Anoro Ellipta 62.5/25 Mcg Inh] 1 PUFF INH SCH (09:00)
[2019-04-17] MEDS ORDERED: Atorvastatin Calcium 40 MG TAB PO SCH (09:00)
[2019-04-17] MEDS ORDERED: Amlodipine 5 MG TAB PO SCH (09:00)
--- NOTE | 2019-04-17 09:07 | CT ---
CTA chest with contrast: Multiple axial tomograms obtained through the chest following a pulmonary angiogram protocol with mul tiplanar reconstruction and 3-D postprocessing. INDICATIONS: Dyspnea and chest pain. Assess for pulmonary embolus. COMPARISON: CTA chest 04/15/2019 FINDINGS: Pulmonary arteries show adequate opacification. No evidence of pulmonary embolus identified. Thoracic aorta shows atherosclerotic change. No evidence of dissection. Nonspecific mediastinal adenopathy and left hilar mass lesion appear unchanged. Left perihilar and left lower lobe infiltrate is again seen and is unchanged. Images through the upper abdomen appear unremarkable. Soft tissues of the thorax appear unremarkable. Osseous structures of the thorax appear unremarkable. IMPRESSION: 1. No evidence of pulmonary embolus 2. Mediastinal adenopathy, left hilar mass, and left lung infiltrate all appear unchanged from 2018
[2019-04-17] MEDS: Mometasone/Formoterol 120 PUFF INHALER INH SCH (10:50)
[2019-04-17] MEDS: Acetaminophen 325 MG TAB PO PRN (11:09)
--- NOTE | 2019-04-17 11:09 | PDOC.HOSPP ---
- Subjective Subjective: Seen and examined. Patient seems clinically worse than yesterday. Having tachycardia through the night. Worsening shortness of breath, feels like she's not able to get any here in. Although she has had a negative CT angiography of the chest on admission will repeat CT scanned to ensure that there is no pulmonary embolism that may be hiding distally in the lung nielsen. Patient very tremulous and shaking from frequent nebulizer therapy. Anxiety medication added. All questions answered in detail. - Objective Vital Signs & Weight: Vital Signs (12 hours) Temp Pulse Resp BP Pulse Ox 04/17/19 10:50 114 H 20 04/17/19 10:44 118 H 20 04/17/19 07:40 96 04/17/19 07:17 97.7 F 125 H 24 H 165/90 H 96 04/17/19 03:36 99.1 F 121 H 20 133/99 H 97 04/17/19 01:17 88 16 98 04/16/19 23:15 97.9 F 116 H 20 166/79 H 96 Weight Admit Weight 174 lb Weight 174 lb I&O: 04/16/19 04/17/19 04/18/19 06:59 06:59 06:59 Intake Total 1420 Balance 1420 Result Diagrams: 04/17/19 04:47 04/17/19 04:47 Additional Labs: Accuchecks 04/17/19 04/16/19 05:40 20:24 POC Glucose 246 H 237 H Radiology Reviewed by me: Yes Hospitalist ROS - Review of Systems All other systems reviewed; all pertinent +/- noted in HPI/Subj - Medication Medications: Active Medications Generic Name Dose Route Start Last Admin Trade Name Freq PRN Reason Stop Dose Admin Acetaminophen 650 mg 04/15/19 14:30 04/16/19 09:13 Tylenol PO 650 mg Q6H PRN Administration Headache/Fever/Mild Pain (1-3) Albuterol/Ipratropium 3 ml 04/16/19 06:30 04/17/19 10:44 Duoneb NEB 3 ml [id number] HEATHER Administration Albuterol/Ipratropium 3 ml 04/16/19 04:47 04/16/19 05:07 Duoneb NEB 3 ml [id number] PRN Administration SOB &/or Wheezing Enoxaparin Sodium 40 mg 04/16/19 09:00 04/16/19 09:05 Lovenox SC 40 mg 0900 HEATHER Administration Gabapentin 900 mg 04/15/19 21:00 04/16/19 20:23 Neurontin PO 900 mg HS HEATHER Administration Guaifenesin 1,200 mg 04/16/19 21:00 04/16/19 20:23 Organ-I Nr PO 04/19/19 21:01 1,200 mg BID HEATHER Administration Guaifenesin/Dextromethorphan 15 ml 04/15/19 14:30 04/17/19 00:07 Robitussin Dm PO 15 ml Q4H PRN Administration Cough Hydralazine HCl 10 mg 04/16/19 21:55 04/16/19 22:21 Apresoline SLOW IVP 04/19/19 21:56 10 mg ONE PRN Administration Hypertension Piperacillin Sod/Tazobactam 100 mls @ 200 mls/hr 04/15/19 18:00 04/17/19 05: 42 Sod 4.5 gm/ Sodium Chloride IVPB 100 mls Q6HR HEATHER Administration Vancomycin HCl 1.75 gm/ Sodium 500 mls @ 250 mls/hr 04/15/19 18:00 04/17/19 05:41 Chloride IVPB 500 mls 0600,1800 HEATHER Administration Sodium Chloride 1,000 mls @ 75 mls/hr 04/16/19 09:35 04/17/19 05:41 Normal Saline 0.9% IV 1,000 mls .[id number] HEATHER Administration Labetalol HCl 10 mg 04/16/19 19:18 04/16/19 20:24 Normodyne SLOW IVP 10 mg Q4H PRN Administration SBP Greater Than 180 Lisinopril 10 mg 04/15/19 21:00 04/16/19 20:23 Zestril PO 10 mg BID HEATHER Administration Methylprednisolone Sodium Succinate 40 mg 04/16/19 12:00 04/17/19 05:41 Solu-Medrol IVP 40 mg Q6HR HEATHER Administration Mometasone Furoate/Formoterol Fumar 2 puff 04/16/19 18:30 04/17/19 10:50 Dulera 200 Mcg/5 Mcg Inhaler INH 2 puff BID-RT HEATHER Administration Sodium Chloride 10 ml 04/16/19 21:00 04/16/19 20:25 Flush - Normal Saline IVF Not Given Q12HR HEATHER - Exam General Appearance: ill appearing Eye: PERRL, anicteric sclera ENT: normocephalic atraumatic, moist mucosa Neck: supple, symmetric, no lymphadenopathy Heart: no murmur, no gallops, no rubs Heart - other findings: Tachycardia Respiratory: no rales, rhonchi, tachypneic, wheezes Respiratory - other findings: Decreased breath sounds in the lower lung nielsen Gastrointestinal: soft, non-tender, no guarding, no rigidity Extremities: no clubbing, no edema Skin: no lesions, no rashes Neurological: cranial nerve grossly intact, normal sensation to touch, no new deficit Musculoskeletal: generalized weakness Psychiatric: normal affect, A&O x 3 Hosp A/P (1) Pneumonia Code(s): J18.9 - PNEUMONIA, UNSPECIFIED ORGANISM Status: Acute (2) COPD exacerbation Code(s): J44.1 - CHRONIC OBSTRUCTIVE PULMONARY DISEASE W (ACUTE) EXACERBATION Status: Acute (3) CVA (cerebral vascular accident) Code(s): I63.9 - CEREBRAL INFARCTION, UNSPECIFIED Status: Acute Qualifiers: CVA mechanism: unspecified Qualified Code(s): I63.9 - Cerebral infarction, unspecified (4) Lung mass Code(s): R91.8 - OTHER NONSPECIFIC ABNORMAL FINDING OF LUNG FIELD Status: Acute (5) TIA (transient ischemic attack) Code(s): G45.9 - TRANSIENT CEREBRAL ISCHEMIC ATTACK, UNSPECIFIED Status: Acute (6) DM type 2 (diabetes mellitus, type 2) Status: Chronic Qualifiers: Diabetes mellitus medical terminologist insulin use: without nursing home use Diabetes mellitus complication status: with circulatory complication (7) Dyslipidemia Code(s): E78.5 - HYPERLIPIDEMIA, UNSPECIFIED Status: Chronic (8) HTN (hypertension) Code(s): I10 - ESSENTIAL (PRIMARY) HYPERTENSION Status: Chronic Qualifiers: Hypertension type: essential hypertension Qualified Code(s): I10 - Essential (primary) hypertension (9) Lung cancer Code(s): C34.90 - MALIGNANT NEOPLASM OF UNSP PART OF UNSP BRONCHUS OR LUNG Status: Chronic Qualifiers: Laterality: left (10) Occlusion of left internal carotid artery Code(s): I65.22 - OCCLUSION AND STENOSIS OF LEFT CAROTID ARTERY Status: Chronic (11) PVD (peripheral vascular disease) Code(s): I73.9 - PERIPHERAL VASCULAR DISEASE, UNSPECIFIED Status: Chronic - Plan Plan: medical unit with telemetry oncology consultation, recommendations appreciated pulmonology consultation, recommendations appreciated patient worse this a.m. with tachypnea and shortness of breath that is not improving overnight. Patient hypercoagulable state. Elevated risk for pulmonary embolism despite Lovenox prophylaxis dose secondary to lung cancer. Repeat CT angiography the chest, no pulmonary embolism identified continue IV antibiotics continue IV steroids continue breathing treatments anxiolytic therapy continue other home medications as able G.I. prophylaxis DVT prophylaxis - Lovenox
[2019-04-17] MEDS: Enoxaparin Sodium 40 MG/0.4 ML SYRINGE SC SCH (11:10)
[2019-04-17] MEDS: guaiFENesin 200 MG TAB PO SCH (11:11)
[2019-04-17] MEDS: Lisinopril 10 MG TAB PO SCH (11:11)
--- NOTE | 2019-04-17 11:25 | PDOC.HOSPP ---
- Subjective Subjective: Patient seen and examined on the a.m. of 04/16/2019 late entry. Patient was shortness of breath. Patient states that breathing treatments have helped. Patient responding to antibiotics. All questions answered in detail. - Objective Vital Signs & Weight: Vital Signs (12 hours) Temp Pulse Resp BP BP Pulse Ox 04/17/19 11:11 201/100 H 04/17/19 11:10 114 H 04/17/19 10:50 114 H 20 04/17/19 10:44 118 H 20 04/17/19 07:40 96 04/17/19 07:17 97.7 F 125 H 24 H 165/90 H 96 04/17/19 03:36 99.1 F 121 H 20 133/99 H 97 04/17/19 01:17 88 16 98 Weight Admit Weight 174 lb Weight 174 lb I&O: 04/16/19 04/17/19 04/18/19 06:59 06:59 06:59 Intake Total 1420 Balance 1420 Result Diagrams: 04/17/19 04:47 04/17/19 04:47 Additional Labs: Accuchecks 04/17/19 04/17/19 04/16/19 11:04 05:40 20:24 POC Glucose 144 H 246 H 237 H Radiology Reviewed by me: Yes Hospitalist ROS - Review of Systems All other systems reviewed; all pertinent +/- noted in HPI/Subj - Medication Medications: Active Medications Generic Name Dose Route Start Last Admin Trade Name Freq PRN Reason Stop Dose Admin Acetaminophen 650 mg 04/15/19 14:30 04/17/19 11:09 Tylenol PO 650 mg Q6H PRN Administration Headache/Fever/Mild Pain (1-3) Albuterol/Ipratropium 3 ml 04/16/19 06:30 04/17/19 10:44 Duoneb NEB 3 ml [id number] HEATHER Administration Albuterol/Ipratropium 3 ml 04/16/19 04:47 04/16/19 05:07 Duoneb NEB 3 ml [id number] PRN Administration SOB &/or Wheezing Amlodipine Besylate 5 mg 04/17/19 09:00 04/17/19 11:10 Norvasc PO 5 mg DAILY HEATHER Administration Aspirin 81 mg 04/17/19 09:00 04/17/19 11:10 Ecotrin PO 81 mg DAILY HEATHER Administration Atorvastatin Calcium 40 mg 04/17/19 09:00 04/17/19 11:10 Lipitor PO 40 mg DAILY HEATHER Administration Enoxaparin Sodium 40 mg 04/16/19 09:00 04/17/19 11:10 Lovenox SC 40 mg 0900 HEATHER Administration Gabapentin 900 mg 04/15/19 21:00 04/16/19 20:23 Neurontin PO 900 mg HS HEATHER Administration Guaifenesin 1,200 mg 04/16/19 21:00 04/17/19 11:11 Organ-I Nr PO 04/19/19 21:01 1,200 mg BID HEATHER Administration Guaifenesin/Dextromethorphan 15 ml 04/15/19 14:30 04/17/19 00:07 Robitussin Dm PO 15 ml Q4H PRN Administration Cough Hydralazine HCl 10 mg 04/16/19 21:55 04/16/19 22:21 Apresoline SLOW IVP 04/19/19 21:56 10 mg ONE PRN Administration Hypertension Piperacillin Sod/Tazobactam 100 mls @ 200 mls/hr 04/15/19 18:00 04/17/19 05: 42 Sod 4.5 gm/ Sodium Chloride IVPB 100 mls Q6HR HEATHER Administration Vancomycin HCl 1.75 gm/ Sodium 500 mls @ 250 mls/hr 04/15/19 18:00 04/17/19 05:41 Chloride IVPB 500 mls 0600,1800 HEATHER Administration Sodium Chloride 1,000 mls @ 75 mls/hr 04/16/19 09:35 04/17/19 05:41 Normal Saline 0.9% IV 1,000 mls .[id number] HEATHER Administration Labetalol HCl 10 mg 04/16/19 19:18 04/16/19 20:24 Normodyne SLOW IVP 10 mg Q4H PRN Administration SBP Greater Than 180 Lisinopril 10 mg 04/15/19 21:00 04/17/19 11:11 Zestril PO 10 mg BID HEATHER Administration Methylprednisolone Sodium Succinate 40 mg 04/16/19 12:00 04/17/19 05:41 Solu-Medrol IVP 40 mg Q6HR HEATHER Administration Mometasone Furoate/Formoterol Fumar 2 puff 04/16/19 18:30 04/17/19 10:50 Dulera 200 Mcg/5 Mcg Inhaler INH 2 puff BID-RT HEATHER Administration Sodium Chloride 10 ml 04/16/19 21:00 04/17/19 11:11 Flush - Normal Saline IVF 10 ml Q12HR HEATHER Administration - Exam General Appearance: NAD, awake alert Eye: PERRL ENT: normocephalic atraumatic, moist mucosa Neck: supple, symmetric, no lymphadenopathy Heart: no murmur, no gallops, no rubs Respiratory: normal chest expansion, no tachypnea, rhonchi, wheezes Gastrointestinal: soft, non-tender, no guarding, no rigidity Extremities: no edema Skin: no lesions, no rashes Neurological: cranial nerve grossly intact, no focal deficits Musculoskeletal: no muscle wasting Psychiatric: A&O x 3 Hosp A/P (1) Pneumonia Code(s): J18.9 - PNEUMONIA, UNSPECIFIED ORGANISM Status: Acute (2) COPD exacerbation Code(s): J44.1 - CHRONIC OBSTRUCTIVE PULMONARY DISEASE W (ACUTE) EXACERBATION Status: Acute (3) CVA (cerebral vascular accident) Code(s): I63.9 - CEREBRAL INFARCTION, UNSPECIFIED Status: Acute Qualifiers: CVA mechanism: unspecified Qualified Code(s): I63.9 - Cerebral infarction, unspecified (4) Lung mass Code(s): R91.8 - OTHER NONSPECIFIC ABNORMAL FINDING OF LUNG FIELD Status: Acute (5) TIA (transient ischemic attack) Code(s): G45.9 - TRANSIENT CEREBRAL ISCHEMIC ATTACK, UNSPECIFIED Status: Acute (6) DM type 2 (diabetes mellitus, type 2) Status: Chronic Qualifiers: 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 insulin use: without longterm use Diabetes mellitus complication status: with circulatory complication (7) Dyslipidemia Code(s): E78.5 - HYPERLIPIDEMIA, UNSPECIFIED Status: Chronic (8) HTN (hypertension) Code(s): I10 - ESSENTIAL (PRIMARY) HYPERTENSION Status: Chronic Qualifiers: Hypertension type: essential hypertension Qualified Code(s): I10 - Essential (primary) hypertension (9) Lung cancer Code(s): C34.90 - MALIGNANT NEOPLASM OF UNSP PART OF UNSP BRONCHUS OR LUNG Status: Chronic Qualifiers: Laterality: left (10) Occlusion of left internal carotid artery Code(s): I65.22 - OCCLUSION AND STENOSIS OF LEFT CAROTID ARTERY Status: Chronic (11) PVD (peripheral vascular disease) Code(s): I73.9 - PERIPHERAL VASCULAR DISEASE, UNSPECIFIED Status: Chronic - Plan Plan: medical unit with telemetry oncology consultation, recommendations appreciated pulmonology consultation, recommendations appreciated Follow culture data Symptomatic therapy continue IV antibiotics continue IV steroids continue breathing treatments continue other home medications as able G.I. prophylaxis DVT prophylaxis - Lovenox
[2019-04-17] MEDS ORDERED: Iopamidol 370 76% 100 ML VIAL ONE (11:42)
[2019-04-17 12:15] VITALS: BP 194/93; TEMP 97.9
--- NOTE | 2019-04-17 15:56 | PRG ---
DATE OF SERVICE: 04/17/2019 SUBJECTIVE: Ms. Piña has been walking in the [place]. She is in no distress. She has no complaints. She says she feels better when she came in. She still has mild resting tachycardia. OBJECTIVE: VITAL SIGNS: She is afebrile. Blood pressure has been elevated today as high as 201/100, respiratory rate is 18, and oximetry is 95%. LUNGS: Clear. HEART: Regular rhythm. ABDOMEN: Soft. IMPRESSION: 1. Chronic obstructive pulmonary disease exacerbation. 2. History of lung cancer. 3. Bronchitis. 4. Diabetes. PLAN: Continue supportive care. Increase her activity. We would hope she would be a candidate to go home in 1 to 2 days. Her blood pressure ideally needs to be under better control. She will continue with her nebulizer treatments. We will stop her IV steroids and switch her to p.o. steroids, p.o. antimicrobial therapy is reasonable as well. Job ID: [id number]
--- NOTE | 2019-04-18 07:22 | PQF ---
ROMASYMONE CARROLL WOOD [id number] CLINICAL DOCUMENTATION CLARIFICATION FORM: POST DISCHARGE Addendum to original discharge summary date: ____ Late entry note date: __ DATE:04/18/2019 ATTN: CARROLL MARTINEZ Please exercise your independent, professional judgment in responding to the clarification form. Clinical indicators are provided on the bottom of this form for your review Please check appropriate box(s) to clarify if the following diagnosis has been ruled in or ruled out: Sepsis [ ] Ruled in diagnosis [ ] Continue to treat [ ] Resolved [ ] Ruled out diagnosis [ ] Cannot rule out diagnosis [ ] Other diagnosis [ ] Unable to determine For continuity of documentation, please document condition throughout progress notes and discharge summary. Thank You. CLINICAL INDICATORS - SIGNS / SYMPTOMS / LABS Pulse-117,[id number]-[id number] in ED on 04/15 by Bernardino Duron Tachycardia-Documented in ED on 04/15 by Bernardino Duron The Patient did have fever of 100.1 degrees fahrenheit with chills-Documented in H&P on 04/15 by Carroll Martinez Healthcare-associated pneumonia-Documented in H&P on 04/15 by Carroll Martinez She dose have sepsis without any septic shock-Documented in H&P on 04/15 by Carroll Martinez RISK FACTORS Healthcare-associated pneumonia-Documented in H&P on 04/15 by Carroll Martinez TREATMENTS The patient is currently on IV zosyn and vancomycin-Documented in H&P on 04/15 by Carroll Martinez 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 All Rights Reserved [email or web address] [not provided] [email or web address]
--- NOTE | 2019-04-18 17:59 | DIS ---
DATE OF ADMISSION: 04/15/2019 DATE OF DISCHARGE: 04/17/2019 REASON FOR HOSPITALIZATION: Shortness of breath, sepsis, and COPD exacerbation. SIGNIFICANT FINDINGS: The patient was found to be septic with pulmonary source. The patient with past medical history of lung cancer, on chemotherapy, admitted with COPD exacerbation. PROCEDURES PERFORMED AND TREATMENTS RENDERED: The patient was admitted to medical unit with telemetry for close management. The patient was seen and evaluated by Internal Medicine, Oncology, and Pulmonology - please see full history and physical, consultation, and progress notes from all specialists for the full details. The patient had maximum medical therapy including IV antibiotics, IV steroids, and breathing treatments. Unfortunately, on on 04/17/2019, the patient states that she has to go to take care of her family and she can no longer stay in the hospital. Unfortunately, I was paged earlier in the day on this patient that she is having worsening shortness of breath with desaturation and she required additional interventions on an acute basis. The patient was not medically stable for discharge and therefore I could not safely discharge this patient, and she decided that she was going to leave against medical advice. I explicitly informed the patient and nursing staff that if she is to worsen that she is to return to hospital emergency department immediately. Even though the patient is leaving against medical advice, I did prescribe prescription medications including IV antibiotics, IV steroids, and inhaled short-acting beta agonist to help the patient with COPD exacerbation. CONDITION ON DISCHARGE: Guarded. SPECIFIC INSTRUCTIONS FOR THE PATIENT/FAMILY: 1. Prognosis guarded for this patient as she left against medical advice. 2. The patient is recommended to complete a full course of oral antibiotics, oral steroids, and use inhaler as needed for shortness of breath. 3. The patient is recommended to follow up with primary care physician in the next 2 to 3 days. 4. The patient is recommended to follow up with Oncology in the next 5 to 7 days. 5. The patient is recommended to follow up with Pulmonology in the next 1 to 2 weeks. 6. The patient is explicitly informed and nursing staff also educated her on returning to acute care hospital if she has any worsening symptoms. 7. The patient is recommended to return to acute care hospital immediately if signs or symptoms return, worsen, or any other new symptoms occur. TIME SPENT: Greater than 46 minutes spent in coordinating care and discharge process for this patient who left against medical advice. Job ID: [id number]
== END 2019-04-17 15:45 | disposition left against medical advice (07) | DRG 871 ==
LOC: ERS 11:09 → 2NO 17:53
PROVIDERS: ADMIT Student in an Organized Health Care Education/Training Program; ATTEND Student in an Organized Health Care Education/Training Program
DX: A41.9 Sepsis, unspecified organism (principal); J18.9 Pneumonia, unspecified organism; J44.1 Chronic obstructive pulmonary disease with (acute) exacerbation; D68.59 Other primary thrombophilia; C34.92 Malignant neoplasm of unspecified part of left bronchus or lung; J44.0 Chronic obstructive pulmonary disease with (acute) lower respiratory infection; E78.5 Hyperlipidemia, unspecified; E11.51 Type 2 diabetes mellitus with diabetic peripheral angiopathy without gangrene; I10 Essential (primary) hypertension; E11.9 Type 2 diabetes mellitus without complications; Z79.84 Long term (current) use of oral hypoglycemic drugs; Z86.718 Personal history of other venous thrombosis and embolism; Z86.73 Personal history of transient ischemic attack (TIA), and cerebral infarction without residual deficits; Z88.5 Allergy status to narcotic agent; Z87.891 Personal history of nicotine dependence; Z90.710 Acquired absence of both cervix and uterus
CPT/HCPCS: 36415; 36416; 71045; 71275; 80048; 80053; 80202; 82550; 83605; 83880; 84484; 85025; 87040; 93005; 94640; 94664; 94760; 96360; 96361; J0360; J1650; J2543; J2920; J3370; J3490; J7050; J7620; Q9967

== ENCOUNTER 2019-04-24 07:04 | Outpatient (CLI) | payer MEDICARE, MEDICAID ==
--- NOTE | 2019-04-24 10:08 | PET ---
PET CT: HISTORY: 58-year-old female with lung cancer. Last chemotherapy 04/10/19. Patient is status post chemo/radiati on therapy. Exam requested to evaluate for subsequent therapy. COMPARISON: PET CT of 04/25/18. CORRELATION: CT pulmonary angiogram of 04/17/19. FINDINGS: No hypermetabolic mediastinal, hilar, axillary, cervical, or abdominopelvic lymph nodes are seen. No hypermetabolic pulmonary nodules, lung mass, liver, adrenal, or skeletal lesions are identified. There is physiologic activity in the GI and tracts, heart, and the visualized portions of the brai n. The CT scan used for attenuation correction demonstrates no evidence of pleural effusions or ascites. IMPRESSION: No evidence of metastatic disease. POS: MELANIE
== END 2019-04-24 07:05 | disposition home or self-care (01) ==
LOC: PET 07:04
PROVIDERS: ATTEND Internal Medicine Hematology & Oncology
DX: C34.90 Malignant neoplasm of unspecified part of unspecified bronchus or lung (principal)
CPT/HCPCS: 78815; A9552

== ENCOUNTER 2019-05-08 08:56 | Day surgery (SDC) | payer MEDICARE, MEDICAID ==
[2019-05-08] MEDS ORDERED: Sodium Chloride 0.9% 20 ML ONE (09:02)
[2019-05-08 10:09] VITALS: BP 113/53; TEMP 98.4
== END 2019-05-08 11:02 | disposition home or self-care (01) ==
LOC: ONC/OP 08:56
PROVIDERS: ATTEND Internal Medicine Hematology & Oncology
DX: Z51.12 Encounter for antineoplastic immunotherapy (principal); C34.82 Malignant neoplasm of overlapping sites of left bronchus and lung; Z88.5 Allergy status to narcotic agent
CPT/HCPCS: 96413; J1642; J3490; J9173

== ENCOUNTER 2020-03-03 14:18 | Outpatient (CLI) | payer MEDICARE, MEDICAID ==
--- NOTE | 2020-03-03 14:50 | RAD ---
XR Chest Pa Lat STANDARD HISTORY: Acute bronchitis, lung cancer COMPARISON: 04/15/2019 FINDINGS: The heart size is normal. The lungs are well expanded without focal areas of consolidation, pneumothorax or pleural effusions. A right-sided Port-A-Cath is again seen. The aorta is tortuous. A left hilar density is similar to that seen on the CT scan of 04/17/2019.. IMPRESSION: No radiographic evidence of acute cardiopulmonary process.
== END 2020-03-03 14:19 | disposition home or self-care (01) ==
LOC: BICRAD 14:18
PROVIDERS: ATTEND Nurse Practitioner Family
DX: J20.9 Acute bronchitis, unspecified (principal)
CPT/HCPCS: 71046

== ENCOUNTER 2020-03-10 19:56 | Emergency (ER) | payer MEDICARE, MEDICAID ==
[~2020-03-10 19:56] MED LIST changes: -DURVALUMAB 500 MG, DURVALUMAB 240 MG in Sodium Chloride 0.9% 100 ML IV SCH; +Iopamidol-370 76% 500 ML 1 ML ONE
[2020-03-10 20:26] LABS: #Basophils 0.1 thou/uL (0.0-0.2); #Eosinphils 0.2 thou/uL (0.0-0.7); #Lymphocytes 3.2 thou/uL (1.20-3.40); #Monocytes 0.7 thou/uL (0.11-0.59); %Basophils 1.2 % (0.0-1.0); %Eosinophils 2.9 % (0.0-10.0); %Lymphocytes 38.3 % (21.0-51.0); %Monocytes 8.9 % (0.0-10.0); %Neutrophils 48.8 % (42.0-75.0); Hemoglobin 13.2 g/dL (12.0-16.0); Mean Corpuscular HGB CONC 34.7 g/dL (32.0-36.0); Mean Corpuscular Hemoglobin 29.3 pg (27.0-31.0); Mean Corpuscular Volume 84.4 fL (78.0-98.0); Mean Platelet Volume 9.1 fL (7.4-10.4); Platelet Count 202 thou/uL (130-400); RBC Distribution Width 13.9 % (11.5-14.5); Red Blood Cell (RBC) Count 4.51 mill/uL (4.20-5.40); White Blood Cell (WBC) Count 8.2 thou/uL (4.8-10.8)
[2020-03-10] MEDS ORDERED: Dexamethasone 10 MG/ML VIAL ONE (20:29)
--- NOTE | 2020-03-10 20:36 | RAD ---
Chest AP view INDICATION: History of lung cancer COMPARISON: March 03, 2020 FINDINGS: Lungs: Stable scarring within the left midlung. Cardiac silhouette: Stable mild cardiomegaly Pulmonary vasculature: Normal Pleural spaces: No pleural effusion or pneumothorax is demonstrated. Upper abdomen: No abnormality seen. Osseous structures: No acute osseous abnormality. Additional findings: Stable right subclavian chest wall port. IMPRESSION: No acute cardiopulmonary abnormality.
[2020-03-10 20:44] LABS: Bilirubin Negative (Negative); Blood, Urine Negative (Negative); Clarity Clear (Clear); Glucose, Urine (Dipstick) Normal (Negative); Ketone, Urine Negative (Negative); Leukocyte 75 Leu/uL (Negative); Mucous/LPF Rare LPF (<2+); Nitrite Negative (Negative); Protein, Urine (Dipstick) Negative (Neg-Trace); RBC/HPF 0-3 HPF (0-3); Specific Gravity, Urine 1.027 (1.002-1.036); Squamous Epithelial 0-3 HPF (0-3); Urobilinogen Normal mg/dL (Less than 2)
[2020-03-10 20:45] LABS: ALT (SGPT) 23 U/L (8-55); AST (SGOT) 13 U/L (5-34); Albumin 3.3 g/dL (3.4-4.8); Alkaline Phosphatase 58 U/L (40-110); Anion Gap 8 mmol/L (10-20); BUN (Urea Nitrogen) 16 mg/dL (9.8-20.1); Bilirubin, Total 0.3 mg/dL (0.2-1.2); Calc. Creatinine Clearance 0 mL/min (70-130); Calcium 10.6 mg/dL (7.8-10.44); Carbon Dioxide 29 mmol/L (23-31); Chloride 107 mmol/L (98-107); Estimated GFR-MDRD 87; Globulin 3.2 g/dL (2.4-3.5); Glucose 161 mg/dL (80-115); Potassium 4.1 mmol/L (3.5-5.1); Protein, Total 6.5 g/dL (6.0-8.3); Sodium 140 mmol/L (136-145)
[2020-03-10] MEDS ORDERED: Albuterol 200 PUFF (6.7GM INHALER) ONE (20:46)
[2020-03-10 20:52] LABS: Bacteria/HPF 1+ HPF (None Seen)
--- NOTE | 2020-03-10 22:06 | CT ---
CTA Angio Chest W WO Con 03/10/2020 9:37 PM Indication: History of COPD, lung cancer with shortness of breath, cough and chills Technique: Multiple CTA images were obtained of the thorax with IV contrast. 3-D rendering: MIP thi nstructed images were created and reviewed. Comparison: Prior exam dated April 09, 2019 Findings: Pulmonary arteries: No central or segmental pulmonary embolus is evident. Heart and Aorta: There are coronary artery and thoracic aortic calcifications. There is an enlarging tiny pericardial effusion. Mediastinum:Normal appearing. No enlarged lymph nodes. Lungs:The soft tissue density surrounding the hilar structures of the left lung appear stable. There are evolutionary changes involving the radiation therapy fibrosis involving the left perihilar region. No new suspicious pulmonary nodule, acute infiltrate or pneumothorax is evident. Scattered em physema is stable. Pleural space: Clear. Upper Abdomen: No acute abnormality. Osseous Structures: No acute osseous abnormality. Soft tissues:No abnormality. Other findings:None. Impression: 1. No central or segmental pulmonary embolus demonstrated. 2. Stable therapy changes involve the left hilar and perihilar lung. No definite recurrent soft tissu e mass is demonstrated. 3. Stable emphysema. 4. New tiny pericardial effusion
== END 2020-03-10 23:21 | disposition home or self-care (01) ==
LOC: ERS 19:56
DX: J44.1 Chronic obstructive pulmonary disease with (acute) exacerbation (principal); N39.0 Urinary tract infection, site not specified; E11.9 Type 2 diabetes mellitus without complications; I10 Essential (primary) hypertension; Z87.891 Personal history of nicotine dependence; Z79.899 Other long term (current) drug therapy
CPT/HCPCS: 71045; 71275; 80053; 81003; 81015; 84484; 85025; 93005; 96374; J1100; Q9967

== ENCOUNTER 2020-09-16 07:54 | Outpatient (CLI) | payer MEDICARE, MEDICAID ==
[2020-09-16 09:15] LABS: Estimated GFR-MDRD - POC Greater than 90
== END 2020-09-16 07:55 | disposition home or self-care (01) ==
LOC: BICCT 07:54 → CT 07:55
PROVIDERS: ATTEND Internal Medicine Hematology & Oncology
DX: C34.82 Malignant neoplasm of overlapping sites of left bronchus and lung (principal); Z98.890 Other specified postprocedural states
CPT/HCPCS: 71260; 74160; 82565

== ENCOUNTER 2021-09-25 19:04 | Emergency (ER) | payer MEDICARE, MEDICAID ==
[2021-09-25 19:49] LABS: #Basophils 0.1 thou/uL (0.0-0.2); #Eosinphils 0.1 thou/uL (0.0-0.7); #Lymphocytes 2.3 thou/uL (1.20-3.40); #Monocytes 0.7 thou/uL (0.11-0.59); #Neutrophils 4.4 thou/uL (1.40-6.50); %Basophils 1.1 % (0.0-1.0); %Eosinophils 1.7 % (0.0-10.0); %Lymphocytes 30.7 % (21.0-51.0); %Monocytes 8.5 % (0.0-10.0); %Neutrophils 58.1 % (42.0-75.0); Hemoglobin 12.6 g/dL (12.0-16.0); Mean Corpuscular HGB CONC 34.2 g/dL (32.0-36.0); Mean Corpuscular Hemoglobin 30.2 pg (27.0-31.0); Mean Corpuscular Volume 88.3 fL (78.0-98.0); Mean Platelet Volume 9.4 fL (7.4-10.4); Platelet Count 156 thou/uL (130-400); RBC Distribution Width 13.1 % (11.5-14.5); Red Blood Cell (RBC) Count 4.16 mill/uL (4.20-5.40); White Blood Cell (WBC) Count 7.6 thou/uL (4.8-10.8)
[2021-09-25] MEDS ORDERED: Meclizine HCl 25 MG TAB ONE (19:57)
[2021-09-25 20:09] LABS: ALT (SGPT) 42 U/L (8-55); AST (SGOT) 24 U/L (5-34); Albumin 3.7 g/dL (3.4-4.8); Alkaline Phosphatase 44 U/L (40-110); Anion Gap 14 mmol/L (10-20); BUN (Urea Nitrogen) 42 mg/dL (9.8-20.1); Bilirubin, Total 0.4 mg/dL (0.2-1.2); CK (CPK) 70 U/L (29-168); Calc. Creatinine Clearance 0 mL/min (70-130); Calcium 10.5 mg/dL (7.8-10.44); Carbon Dioxide 22 mmol/L (23-31); Chloride 107 mmol/L (98-107); Globulin 3.4 g/dL (2.4-3.5); Glucose 96 mg/dL (80-115); Protein, Total 7.1 g/dL (5.8-8.1); Sodium 139 mmol/L (136-145)
== END 2021-09-25 22:14 | disposition home or self-care (01) ==
LOC: ERS 19:04
DX: E86.0 Dehydration (principal); R42 Dizziness and giddiness; E11.9 Type 2 diabetes mellitus without complications; I10 Essential (primary) hypertension; Z87.891 Personal history of nicotine dependence; Z79.899 Other long term (current) drug therapy; Z79.84 Long term (current) use of oral hypoglycemic drugs; Z79.82 Long term (current) use of aspirin
CPT/HCPCS: 36415; 70450; 80053; 82550; 85025; 93005; 96374; J1642

== ENCOUNTER 2021-12-30 10:56 | Outpatient (CLI) | payer OTHER, MEDICAID | END 2021-12-30 10:57 | disposition home or self-care (01) | LOC: BICMAMMO 10:56 | PROVIDERS: ATTEND Family Medicine | DX: Z12.31 Encounter for screening mammogram for malignant neoplasm of breast (principal) | CPT/HCPCS: 77063; 77067 ==

== ENCOUNTER 2022-07-31 08:35 | Outpatient (CLI) | payer OTHER, MEDICAID ==
[2022-07-31] MEDS ORDERED: Iopamidol-370 76% 500 ML 1 ML ONE (11:02)
== END 2022-07-31 08:36 | disposition home or self-care (01) ==
LOC: BICCT 08:35
PROVIDERS: ATTEND Internal Medicine Hematology & Oncology
DX: C34.82 Malignant neoplasm of overlapping sites of left bronchus and lung (principal); E11.9 Type 2 diabetes mellitus without complications; J92.9 Pleural plaque without asbestos
CPT/HCPCS: 71260; 82565

== ENCOUNTER → 2022-08-18 | Outpatient (CLI) | payer OTHER, MEDICAID | LOC: PET 08:00 | PROVIDERS: ATTEND Internal Medicine Hematology & Oncology | DX: C34.82 Malignant neoplasm of overlapping sites of left bronchus and lung (principal); R91.8 Other nonspecific abnormal finding of lung field | CPT/HCPCS: 78815; A9552 ==

== ENCOUNTER 2022-09-21 13:15 | Inpatient (IN) | payer OTHER, MEDICAID ==
[~2022-09-21 13:15] MED LIST changes: -Iopamidol-370 76% 500 ML 1 ML ONE; +Iopamidol-370 76% 500 ML MDV (1 ML CHARGE) ONE
[2022-09-21 13:49] LABS: #Eosinphils 0.1 thou/uL (0.0-0.7); #Lymphocytes 1.6 thou/uL (1.20-3.40); #Monocytes 0.6 thou/uL (0.11-0.59); %Basophils 0.2 % (0.0-1.0); %Eosinophils 0.8 % (0.0-10.0); %Lymphocytes 21.6 % (21.0-51.0); %Monocytes 8.3 % (0.0-10.0); %Neutrophils 69.1 % (42.0-75.0); Hemoglobin 11.6 g/dL (12.0-16.0); Mean Corpuscular HGB CONC 34.7 g/dL (32.0-36.0); Mean Corpuscular Hemoglobin 29.2 pg (27.0-31.0); Mean Corpuscular Volume 84.1 fl (78.0-98.0); Mean Platelet Volume 9.9 fL (7.4-10.4); Platelet Count 160 10x3/uL (130-400); RBC Distribution Width 14.1 % (11.5-14.5); Red Blood Cell (RBC) Count 3.97 mill/uL (4.20-5.40); White Blood Cell (WBC) Count 7.3 10x3/uL (4.8-10.8)
[2022-09-21 14:06] LABS: ALT (SGPT) 43 U/L (8-55); AST (SGOT) 29 U/L (5-34); Albumin 3.5 g/dL (3.4-4.8); Alkaline Phosphatase 55 U/L (40-110); Anion Gap 13 mmol/L (10-20); BUN (Urea Nitrogen) 18 mg/dL (9.8-20.1); Bilirubin, Total 0.6 mg/dL (0.2-1.2); Calc. Creatinine Clearance 0 mL/min (70-130); Calcium 11.4 mg/dL (7.8-10.44); Carbon Dioxide 24 mmol/L (23-31); Chloride 106 mmol/L (98-107); Estimated GFR 63; Globulin 3.6 g/dL (2.4-3.5); Glucose 95 mg/dL (80-115); Potassium 3.9 mmol/L (3.5-5.1); Protein, Total 7.1 g/dL (5.8-8.1); Sodium 139 mmol/L (136-145)
[2022-09-21 14:38] LABS: PTT 23.7 sec (22.9-36.1); Prothrombin Time 13.6 sec (12.0-14.7)
[2022-09-21] MEDS ORDERED: hydrALAZINE 20 MG/ML VIAL SLOW IVP PRN (16:21)
[2022-09-21] MEDS ORDERED: Senokot S 8.6-50 MG TAB PO PRN (16:22)
[2022-09-21] MEDS ORDERED: Acetaminophen 325 MG TAB PO PRN (16:22)
[2022-09-21] MEDS ORDERED: HYDROcodone/Acetaminophen 5/325 mg Tablet PO PRN (16:22)
[2022-09-21] MEDS ORDERED: Calcium Carbonate 500 MG ChewTAB PO PRN (16:22)
[2022-09-21] MEDS ORDERED: Dextrose 50% Abboject 50 ML SYRINGE SLOW IVP PRN (16:24)
[2022-09-21] MEDS ORDERED: Dextrose 5% in Water 1,000 ML IV PRN (16:24)
[2022-09-21] MEDS: Atorvastatin Calcium 40 MG TAB PO SCH (20:44)
[2022-09-21 21:46] VITALS: BMI 32.2
[2022-09-22 04:58] LABS: Hemoglobin A1c 5.7 % (4.0-6.0)
[2022-09-22 05:07] LABS: Hemoglobin 10.5 g/dL (12.0-16.0); Mean Corpuscular HGB CONC 30.7 g/dL (32.0-36.0); Mean Corpuscular Hemoglobin 26.2 pg (27.0-31.0); Mean Corpuscular Volume 85.4 fl (78.0-98.0); Mean Platelet Volume 10.1 fL (7.4-10.4); Platelet Count 159 10x3/uL (130-400); RBC Distribution Width 14.3 % (11.5-14.5); Red Blood Cell (RBC) Count 4.02 mill/uL (4.20-5.40)
[2022-09-22 05:13] LABS: Anion Gap 12 mmol/L (10-20); BUN (Urea Nitrogen) 14 mg/dL (9.8-20.1); Calc. Creatinine Clearance 74 mL/min (70-130); Calcium 10.8 mg/dL (7.8-10.44); Carbon Dioxide 24 mmol/L (23-31); Cardiac Risk 3.3 (Less than 4.5); Chloride 104 mmol/L (98-107); Cholesterol 140 mg/dl (< 200 Desired); Estimated GFR 70; Glucose 145 mg/dL (80-115); HDL Cholesterol 42 mg/dL (>60 Neg Risk); LDL Cholesterol, Calculated 76 mg/dL; Potassium 3.3 mmol/L (3.5-5.1); Sodium 137 mmol/L (136-145); Triglycerides 108 mg/dL (Less than 150)
[2022-09-22] MEDS: HumaLOG 300 UNITS/3 ML VIAL SC PRN (06:39)
[2022-09-22 08:07] LABS: Band 1 % (5-11); Hypochromia SLIGHT = 6-15 cells (100X) (0-5/hpf); Lymphocytes 36 % (21-51); MDiff Complete? YES; Monocytes 8 % (0-10); Neutrophil 55 % (42-75); Platelet Morphology Comment Appears Adequate; Polychromasia SLIGHT = 2-3 cells (100X) (0-2/hpf)
[2022-09-22] MEDS: Aspirin 81 mg Enteric Coated Tablet PO SCH (08:37)
[2022-09-22] MEDS: Clopidogrel Bisulfate 75 MG TAB PO SCH (08:37)
[2022-09-22] MEDS: Atorvastatin Calcium 40 MG TAB PO SCH (20:07)
[2022-09-23] MEDS: HumaLOG 300 UNITS/3 ML VIAL SC PRN (05:23)
[2022-09-23 05:27] LABS: Anion Gap 12 mmol/L (10-20); BUN (Urea Nitrogen) 12 mg/dL (9.8-20.1); Calc. Creatinine Clearance 83 mL/min (70-130); Calcium 11.5 mg/dL (7.8-10.44); Carbon Dioxide 25 mmol/L (23-31); Chloride 103 mmol/L (98-107); Estimated GFR 80; Glucose 133 mg/dL (80-115); Potassium 3.6 mmol/L (3.5-5.1); Sodium 136 mmol/L (136-145)
[2022-09-23] MEDS: Clopidogrel Bisulfate 75 MG TAB PO SCH (08:26)
[2022-09-23] MEDS: Aspirin 81 mg Enteric Coated Tablet PO SCH (08:26)
[2022-09-23] MEDS: Atorvastatin Calcium 40 MG TAB PO SCH (19:50)
[2022-09-24 05:10] LABS: Anion Gap 11 mmol/L (10-20); BUN (Urea Nitrogen) 12 mg/dL (9.8-20.1); Calc. Creatinine Clearance 80 mL/min (70-130); Calcium 11.6 mg/dL (7.8-10.44); Carbon Dioxide 26 mmol/L (23-31); Chloride 104 mmol/L (98-107); Estimated GFR 77; Glucose 122 mg/dL (80-115); Potassium 3.7 mmol/L (3.5-5.1); Sodium 137 mmol/L (136-145)
[2022-09-24] MEDS: Aspirin 81 mg Enteric Coated Tablet PO SCH (09:11)
[2022-09-24] MEDS: Clopidogrel Bisulfate 75 MG TAB PO SCH (09:11)
[2022-09-24] MEDS ORDERED: Acetaminophen 500 MG TAB PO PRN (16:08)
[2022-09-24] MEDS ORDERED: oxyCODONE 5 MG TAB PO SCH (16:15)
[2022-09-24] MEDS ORDERED: Lisinopril 20 MG TAB PO SCH (16:30)
[2022-09-24] MEDS ORDERED: Hydrochlorothiazide 25 MG TAB PO SCH (16:30)
[2022-09-24] MEDS: Lactated Ringer's 1,000 ML IV SCH (16:41)
[2022-09-24] MEDS: Gabapentin 300 MG CAP PO SCH (20:38)
[2022-09-24] MEDS: Atorvastatin Calcium 40 MG TAB PO SCH (20:39)
[2022-09-24] MEDS: buPROPion 75 MG TAB PO SCH (20:39)
[2022-09-25] MEDS: Lactated Ringer's 1,000 ML IV SCH (01:16)
[2022-09-25 05:32] LABS: Anion Gap 10 mmol/L (10-20); BUN (Urea Nitrogen) 13 mg/dL (9.8-20.1); Calc. Creatinine Clearance 82 mL/min (70-130); Calcium 10.3 mg/dL (7.8-10.44); Carbon Dioxide 28 mmol/L (23-31); Chloride 104 mmol/L (98-107); Estimated GFR 79; Glucose 121 mg/dL (80-115); Potassium 3.8 mmol/L (3.5-5.1); Sodium 138 mmol/L (136-145)
[2022-09-25] MEDS: buPROPion 75 MG TAB PO SCH ×2 (08:46→20:29)
[2022-09-25] MEDS: Aspirin 81 mg Enteric Coated Tablet PO SCH (08:47)
[2022-09-25] MEDS: Lisinopril 10 MG TAB PO SCH (08:47)
[2022-09-25] MEDS: Clopidogrel Bisulfate 75 MG TAB PO SCH (08:47)
[2022-09-25] MEDS: Hydrochlorothiazide 25 MG TAB PO SCH (08:47)
[2022-09-25] MEDS: HumaLOG 300 UNITS/3 ML VIAL SC PRN ×2 (11:54→17:57)
[2022-09-25] MEDS: Gabapentin 300 MG CAP PO SCH (20:29)
[2022-09-25] MEDS: Atorvastatin Calcium 40 MG TAB PO SCH (20:29)
[2022-09-26 05:29] LABS: Anion Gap 8 mmol/L (10-20); BUN (Urea Nitrogen) 14 mg/dL (9.8-20.1); Calc. Creatinine Clearance 72 mL/min (70-130); Calcium 10.9 mg/dL (7.8-10.44); Carbon Dioxide 29 mmol/L (23-31); Chloride 105 mmol/L (98-107); Estimated GFR 67; Glucose 135 mg/dL (80-115); Sodium 138 mmol/L (136-145)
[2022-09-26] MEDS: Lisinopril 10 MG TAB PO SCH (08:01)
[2022-09-26] MEDS: Aspirin 81 mg Enteric Coated Tablet PO SCH (08:01)
[2022-09-26] MEDS: Clopidogrel Bisulfate 75 MG TAB PO SCH (08:01)
[2022-09-26] MEDS: buPROPion 75 MG TAB PO SCH (08:01)
[2022-09-26] MEDS: Hydrochlorothiazide 25 MG TAB PO SCH (08:02)
[2022-09-26 11:52] VITALS: BP 181/88; TEMP 97.7
== END 2022-09-26 15:29 | DRG 65 ==
LOC: EDBD → ERS 13:15 → EDUNIT# 13:15 → NEURO 15:38
PROVIDERS: ADMIT Hospitalist; ATTEND Hospitalist
DX: I63.9 Cerebral infarction, unspecified (principal); C34.90 Malignant neoplasm of unspecified part of unspecified bronchus or lung; I69.351 Hemiplegia and hemiparesis following cerebral infarction affecting right dominant side; R29.706 NIHSS score 6; E83.52 Hypercalcemia; E78.5 Hyperlipidemia, unspecified; F17.210 Nicotine dependence, cigarettes, uncomplicated; G83.11 Monoplegia of lower limb affecting right dominant side; I65.22 Occlusion and stenosis of left carotid artery; E11.51 Type 2 diabetes mellitus with diabetic peripheral angiopathy without gangrene; Z98.890 Other specified postprocedural states; Z88.5 Allergy status to narcotic agent; Z79.899 Other long term (current) drug therapy; Z79.84 Long term (current) use of oral hypoglycemic drugs; Z90.710 Acquired absence of both cervix and uterus; Z79.82 Long term (current) use of aspirin
CPT/HCPCS: 0042T; 36415; 36416; 70450; 70496; 70498; 70551; 80048; 80053; 80061; 82310; 83036; 83970; 84484; 85025; 85610; 85730; 93005; 93010; 93306; 94760; J1650; J1815; J7120; Q9967

== ENCOUNTER 2022-11-23 09:26 | Outpatient (CLI) | payer OTHER, MEDICAID | END 2022-11-23 09:27 | disposition home or self-care (01) | LOC: CT 09:26 | PROVIDERS: ATTEND Internal Medicine Critical Care Medicine | DX: R91.8 Other nonspecific abnormal finding of lung field (principal) | CPT/HCPCS: 71260; 82565 ==

== ENCOUNTER 2023-04-09 09:16 | Outpatient (CLI) | payer OTHER, MEDICAID ==
[2023-04-09] MEDS ORDERED: Iopamidol 370 76% 100 ML VIAL ONE (10:48)
== END 2023-04-09 09:17 | disposition home or self-care (01) ==
LOC: CT 09:16
PROVIDERS: ATTEND Internal Medicine Critical Care Medicine
DX: R91.8 Other nonspecific abnormal finding of lung field (principal)
CPT/HCPCS: 71260

== ENCOUNTER 2023-10-10 09:30 | Outpatient (CLI) | payer MEDICARE ==
[2023-10-10] MEDS ORDERED: Iopamidol 370 76% 100 ML VIAL ONE (11:00)
== END 2023-10-10 09:31 | disposition home or self-care (01) ==
LOC: BICCT 09:30
PROVIDERS: ATTEND Internal Medicine Critical Care Medicine
DX: R91.8 Other nonspecific abnormal finding of lung field (principal); I70.8 Atherosclerosis of other arteries; K55.1 Chronic vascular disorders of intestine
CPT/HCPCS: 71260; 82565; Q9967

== ENCOUNTER 2024-06-17 08:33 | Outpatient (CLI) | payer MEDICARE | END 2024-06-17 08:34 | disposition home or self-care (01) | LOC: RAD 08:33 | PROVIDERS: ATTEND Internal Medicine Critical Care Medicine | DX: R06.00 Dyspnea, unspecified (principal); R91.8 Other nonspecific abnormal finding of lung field; J98.4 Other disorders of lung; Z95.828 Presence of other vascular implants and grafts | CPT/HCPCS: 71046 ==

== ENCOUNTER 2024-12-12 09:46 | Outpatient (CLI) | payer OTHER, MEDICAID | END 2024-12-12 09:47 | disposition home or self-care (01) | LOC: RAD 09:46 | PROVIDERS: ATTEND Internal Medicine Critical Care Medicine | DX: R06.00 Dyspnea, unspecified (principal) | CPT/HCPCS: 71046 ==

== ENCOUNTER 2025-05-20 08:26 | Emergency (ER) | payer MEDICARE, MEDICAID ==
[2025-05-20] MEDS ORDERED: cefTRIAXone (ROCEPHIN) 2 GM VIAL ONE (08:48)
[2025-05-20] MEDS ORDERED: Azithromycin 500 MG VIAL ONE (08:49)
[2025-05-20 09:05] LABS: #Basophils 0.04 10x3/uL (0.0-0.2); #Eosinophils 0.08 10x3/uL (0.0-0.7); #Monocytes 0.37 10x3/uL (0.11-0.59); #Neutrophils 2.72 10x3/uL (1.40-6.50); %Basophils 0.9 % (0.0-1.0); %Eosinophils 1.8 % (0.0-10.0); %Lymphocytes 25.6 % (21.0-51.0); %Monocytes 8.5 % (0.0-10.0); %Neutrophils 62.7 % (42.0-75.0); Hematocrit 39.4 % (36.0-47.0); Hemoglobin 13.0 g/dL (12.0-16.0); Mean Corpuscular Hemoglobin 26.3 pg (27.0-31.0); Mean Corpuscular Volume 79.8 fL (78.0-98.0); Platelet Count 205 10x3/uL (130-400); Red Blood Cell (RBC) Count 4.94 mill/uL (4.20-5.40); White Blood Cell (WBC) Count 4.34 10x3/uL (4.8-10.8)
[2025-05-20 09:18] LABS: INR-International Normal Ratio 1.0; Prothrombin Time 13.8 sec (12.0-14.7)
[2025-05-20 09:19] LABS: ALT (SGPT) 44 U/L (Less than 34); AST (SGOT) 40 U/L (11-34); Albumin 3.4 g/dL (3.1-4.5); Alkaline Phosphatase 55 U/L (40-110); Anion Gap 13 mmol/L (10-20); BUN (Urea Nitrogen) 21 mg/dL (9.8-20.1); Bilirubin, Total 0.5 mg/dL (0.3-1.2); Calc. Creatinine Clearance 0 mL/min (70-130); Calcium 11.2 mg/dL (7.8-10.44); Carbon Dioxide 26 mmol/L (23-31); Chloride 100 mmol/L (98-107); Globulin 5.1 g/dL (2.4-3.5); Glucose 122 mg/dL (80-115); PTT 28.8 sec (22.9-36.1); Potassium 4.1 mmol/L (3.5-5.1); Sodium 135 mmol/L (136-145)
[2025-05-20] MEDS ORDERED: Benzonatate 100 MG CAP ONE (12:33)
== END 2025-05-20 12:45 | disposition home or self-care (01) ==
LOC: ERS 08:26
DX: J18.9 Pneumonia, unspecified organism (principal); R74.01 Elevation of levels of liver transaminase levels; E11.65 Type 2 diabetes mellitus with hyperglycemia; I10 Essential (primary) hypertension; E78.5 Hyperlipidemia, unspecified; F17.210 Nicotine dependence, cigarettes, uncomplicated; Z86.73 Personal history of transient ischemic attack (TIA), and cerebral infarction without residual deficits; Z79.899 Other long term (current) drug therapy; Z79.84 Long term (current) use of oral hypoglycemic drugs; Z79.51 Long term (current) use of inhaled steroids
CPT/HCPCS: 71045; 80053; 83605; 83880; 85025; 85610; 85730; 87040; 87428; 93005; 94640; 94760; J0456; J0696; J2919; 96365; 96367; 96375